=== PATIENT | female | born 1935 | race American Indian/Alaskan Native ===

== ENCOUNTER 2017-02-16 18:23 | Inpatient (IN) | payer MEDICARE, OTHER ==
[2017-02-16] MEDS ORDERED: Vancomycin 1gm in NS 250ml 1 GM/250 ML BAG IVPB STA (18:51)
[2017-02-16] MEDS ORDERED: Sodium Chloride 0.9% 1,000 ML IV STA ×2 (18:52→21:13)
--- NOTE | 2017-02-16 18:53 | ED PDOC ---
Arrival/HPI - General Chief Complaint: Altered Mental Status Time Seen by Provider: 02/16/17 18:29 Historian: Patient - History of Present Illness Narrative History of Present Illness (Text): 02/16/17 18:49 81 year old female whose past medical history includes dementia and diabetes presents to the emergency department after syncopal episode. Patient was slumped over in chair. Last seen normal last evening. As per EMS, patient has a history of dementia. Time/Duration: 24 hours Symptom Onset: Sudden Modifying Factors (Text): None Associated Symptoms (Text): None Past Medical History - Provider Review Nursing Documentation Reviewed: Yes - Infectious Disease Hx of Infectious Diseases: None - Tetanus Immunization Tetanus Immunization: Unknown - Reproductive Menopause: Yes - Cardiac Hx Cardiac Disorders: Yes Hx Hypertension: Yes - Pulmonary Hx Respiratory Disorders: Yes Hx Pneumonia: Yes - Neurological Hx Neurological Disorder: Yes Hx Alzheimer's Disease: Yes Hx Dementia: Yes - HEENT Hx HEENT Disorder: Yes - Renal Hx Renal Disorder: No - Endocrine/Metabolic Hx Endocrine Disorders: Yes Hx Diabetes Mellitus Type 2: Yes - Hematological/Oncological Hx Blood Disorders: Yes Hx Anemia: Yes - Integumentary Hx Dermatological Disorder: No - Musculoskeletal/Rheumatological Hx Musculoskeletal Disorders: Yes Hx Falls: Yes Hx Fractures: Yes Hx Osteomyelitis: Yes Hx Unsteady Gait: Yes - Gastrointestinal Hx Gastrointestinal Disorders: Yes HX Swallowing Problems: Yes - Genitourinary/Gynecological Hx Genitourinary Disorders: Yes Hx Incontinence: Yes Hx Urinary Tract Infection: Yes - Psychiatric Hx Psychophysiologic Disorder: Yes Hx Anxiety: Yes Hx Depression: Yes Hx Substance Use: No - Past Surgical History Past Surgical History: No Previous - Surgical History Hx Amputation: Yes Hx Cardiac Catheterization: Yes Hx Coronary Artery Bypass Graft: Yes Hx Coronary Stent: Yes Hx Musculoskeletal Surgery: Yes (L BKA) - Anesthesia Hx Anesthesia: Yes Hx Anesthesia Reactions: No Hx Malignant Hyperthermia: No - Suicidal Assessment Feels Threatened In Home Enviroment: No Family/Social History - Physician Review Nursing Documentation Reviewed: Yes Family/Social History: Unknown Family HX Smoking Status: Unknown If Ever Smoked Hx Alcohol Use: No Hx Substance Use: No Hx Substance Use Treatment: No Allergies/Home Meds Allergies/Adverse Reactions: Allergies No Known Allergies Allergy (Verified 02/16/17 19:00) Home Medications: Home Meds Medication Instructions Recorded Confirmed Famotidine [Pepcid] 20 mg PO BID 02/19/16 02/16/17 Losartan [Cozaar] 25 mg PO DAILY 02/19/16 02/16/17 Metoprolol Tartrate [Lopressor] 25 mg PO TID 02/19/16 02/16/17 Amiodarone [Cordarone] 200 mg PO DAILY 09/27/16 02/16/17 Atorvastatin [Lipitor] 10 mg PO DIN 09/27/16 02/16/17 Folic Acid 1 mg PO DAILY 09/27/16 02/16/17 MetFORMIN [glucoPHAGE] 1,000 mg PO BID 10/11/16 02/16/17 Review of Systems - Review of Systems Systems not reviewed;Unavailable: Dementia Physical Exam - Physical Exam Narrative Physical Exam (Text): - Physical exam Patient appears age appropriate - Systems Exam Head: Present: Atraumatic, Normocephalic Pupils: Present: PERRL Extraocular Muscles: Present: EOMI Conjunctiva: Present: Normal Mouth: Present: Dry Mucous Membranes Neck: Present: Normal Range of Motion. No: MIDLINE TENDERNESS, Paraspinal Tenderness Respiratory/Chest: Present: Protecting Airway, Clear to Auscultation, Good Air Exchange. No: Respiratory Distress, Accessory Muscle Use, Tachypneic Cardiovascular: Present: Regular Rate and Rhythm, Normal S1, S2, Peripheral Pulses Present. No: Murmurs Abdomen: Present: Normal Bowel Sounds, No: Tenderness, Peritoneal Signs, Rebound, Guarding, Distention Back: Present: Normal Inspection. No: Midline Tenderness, Paraspinal Tenderness Upper Extremity: Present: Normal Inspection. No: Cyanosis, Edema Lower Extremity: Present: Left BKA No: Edema Neurological: Present: No focal neurological deficits. Skin: Present: Stage III sacral decubitus foul smelling ulcer No: Rashes Lymphatic: Present: OX3, NI, NC Psychiatric: Responsive to verbal and tactile stimuli Vital Signs Reviewed: Yes Vital Signs Temp Pulse Resp BP Pulse Ox 02/17/17 01:38 80 126/88 99 02/17/17 00:59 71 24 109/69 99 02/17/17 00:45 81 20 95/57 L 99 02/17/17 00:30 91 H 20 94/61 L 99 02/17/17 00:16 77 93/55 L 99 02/17/17 00:05 74 22 103/79 99 02/16/17 23:35 80 24 108/76 99 02/16/17 23:32 74 20 96/64 L 99 02/16/17 23:29 68 20 95/57 L 99 02/16/17 23:15 65 22 85/36 L 99 02/16/17 23:11 75 82/36 L 99 02/16/17 19:36 74 16 127/87 100 02/16/17 18:39 99.8 F H 78 18 86/69 L 94 L Temperature: Afebrile Blood Pressure: Hypotensive Pulse: Regular Respiratory Rate: Normal Appearance: Positive for: Non-Toxic, Ill-Appearing Pain Distress: None Medical Decision Making ED Course and Treatment: Impression: 81 year old female whose past medical history includes dementia and diabetes presents to the emergency department after syncopal episode. On physical exam, patient has a stage III sacral decubitis foul smelling ulcer. Plan: -- EKG, Chest X-ray -- Vancomycin -- Labs -- Reassess and disposition Prior Visits: Notes and results from previous visits were reviewed. Patient last discharged on 10/18/16 after being treated for altered mental status. Progress Notes: 02/16/17 21:51 Case discussed in detail with Dr. Reyes. EKG sent. States no intervention from cardiology perspective in terms of elevated troponin at this time, except for a blood transfusion. 02/16/17 22:22 family informed of plan, states pt is a Jahova's witness and they will not allow her to be transfused. Aware of risks. Seen and examined by Dr. Palmer from MICU, states to admit pt to tele Dr. Frazier paged for admission CXR shows no infiltrates, no cardiomegaly, no effusions EKG shows sinus, 87bpm, anterior ischemic changes 02/16/17 22:[address] Frazier, accepted pt to tele pt hemodynamically stable in no distress, protecting her airway 02/16/17 23:47 pt's BP decreased again US guided 20g peripheral IV inserted IVFs running, pt fluid responsive seen again by Dr. Palmer, states to place on 100cc/hr NS and pt can still go to tele. Placed order for ABG. dw family about advanced directives, they state they have not spoken about it yet and have not come up with a decision at this time 02/16/17 23:58 BP dropped again >2L bolus at this time will start pressors Dr. Mckeon, asked to page cmo & president for TLC 02/17/17 00:[address] Kan - Lab Interpretations Lab Results: 02/16/17 19:58 02/16/17 19:58 Lab Results 02/16/17 22:20: Urine Color Yellow, Urine Appearance Sl cloudy, Urine pH 7.0, Ur Specific [place] 1.015, Urine Protein 30 H, Urine Glucose (UA) Negative, Urine Ketones 15 H, Urine Blood Trace-intact H, Urine Nitrate Negative, Urine Bilirubin Negative, Urine Urobilinogen 1.0 H, Ur Leukocyte Esterase Negative, Urine RBC 0 - 2, Urine WBC 2 - 5, Ur Epithelial Cells 4 - 5, Urine Bacteria Mod , Urine Other Uyeast 02/16/17 19:58: WBC 12.4 H D, RBC 2.85 L, Hgb 8.2 L, Hct 25.5 L, MCV 89.5, MCH 28.8, MCHC 32.2, RDW 16.8 H, Plt Count 357, MPV 8.9, Gran % 90.3 H, Lymph % ( Auto) 4.6 L, [place] % (Auto) 5.1, Eos % (Auto) 0.0 L, Baso % (Auto) 0.0, Gran # 11.23 H, Lymph # 0.6 L, [place] # 0.6, Eos # 0.0, Baso # 0.00 02/16/17 19:58: Sodium 137, Chloride 99, Potassium 2.2 L* D, Carbon Dioxide 26, Anion Gap 14, BUN 10, Creatinine 0.7, Est GFR ( Amer) > 60, Est GFR (Non- Af Amer) > 60, Random Glucose 175 H, Calcium 8.1 L, Total Bilirubin 0.8, AST 75 H, ALT 29, Alkaline Phosphatase 62, Lactate Dehydrogenase 912 H, Total Creatine Kinase 88, Troponin I 0.68 H* D, Total Protein 5.4 L, Albumin 2.3 L, Globulin 3.1, Albumin/Globulin Ratio 0.7 L 02/16/17 19:58: pO2 98 H, VBG pH 7.38, VBG pCO2 46.0, VBG HCO3 27.2, VBG Total CO2 28.6 H, VBG O2 Sat (Calc) 99.3 H, VBG Base Excess 1.8, VBG Potassium 2.2 L* , Sodium 140.0, Chloride 103.0, Glucose 188 H, Lactate 2.7 H, FiO2 21.0, Venous Blood Potassium 2.2 L* 02/16/17 18:30: POC Glucose (mg/dL) 136 H - RAD Interpretation Radiology Orders: 02/16/17 18:51 CHEST PORTABLE [RAD] Stat - Medication Orders Current Medication Orders: Acetaminophen (Tylenol 325mg Tab) 650 mg PO Q6H PRN PRN Reason: Fever >100.4 F Amiodarone HCl (Cordarone) 200 mg PO DAILY [facility] Last Admin: 02/17/17 11:53 Dose: 200 mg Aspirin (Aspirin Chewable) 81 mg PO DAILY [facility] Last Admin: 02/17/17 11:53 Dose: 81 mg Atorvastatin Calcium (Lipitor) 10 mg PO DIN [facility] Last Admin: 02/17/17 17:43 Dose: 10 mg Collagenase (Santyl) 0 gm TOP DAILY [facility] Last Admin: 02/17/17 10:14 Dose: 1 applic Enoxaparin Sodium (Lovenox) 50 mg SC Q12H [facility] PRN Reason: Protocol Last Admin: 02/17/17 21:16 Dose: 50 mg Folic Acid (Folic Acid) 1 mg PO DAILY [facility] Last Admin: 02/17/17 11:52 Dose: 1 mg Vancomycin HCl (Vancomycin 750 Mg In Ns) 750 mg in 250 mls @ 167 mls/hr IVPB Q12H [facility] PRN Reason: Protocol Last Admin: 02/17/17 23:43 Dose: 167 mls/hr Sodium Chloride (Sodium Chloride 0.9%) 1,000 mls @ 100 mls/hr IV .Q10H [facility] Last Admin: 02/18/17 04:13 Dose: 100 mls/hr NOREPINEPHRINE BIT/0.9 % NACL (Levophed 4 Mg/ 250 Ml Ns Premixed) 4 mg in 250 mls @ 15 mls/hr IV .[id number] PRN; Protocol; 4 MCG/MIN PRN Reason: TITRATE PER MD ORDER Last Titration: 02/18/17 06:38 Dose: 8 mcg/min, 30 mls/hr Meropenem 1g/NS 100mL IVPB (Meropenem 1g/Ns 100ml Ivpb) 1 gm in 100 mls @ 100 mls/hr IVPB Q8 [facility] PRN Reason: Protocol Stop: 02/24/17 06:16 Last Admin: 02/18/17 05:25 Dose: 100 mls/hr Sodium Chloride (Sodium Chloride 0.9%) 1,000 mls @ 999 mls/hr IV .Q1H1M STA Stop: 02/18/17 08:30 Insulin Human Lispro (Humalog Low) 0 units SC ACHS [facility] PRN Reason: Protocol Last Admin: 02/17/17 22:26 Dose: Not Given Non-Admin Reason: Blood Sugar Parameter Metoprolol Tartrate (Lopressor) 25 mg PO Q12 [facility] Last Admin: 02/17/17 21:28 Dose: Not Given Non-Admin Reason: BP Parameters Not Met Ondansetron HCl (Zofran Inj) 4 mg IVP Q6H PRN PRN Reason: Nausea/Vomiting Pantoprazole Sodium (Protonix Ec Tab) 40 mg PO 0630 [facility] Last Admin: 02/17/17 08:00 Dose: Not Given Non-Admin Reason: NPO Sertraline HCl (Zoloft) 50 mg PO DAILY [facility] Last Admin: 02/17/17 11:58 Dose: 50 mg Tramadol HCl (Ultram) 50 mg PO TID PRN PRN Reason: Pain, moderate (4-7) Last Admin: 02/17/17 21:06 Dose: 50 mg Discontinued Medications Aspirin (Aspirin Supp) 300 mg RC STAT STA Stop: 02/16/17 21:16 Last Admin: 02/16/17 22:31 Dose: 300 mg Enoxaparin Sodium (Lovenox) 50 mg SC Q12H [facility] PRN Reason: Protocol Last Admin: 02/17/17 14:39 Dose: Heparin Sodium (Porcine) (Heparin) 5,000 units SC Q12 [facility] PRN Reason: Protocol Last Admin: 02/17/17 10:09 Dose: 5,000 units Sodium Chloride (Sodium Chloride 0.9%) 1,000 mls @ 1,000 mls/hr IV .Q1H STA Stop: 02/16/17 19:51 Last Admin: 02/16/17 19:27 Dose: 1,000 mls/hr Vancomycin HCl (Vancomycin 1gm) 1 gm in 250 mls @ 133.333 mls/hr IVPB STAT [facility] PRN Reason: Protocol Stop: 02/16/17 20:43 Last Admin: 02/16/17 22:30 Dose: 133.333 mls/hr Magnesium Sulfate/Dextrose (Magnesium Sulfate 1 Gm/100 Ml D5w) 1 gm in 100 mls @ 100 mls/hr IVPB ONCE ONE Stop: 02/16/17 21:43 Potassium Chloride (Potassium Chloride 20 Meq/100 Ml) 20 meq in 100 mls @ 50 mls/hr IVPB Q2H [facility] Stop: 02/17/17 00:44 Last Admin: 02/17/17 04:00 Dose: 50 mls/hr Sodium Chloride (Sodium Chloride 0.9%) 1,000 mls @ 1,000 mls/hr IV .Q1H [facility] Stop: 02/16/17 22:12 Last Admin: 02/16/17 22:30 Dose: 1,000 mls/hr Piperacillin Sod/Tazobactam Sod (Zosyn 2.25 Gm In 0.9% 100 Ml) 2.25 gm in 100 mls @ 100 mls/hr IVPB Q6 [facility] PRN Reason: Protocol Stop: 02/17/17 06:59 Last Admin: 02/17/17 04:06 Dose: 100 mls/hr Iron Sucrose 100 mg/ Sodium (Chloride) 105 mls @ 210 mls/hr IVPB ONCE ONE Stop: 02/16/17 23:44 Last Admin: 02/17/17 04:00 Dose: 210 mls/hr Potassium Chloride (Potassium Chloride 20 Meq/100 Ml) 20 meq in 100 mls @ 50 mls/hr IVPB Q2H [facility] Stop: 02/17/17 10:44 Last Admin: 02/17/17 14:07 Dose: 50 mls/hr Magnesium Sulfate 2 gm/ Sodium (Chloride) 104 mls @ 102 mls/hr IVPB ONCE ONE Stop: 02/17/17 08:36 Last Admin: 02/17/17 08:25 Dose: 102 mls/hr Sodium Chloride (Sodium Chloride 0.9%) 1,000 mls @ 999 mls/hr IV .Q1H1M STA Stop: 02/17/17 15:19 Last Admin: 02/17/17 14:32 Dose: 999 mls/hr Sodium Chloride (Sodium Chloride 0.9%) 1,000 mls @ 999 mls/hr IV .Q1H1M STA Stop: 02/17/17 18:55 Last Admin: 02/17/17 18:13 Dose: 999 mls/hr Insulin Human Regular (Humulin R Med) 0 units SC ACHS [facility] PRN Reason: Protocol Last Admin: 02/17/17 08:11 Dose: 1 units Metoprolol Tartrate (Lopressor) 25 mg PO TID [facility] Potassium Chloride (K-Dur 20 Meq Er Tab) 40 meq PO STAT [facility] Stop: 02/16/17 20:45 Last Admin: 02/17/17 01:30 Dose: Potassium Chloride (Potassium Chloride Oral Soln) 40 meq PO Q3 [facility] Stop: 02/17/17 09:01 Last Admin: 02/17/17 12:09 Dose: 40 meq Disposition/Present on Arrival - Present on Arrival Any Indicators Present on Arrival: Yes History of DVT/PE: No History of Uncontrolled Diabetes: Yes Urinary Catheter: Yes History of Decub. Ulcer: Yes History Surgical Site Infection Following: Orthopedic Procedures - Disposition Have Diagnosis and Disposition been Completed?: Yes Diagnosis: Sepsis Disposition: HOSPITALIZED Disposition Time: 23:51 Patient Plan: Admission Condition: CRITICAL
[2017-02-16 20:12] LABS: ADD MANUAL DIFF? NO
[2017-02-16 20:17] LABS: VENOUS BLOOD GAS BASE EXCESS 1.8 mmol/L (0.0-2.0); VENOUS BLOOD PH 7.38 (7.32-7.43)
[2017-02-16 20:30] LABS: GRAN # 11.23 (1.4-6.5); GRAN % 90.3 % (50.0-68.0); HEMATOCRIT 25.5 % (36.0-48.0); LYMPH # 0.6 (1.2-3.4); LYMPH % 4.6 % (22.0-35.0); MEAN CELL VOLUME 89.5 fL (80.0-105.0); MEAN CORPUSCULAR HEMOGLOBIN 28.8 pg (25.0-35.0); MEAN CORPUSCULAR HGB CONC 32.2 g/dl (31.0-37.0); MEAN PLATELET VOLUME 8.9 fl (7.0-11.0); MONO # 0.6 (0.1-0.6); MONO % 5.1 % (1.0-6.0); PLATELET COUNT 357 10^3/uL (120.0-450.0); RED CELL DISTRIBUTION WIDTH 16.8 % (11.5-14.5); WHITE BLOOD COUNT 12.4 10^3/ul (4.5-11.0)
[2017-02-16 20:31] LABS: ALB/GLOB RATIO 0.7 (1.1-1.8); ALKALINE PHOSPHATASE 62 U/L (38-133); ALT/SGPT 29 U/L (7-56); AST/SGOT 75 U/L (15-39); BILIRUBIN,TOTAL 0.8 mg/dL (0.2-1.3); BLOOD UREA NITROGEN 10 mg/dL (7-21); CALCIUM 8.1 mg/dL (8.4-10.5); CARBON DIOXIDE 26 mmol/L (21-33); CHLORIDE 99 mmol/L (98-107); GFR AFRICAN-AMERICAN > 60; GLUCOSE,RANDOM 175 mg/dL (70-110); SODIUM 137 mmol/L (132-148); TOTAL PROTEIN 5.4 g/dL (5.8-8.3)
[2017-02-16 20:33] LABS: POTASSIUM 2.2 mmol/L (3.6-5.0)
[2017-02-16] MEDS ORDERED: Potassium Chloride 20 mEq ER Tab PO STA (20:44)
[2017-02-16] MEDS ORDERED: Magnesium Sulfate 1 gm in D5W 1 GM/100 ML BAG IVPB ONE (20:44)
[2017-02-16 21:05] LABS: TROPONIN I 0.68 ng/mL
--- NOTE | 2017-02-16 22:38 | CP.PCM.CON ---
History of Present Illness - History of Present Illness History of Present Illness: Reason for ICU Consult: multiple comorbidities + Sepsis HPI: 81 y/o female with a PMHx as listed below comes to the ED brought in by her daughters due to altered mental status. Patient's daughters reports that her mother was slumped over in a chair earlier today and she went to check on her and believed she was asleep so she did not attempt to arouse her or investigate any further. She returned about 3-4 hours later and saw her in the same position and attempted to arouse her and she was very lethargic and difficult to arouse. Patient's baseline is that she has dementia and is minimally communicative so this was a big change for her so she was brought to the ED. The patient is unable to participate in the history portion of the exam ; she is awake and alert but does not answer questions. The daughters do report the patient may have had some loose stools recently otherwise did not appear to be febrile, coughing or have any other conditions which were far from her baseline prior to today's events. Patient has been bedbound for at least the last 3-4 months as per the daughters present at bedside. PMHx: DM CAD s/p quadruple bypass 08/2016 Htn history of L BKA R toe osteomyelitis for which she has been receiving IV Abx stage 3 sacral decub history of fem-pop bypass on the left advanced dementia Allergies: NKDA Fam Hx: multiple family members with Htn and DM Soc Hx: no history of tobacco/etoh/illicit drug use; patient is a Jehova's Witness as does not want any blood products as per her daughter, but is ok with receiving IV albumin if needed Meds: Folic Acid pepcid Aricept Lipitor 10 hs Amio 200mg po daily Abilify 5hs Zoloft 50 daily Lopressor 25mg po tid Metformin 1000mg po bid Cozaar 25mg po daily Review of Systems - Review of Systems Systems not reviewed;Unavailable: Dementia, Altered Mental Status Past Patient History - Infectious Disease Hx of Infectious Diseases: None - Tetanus Immunizations Tetanus Immunization: Unknown - Past Social History Smoking Status: Never Smoked Drugs: Denies Home Situation {Lives}: With Family - CARDIAC Hx Cardiac Disorders: Yes Hx Hypertension: Yes - PULMONARY Hx Respiratory Disorders: Yes Hx Pneumonia: Yes - NEUROLOGICAL Hx Neurological Disorder: Yes Hx Alzheimer's Disease: Yes Hx Dementia: Yes - HEENT Hx HEENT Problems: Yes - RENAL Hx Chronic Kidney Disease: No - ENDOCRINE/METABOLIC Hx Endocrine Disorders: Yes Hx Diabetes Mellitus Type 2: Yes - HEMATOLOGICAL/ONCOLOGICAL Hx Blood Disorders: Yes Hx Anemia: Yes - INTEGUMENTARY Hx Dermatological Problems: No - MUSCULOSKELETAL/RHEUMATOLOGICAL Hx Musculoskeletal Disorders: Yes Hx Falls: Yes Hx Fractures: Yes Hx Osteomyelitis: Yes Hx Unsteady Gait: Yes - GASTROINTESTINAL Hx Gastrointestinal Disorders: Yes HX Swallowing Problems: Yes - GENITOURINARY/GYNECOLOGICAL Hx Genitourinary Disorders: Yes Hx Incontinence: Yes Hx Urinary Tract Infection: Yes - PSYCHIATRIC Hx Psychophysiologic Disorder: Yes Hx Anxiety: Yes Hx Depression: Yes Hx Substance Use: No - SURGICAL HISTORY Hx Amputation: Yes Hx Cardiac Catheterization: Yes Hx Coronary Artery Bypass Graft: Yes Hx Coronary Stent: Yes Hx Musculoskeletal Surgery: Yes (L BKA) - ANESTHESIA Hx Anesthesia: Yes Hx Anesthesia Reactions: No Hx Malignant Hyperthermia: No Meds Allergies/Adverse Reactions: Allergies Allergy/AdvReac Type Severity Reaction Status Date / Time No Known Allergies Allergy Verified 02/16/17 19:00 - Medications Medications: Current Medications Potassium Chloride (Potassium Chloride 20 Meq/100 Ml) 20 meq in 100 mls @ 50 mls/hr IVPB Q2H [facility] Stop: 02/17/17 00:44 Physical Exam - Constitutional Appears: Unkempt, Cachectic, Chronically Ill - Head Exam Head Exam: ATRAUMATIC, NORMOCEPHALIC - Eye Exam Eye Exam: EOMI - ENT Exam ENT Exam: Mucous Membranes Dry - Respiratory Exam Respiratory Exam: Clear to Auscultation Bilateral, NORMAL BREATHING PATTERN. absent: Rhonchi, Wheezes - Cardiovascular Exam Cardiovascular Exam: REGULAR RHYTHM, +S1, +S2 - GI/Abdominal Exam GI & Abdominal Exam: Soft. absent: Guarding, Rebound, Tenderness - Rectal Exam Rectal Exam: Deferred - Extremities Exam Additional comments: Left sided BKA; R toe and heel appearing gangrenous - Neurological Exam Neurological exam: Alert Additional comments: arousable, opens eyes and follows some simple commands; not oriented at all - Psychiatric Exam Psychiatric exam: Flat Affect - Skin Skin Exam: Dry, Warm Additional comments: Stg 3 sacral decubitus ulcer Results - Vital Signs Recent Vital Signs: Last Vital Signs Temp 99.8 F H 02/16/17 18:39 Pulse 74 02/16/17 19:36 Resp 16 02/16/17 19:36 BP 127/87 02/16/17 19:36 Pulse Ox 100 02/16/17 19:36 - Labs Result Diagrams: 02/16/17 19:58 02/16/17 19:58 Labs: Laboratory Results - last 24 hr 02/16/17 02/16/17 02/16/17 19:58 19:58 19:58 WBC 12.4 H D RBC 2.85 L Hgb 8.2 L Hct 25.5 L MCV 89.5 MCH 28.8 MCHC 32.2 RDW 16.8 H Plt Count 357 MPV 8.9 Gran % 90.3 H Lymph % (Auto) 4.6 L [place] % (Auto) 5.1 Eos % (Auto) 0.0 L Baso % (Auto) 0.0 Gran # 11.23 H Lymph # 0.6 L [place] # 0.6 Eos # 0.0 Baso # 0.00 pO2 98 H VBG pH 7.38 VBG pCO2 46.0 VBG HCO3 27.2 VBG Total CO2 28.6 H VBG O2 Sat (Calc) 99.3 H VBG Base Excess 1.8 VBG Potassium 2.2 L* Sodium 140.0 137 Chloride 103.0 99 Glucose 188 H Lactate 2.7 H FiO2 21.0 Potassium 2.2 L* D Carbon Dioxide 26 Anion Gap 14 BUN 10 Creatinine 0.7 Est GFR ( Amer) > 60 Est GFR (Non-Af Amer) > 60 Random Glucose 175 H Calcium 8.1 L Total Bilirubin 0.8 AST 75 H ALT 29 Alkaline Phosphatase 62 Lactate Dehydrogenase 912 H Total Creatine Kinase 88 Troponin I 0.68 H* D Total Protein 5.4 L Albumin 2.3 L Globulin 3.1 Albumin/Globulin Ratio 0.7 L Venous Blood Potassium 2.2 L* - EKG Data EKG Interpreted by: Myself EKG shows normal: Sinus rhythm - Imaging and Cardiology Chest x-ray Status: Image reviewed by me (no infiltrates or consolidates; no effusions) Assessment & Plan - Assessment and Plan (Free Text) Assessment: 81 y/o female with an extensive PMHx Htn, CAD s/p 4 vessel bypass 6 months ago, left BKA, right toe osteo/gangrene, stage 3 sacral decub, advanced dementia is brought to the ED by her daughters for altered mental status and is found to have sepsis. Patient's sepsis likely secondary to infected toe/heel/decub, however U/A not done yet so acute cystitis/urosepsis can't entirely be ruled out either. Patient also demonstrates a mild elevation in cardiac marker trop of 0.68; unlikely to determine whether this is a primary event vs type 2 demand ischemia. Patient is demonstrating good vital signs with no signs of hemodynamic collapse ,so she does not appear to require aggressive ICU level care at this time. Should her condition change or deteriorate, I will be available in-house until 7am to re-evaluate as needed. Rec: IV fluids IV Abx Aggressive Potassium supplementation further evaluation into potential source (toe/heel/sacral decub) of acute sepsis all labs available to me thus far have been reviewed personally case d/w Dr. Arnold in the ED Plan: Update (late entry) The patient had a few hypotensive blood pressure readings in the ED, so I was called again to evaluate the patient and the decision was made to keep her in the ICU at least overnight for severe sepsis. Her likely source is the right foot which has necrotic malodorous ulcers +/- her stage 3 sacral decubitus ulcer. Neuro: The patient's mentation has slightly improved since arriving to the ED as per her daughters. I am unfamiliar with her baseline, her PMD may be better able to assess her from that perspective, for now we will perform neurochecks as needed and monitor her closely Pulm: she was escalated to a 100% nonrebreather in ED; I repeated an ABG which showed adequate oxygenation without hypoxia, so she will be brought down to a venti-mask and titrated to keep her sa02 greater than 92; does not appear to have an infectious source in the lungs at this time CVS: recent CABG 6 months ago with a slight elevation in her troponin level on presentation; as per my discussion with the ED Physician who spoke with Dr. Byrne (Cardiology), the patient is not currently planned for any acute intervention at this time; in the even that her enzymes continue to rise, she will be started on therapeutic anticoagulation. ED Physician ordered levophed, however the patient has been sustaining a MAP >65 without the use of levophed, if she is able to sustain her blood pressure without pressor support and only IVF resuscitation we will continue that. In the event that her MAP drops below 65 and she is now volume resuscitated, I will start the NE drip. GI: Will need to assess her nutrition requirements; will place on protonix for GI ppx at this time; will check stool for C. diff as the daughters described her having loose stools recently. Renal: Potassium repleted in the ED, will repeat a BMP to assess whether she requires additional doses of potassium; she has good urine output after receiving about 3L of IVF in the ED, will monitor strict i's and o's along with daily labs. ID: infectious source at this time appears to be the right foot +/- sacral decub ; will continue her on IV Abx, IVF, follow up blood cultures and consults have been placed with Surgery and Podiatry for further management. Heme: hgb of 8.2 along with an elevated trop level concerning for NSTEMI should ideally be transfused to have her hgb closer to 10, however the daughter refused blood transfusion on the basis of her being jehova's witness. Will follow daily bmp's and also consider therapeutic anticoagulation if her troponin level rises. Psych: unable to assess Total time of care: 60 minutes
[2017-02-16 22:44] LABS: URINE BILIRUBIN NEGATIVE (NEGATIVE); URINE BLOOD TRACE-INTACT (NEGATIVE); URINE GLUCOSE (UA) NEGATIVE (NEGATIVE); URINE KETONE 15 mg/dL (NEGATIVE); URINE LEUKOCYTE ESTERASE NEGATIVE Leu/uL (NEGATIVE); URINE PROTEIN 30 mg/dL (<30 mg/dL)
[2017-02-16 22:53] LABS: URINE COLOR YELLOW (YELLOW)
[2017-02-16 22:55] LABS: URINE APPEARANCE SL CLOUDY (CLEAR); URINE RBC 0 - 2 /hpf (0-2)
[2017-02-16 22:56] LABS: URINE BACTERIA MOD (NEG)
[2017-02-16] MEDS ORDERED: Iron Sucrose 100 mg/5 ml Inj (RENAL) IVP ONE (22:58)
[2017-02-16 23:59] LABS: INR 1.31 (0.93-1.08); PARTIAL THROMBOPLASTIN TIME 27.1 Seconds (23.7-30.8)
[2017-02-16 23:59] LABS: ARTERIAL BLOOD GAS HCO3 21.8 mmol/L (21-28); ARTERIAL BLOOD GAS PH 7.47 (7.35-7.45)
[2017-02-17] MEDS ORDERED: Piperacillin/Tazobact 2.25gm 2.25 GM/100 ML BAG IVPB SCH
--- NOTE | 2017-02-17 00:02 | HP ---
HISTORY OF PRESENT ILLNESS: The patient is a 81-year-old known to me from multiple previous admissio ns, was brought to Emergency Room when daughter, Nunu, who usually is her sole chemical laboratory scientist found her slu mped over in the chair. She was found in this position a couple of hours prior to bringing her to [facility]. She thought she was sleeping so she did not disturb her. When she went to check on her again after 3 or 4 hours, she found her in the same position and when she started to arouse her, she was not very communicative, although as a baseline the patient does not talk much. She stares upon a sking any question. So because of her poor responsiveness, she called the ambulance and she was brou ght to Emergency Room. At baseline, the patient is minimally communicative. She recently has bilate ral BKAs and has been bed bound. According to daughter, she has not been eating that well. She has poor appetite and eats a few spoonfuls but there was no history of fever or chills, no nausea, vomiti ng, no diarrhea. She does have back ulcers that have been getting worse. PAST MEDICAL HISTORY: Significant for: 1. Dementia. 2. Fem-pop bypass. 3. Right toe osteomyelitis. 4. History of left below-knee amputation. 5. Hypertension. 6. Status post quadruple bypass. 7. Non-insulin dependent diabetes. ALLERGIES: She is not allergic to any medications. MEDICATIONS AT HOME: She is on folic acid 1 mg daily, Pepcid 20 mg twice a day, Aricept 5 mg daily, Lipitor 10 mg daily, amiodarone 200 daily, , 5 mg at bedtime, Zoloft 50 mg daily, metoprol ol 25 twice a day, metformin 1000 twice a day, losartan 25 daily. SOCIAL HISTORY: She is and lives with her and family who are very caring. The patie nt's overall condition has been declining since she had open heart surgery and BKA. PHYSICAL EXAMINATION: GENERAL: She is awake and alert, answers simple questions, not a good historian. VITAL SIGNS: She has temperature 99.8, pulse 78, respirations 18, blood pressure is 127/87. LUNGS: Bilateral fair airflow, no rhonchi or crackle. HEART: S1, S2 audible. ABDOMEN: Soft, nontender, no rebound, no guarding. NEUROLOGIC: She is awake and alert, answers simple questions. LABORATORY DATA: WBC is 12.4, hemoglobin 8.2, hematocrit 25.5, platelet of 357. Chemistry: Sodium 137, potassium 2.2, chloride 99, CO2 26, BUN 10, creatinine 0.7, blood sugar of 175. Calcium 8.1, T 75. LDH is 912. Troponin 0.68. Total protein 5.4.. X-ray chest is unremarkable. ASSESSMENT: 1. Near syncope, probably secondary to sepsis, source is sacral decubiti. 2. Hypokalemia. 3. Leukocytosis. 4. Stage II sacral decubiti. 5. Non-insulin dependent diabetes. 6. Coronary artery disease, status post angioplasty. 7. Non-ST elevation myocardial infarction with positive troponin. 8. She recently has quadruple bypass. PLAN: The patient will be admitted on telemetry. Blood culture, urine culture and wound cultures reid ve been requested. Empirically start her on antibiotics. Has been started on IV fluids. Potassium has been supplemented. She has been given 2 doses of 40 and 2 doses of IV 20 mEq. Will monitor bloo d sugar and Dr. Scott for consult. We will start the patient on Zosyn and vancomycin to cover f or pseudomonas type and staph. Follow up electrolytes in the a.m. Swathi Frazier MD cc: [phone] TT: 02/17/2017 00:01:56 an
[2017-02-17] MEDS: Sodium Chloride 0.9% 1,000 ML IV SCH ×2 (00:21→15:45)
[2017-02-17] MEDS: NOREPINEPHRINE BIT/0.9 % NACL 4 MG/250 ML BAG IV PRN ×2 (01:38→21:50)
[2017-02-17] MEDS: Vancomycin 750mg 750 MG/250 ML BAG IVPB SCH ×3 (01:39→23:43)
--- NOTE | 2017-02-17 02:04 | CP.PCM.CON ---
<LuciusAnyaAileenJessica - Last Filed: 02/17/17 02:13> History of Present Illness - History of Present Illness History of Present Illness: Surgery: Dr. Gonzalez Reason for consult: septic shock 2/2 multiple wounds and need for central line placement HPI: Patient is a 81 y/o female with sign. pmhx of CAD s/p CABG in Aug 2016 as well as PVD and chronic gangrenous right toe presents with increasing fatigue over the past 12 hours. Patient with dementia and minimal verbal communication so unable to answer questions. Patient daughter at bedside who appears to be primary caregiver gives patient's history. Daughter states she was at home slumped over in a chair and thought she was sleeping; however, a couple hours later patient remained in same position and was difficult to arouse. Daughter called EMS. Daughter states she has had multiple wounds however most appear to be healing well. Over the past couple of days she has noticed an increase in foul odor coming from gangrenous toe. Normally, patient sees internal medicine nurse practitioner for foot care and was recently diagnosed w/ osteomyelitis in which she was receiving antibiotics. PMH: DM, CAD s/p CABG, PVD s/p fem-pop bypass and subsequent left BKA, dementia w/ poor functional status, HTN, Taoist- does not accept blood transfusions, anemia PSH: CABG 2016, Fem-pop-> Left BKA Social: dementia, lives with family, primary child care team lead is daughter Review of Systems - Review of Systems Systems not reviewed;Unavailable: Dementia Past Patient History - Infectious Disease Hx of Infectious Diseases: None - Tetanus Immunizations Tetanus Immunization: Unknown - Past Social History Smoking Status: Unknown If Ever Smoked - CARDIAC Hx Cardiac Disorders: Yes Hx Hypertension: Yes - PULMONARY Hx Respiratory Disorders: Yes Hx Pneumonia: Yes - NEUROLOGICAL Hx Neurological Disorder: Yes Hx Alzheimer's Disease: Yes Hx Dementia: Yes - HEENT Hx HEENT Problems: Yes - RENAL Hx Chronic Kidney Disease: No - ENDOCRINE/METABOLIC Hx Endocrine Disorders: Yes Hx Diabetes Mellitus Type 2: Yes - HEMATOLOGICAL/ONCOLOGICAL Hx Blood Disorders: Yes Hx Anemia: Yes - INTEGUMENTARY Hx Dermatological Problems: No - MUSCULOSKELETAL/RHEUMATOLOGICAL Hx Musculoskeletal Disorders: Yes Hx Falls: Yes Hx Fractures: Yes Hx Osteomyelitis: Yes Hx Unsteady Gait: Yes - GASTROINTESTINAL Hx Gastrointestinal Disorders: Yes HX Swallowing Problems: Yes - GENITOURINARY/GYNECOLOGICAL Hx Genitourinary Disorders: Yes Hx Incontinence: Yes Hx Urinary Tract Infection: Yes - PSYCHIATRIC Hx Psychophysiologic Disorder: Yes Hx Anxiety: Yes Hx Depression: Yes Hx Substance Use: No - SURGICAL HISTORY Hx Amputation: Yes Hx Cardiac Catheterization: Yes Hx Coronary Artery Bypass Graft: Yes Hx Coronary Stent: Yes Hx Musculoskeletal Surgery: Yes (L BKA) - ANESTHESIA Hx Anesthesia: Yes Hx Anesthesia Reactions: No Hx Malignant Hyperthermia: No Meds Allergies/Adverse Reactions: Allergies Allergy/AdvReac Type Severity Reaction Status Date / Time No Known Allergies Allergy Verified 02/16/17 19:00 - Medications Medications: Current Medications Acetaminophen (Tylenol 325mg Tab) 650 mg PO Q6H PRN PRN Reason: Fever >100.4 F Amiodarone HCl (Cordarone) 200 mg PO DAILY ON LICENSE OF [facility] Atorvastatin Calcium (Lipitor) 10 mg PO DIN ON LICENSE OF [facility] Last Admin: 02/17/17 01:39 Dose: Not Given Folic Acid (Folic Acid) 1 mg PO DAILY ON LICENSE OF [facility] Vancomycin HCl (Vancomycin 750 Mg In Ns) 750 mg in 250 mls @ 167 mls/hr IVPB Q12H AMANUEL PRN Reason: Protocol Last Admin: 02/17/17 01:39 Dose: 167 mls/hr Piperacillin Sod/Tazobactam Sod (Zosyn 2.25 Gm In 0.9% 100 Ml) 2.25 gm in 100 mls @ 100 mls/hr IVPB Q6 AMANUEL PRN Reason: Protocol Stop: 02/17/17 06:59 Sodium Chloride (Sodium Chloride 0.9%) 1,000 mls @ 100 mls/hr IV .Q10H AMANUEL Last Admin: 02/17/17 00:21 Dose: 100 mls/hr NOREPINEPHRINE BIT/0.9 % NACL (Levophed 4 Mg/ 250 Ml Ns Premixed) 4 mg in 250 mls @ 15 mls/hr IV .[id number] PRN; Protocol; 4 MCG/MIN PRN Reason: TITRATE PER MD ORDER Last Admin: 02/17/17 01:38 Dose: 4 mcg/min, 15 mls/hr Insulin Human Regular (Humulin R Med) 0 units SC ACHS AMANUEL PRN Reason: Protocol Metoprolol Tartrate (Lopressor) 25 mg PO Q12 AMANUEL Ondansetron HCl (Zofran Inj) 4 mg IVP Q6H PRN PRN Reason: Nausea/Vomiting Pantoprazole Sodium (Protonix Ec Tab) 40 mg PO 0630 AMANUEL Sertraline HCl (Zoloft) 50 mg PO DAILY ON LICENSE OF [facility] Physical Exam - Constitutional Appears: Toxic, Chronically Ill - Head Exam Head Exam: ATRAUMATIC, NORMOCEPHALIC - ENT Exam ENT Exam: Mucous Membranes Dry - Respiratory Exam Respiratory Exam: NORMAL BREATHING PATTERN. absent: Respiratory Distress Additional comments: Chest wall, midline w/ small 1x2cm open wound, from prior CABG. no foul odor, drainage noted. Skin appears healthy. - Cardiovascular Exam Cardiovascular Exam: REGULAR RHYTHM. absent: Tachycardia - GI/Abdominal Exam GI & Abdominal Exam: Soft. absent: Distended, Tenderness - Rectal Exam Additional comments: normal external inspection of rectum w/ light liquid brown stool noted. - Extremities Exam Additional comments: Left BKA, right gangrenous great toe and pressure ulcer on heal - Skin Additional comments: stage3 sacral decub w/ surrounding excoriations encompassing approximately 8-10 cm circumfrentially from center of sacral wound. Left hip pressure wound w/ necrotic overlying tissue, unstagable. Results - Vital Signs Recent Vital Signs: Last Vital Signs Temp 99.8 F H 02/16/17 18:39 Pulse 71 02/17/17 00:59 Resp 24 02/17/17 00:59 BP 109/69 02/17/17 00:59 Pulse Ox 99 02/17/17 00:59 - Labs Result Diagrams: 02/16/17 19:58 02/16/17 19:58 Labs: Laboratory Results - last 24 hr 02/16/17 02/16/17 23:35 23:53 PT 14.1 H INR 1.31 H APTT 27.1 pCO2 30 L pO2 296.0 H HCO3 21.8 ABG pH 7.47 H ABG Total CO2 22.7 ABG O2 Saturation 100.3 H ABG Base Excess -1.6 ABG Potassium 2.0 L* Sodium 141.0 Chloride 112.0 H Glucose 178 H Lactate 1.8 FiO2 100.0 Arterial Blood Potassium 2.0 L* Assessment & Plan - Assessment and Plan (Free Text) Assessment: 81 y/o female w/ septic shock most likely 2/2 gangrenous right great toe, however multiple wounds could be source Plan: -IV abx -melo culture -ICU admission -Central line placed in ER via u/s guidance into right IJ vein -medical management per ICU team -recommend wound care eval -santyl to left hip -medihoney to sacrum w/ optifoam overlying dressing -recommend podiatry consult for great toe -IVF hydration -strict IsOs -d/w Dr. Gonzalez [facility] [place] PGY1 Central Line Placement - Central Line Placement Indication: Emergent IV Access (need for pressors, time out performed at bedside. Consent obtained from daughter for insertion.) Central Line Placement: Right: Supraclavicular, Internal Jugular The Area Was Thoroughly Prepared With: Chlorhexidine, Draped Using Sterile Technique Area Was Locally Anesthetized With: Lidocaine 1% Procedure: Triple Lumen, Placed Using Standard Seldinger Technique, Catheter Was Sewn Into Place, Sterile Dressing Placed Over Line, Procedure Tolerated Well , CXR Ordered To Confirm Placement <Edson Gonzalez - Last Filed: 02/20/17 10:06> Results - Vital Signs Recent Vital Signs: Last Vital Signs Temp 96.6 F L 02/19/17 08:00 Pulse 32 L 02/19/17 11:20 Resp 19 02/19/17 11:00 BP 83/61 L 02/19/17 06:56 Pulse Ox 85 L 02/19/17 11:00 - Labs Result Diagrams: 02/19/17 05:00 02/19/17 05:00 Assessment & Plan - Assessment and Plan (Free Text) Plan: This consultation done under my direct supervision Shreyas Gonzalez MD FACS
[2017-02-17 03:38] LABS: ADD MANUAL DIFF? NO
[2017-02-17 03:47] VITALS: BMI 24.0
[2017-02-17 03:49] LABS: GRAN # 7.78 (1.4-6.5); GRAN % 87.5 % (50.0-68.0); HEMATOCRIT 26.6 % (36.0-48.0); LYMPH # 0.7 (1.2-3.4); LYMPH % 7.6 % (22.0-35.0); MEAN CELL VOLUME 89.6 fL (80.0-105.0); MEAN CORPUSCULAR HEMOGLOBIN 29.3 pg (25.0-35.0); MEAN CORPUSCULAR HGB CONC 32.7 g/dl (31.0-37.0); MEAN PLATELET VOLUME 8.8 fl (7.0-11.0); MONO # 0.4 (0.1-0.6); MONO % 4.9 % (1.0-6.0); PLATELET COUNT 348 10^3/uL (120.0-450.0); RED CELL DISTRIBUTION WIDTH 16.9 % (11.5-14.5); WHITE BLOOD COUNT 8.9 10^3/ul (4.5-11.0)
[2017-02-17 03:53] LABS: BLOOD UREA NITROGEN 10 mg/dL (7-21); GFR AFRICAN-AMERICAN > 60; PHOSPHOROUS 3.3 mg/dL (2.5-4.5); SODIUM 140 mmol/L (132-148)
[2017-02-17 04:14] LABS: ALB/GLOB RATIO 0.8 (1.1-1.8); ALKALINE PHOSPHATASE 61 U/L (38-133); ALT/SGPT 29 U/L (7-56); AST/SGOT 94 U/L (15-39); BILIRUBIN,TOTAL 0.5 mg/dL (0.2-1.3); CALCIUM 7.7 mg/dL (8.4-10.5); CARBON DIOXIDE 20 mmol/L (21-33); CHLORIDE 106 mmol/L (98-107); GLUCOSE,RANDOM 189 mg/dL (70-110); MAGNESIUM 1.4 mg/dL (1.7-2.2); TOTAL PROTEIN 5.2 g/dL (5.8-8.3)
[2017-02-17 04:31] LABS: POTASSIUM 2.2 mmol/L (3.6-5.0)
[2017-02-17] MEDS: Meropenem 1g/NS 100mL IVPB 1 GM/100 ML PIGGYBACK IVPB SCH ×3 (06:47→21:19)
[2017-02-17] MEDS ORDERED: Insulin Reg-MEDIUM-Coverage SC SCH (07:30)
[2017-02-17] MEDS ORDERED: Magnesium Sulfate 2 GM in Sodium Chloride 0.9% 100 ML IVPB ONE (07:35)
[2017-02-17] MEDS: Pantoprazole 40 mg EC Tab PO SCH (08:00)
[2017-02-17] MEDS: Potassium Chloride 20 mEq/15 ml LIQ UD PO SCH ×2 (08:00→12:09)
[2017-02-17] MEDS ORDERED: Magnesium Sulfate 1 gm in D5W 1 GM/100 ML BAG IVPB ONE (08:45)
--- NOTE | 2017-02-17 08:54 | CP.CCUPN ---
<Pallavi Garcia - Last Filed: 02/17/17 15:16> CCU Subjective - Physician Review Subjective (Free Text): 02/17/17 14:36 off levophed. BP stable. Mentation not returned to baseline. trops elevated. CCU Objective - Vital Signs / Intake & Output Intake and Output (Last 8hrs): Intake & Output 02/16/17 02/17/17 02/17/17 22:59 06:59 14:59 Intake Total 70 Balance 70 Weight 131 lb 12.8 oz Intake: IV 70 Other: Voiding Method Indwelling Catheter - Physical Exam Physical Exam Limitations: Positive for: Altered Mental Status Head: Positive for: Atraumatic, Normocephalic Pupils: Positive for: PERRL Conjunctiva: Negative for: Injected, Icteric Mouth: Positive for: Dry Respiratory/Chest: Positive for: Clear to Auscultation. Negative for: Rales, Rhonchi Cardiovascular: Positive for: Regular Rate and Rhythm, Normal S1, S2. Negative for: Tachycardic Abdomen: Positive for: Normal Bowel Sounds. Negative for: Distention Upper Extremity: Positive for: Edema (L) Lower Extremity: Positive for: Other (L BKA. R toe gangrene, heel ulcer, scaral ulcer stage 4, unstagable hip) Skin: Positive for: Warm, Dry - Medications Active Medications: Active Medications Generic Name Dose Route Start Last Admin Trade Name Freq PRN Reason Stop Dose Admin Acetaminophen 650 mg 02/16/17 22:58 Tylenol 325mg Tab PO Q6H PRN Fever >100.4 F Amiodarone HCl 200 mg 02/17/17 10:00 Cordarone PO DAILY [facility] Aspirin 81 mg 02/17/17 10:00 Aspirin Chewable PO DAILY [facility] Atorvastatin Calcium 10 mg 02/16/17 23:00 02/17/17 01:39 Lipitor PO Not Given DIN [facility] Collagenase 0 gm 02/17/17 10:00 Santyl TOP DAILY [facility] Folic Acid 1 mg 02/17/17 10:00 Folic Acid PO DAILY [facility] Heparin Sodium (Porcine) 5,000 units 02/17/17 10:00 Heparin SC Q12 [facility] Protocol Vancomycin HCl 750 mg in 250 mls @ 167 mls/hr 02/16/17 23:00 02/17/17 01:39 Vancomycin 750 Mg In Ns IVPB 167 mls/hr Q12H [facility] Administration Protocol Sodium Chloride 1,000 mls @ 100 mls/hr 02/16/17 23:45 02/17/17 00:21 Sodium Chloride 0.9% IV 100 mls/hr .Q10H [facility] Administration NOREPINEPHRINE BIT/0.9 % NACL 4 mg in 250 mls @ 15 mls/hr 02/17/17 00:00 03:30 Levophed 4 Mg/ 250 Ml Ns Premixed IV 0 mcg/min .[id number] PRN 0 mls/hr TITRATE PER MD ORDER Titration Protocol 4 MCG/MIN Potassium Chloride 20 meq in 100 mls @ 50 mls/hr 02/17/17 04:45 02/17/17 06: 41 Potassium Chloride 20 Meq/100 Ml IVPB 02/17/17 10:44 50 mls/hr Q2H [facility] Administration Meropenem 1g/NS 100mL IVPB 1 gm in 100 mls @ 100 mls/hr 02/17/17 06:15 06:47 Meropenem 1g/Ns 100ml Ivpb IVPB 02/24/17 06:16 100 mls/hr Q8 [facility] Administration Protocol Magnesium Sulfate/Dextrose 1 gm in 100 mls @ 100 mls/hr 02/17/17 08:45 Magnesium Sulfate 1 Gm/100 Ml D5w IVPB 02/17/17 09:44 ONCE ONE Insulin Human Lispro 0 units 02/17/17 11:30 Humalog Low SC ACHS [facility] Protocol Metoprolol Tartrate 25 mg 02/17/17 10:00 Lopressor PO Q12 [facility] Ondansetron HCl 4 mg 02/16/17 22:58 Zofran Inj IVP Q6H PRN Nausea/Vomiting Pantoprazole Sodium 40 mg 02/17/17 06:30 Protonix [place] 0630 [facility] Potassium Chloride 40 meq 02/17/17 06:00 Potassium Chloride Oral Soln PO 02/17/17 09:01 Q3 [facility] Sertraline HCl 50 mg 02/17/17 10:00 Zoloft PO DAILY [facility] - Patient Studies Lab Studies: Lab Studies 02/17/17 02/17/17 02/16/17 Range/Units 03:00 03:00 23:53 WBC 8.9 D (4.5-11.0) 10^3/ul RBC 2.97 L (3.5-6.1) 10^6/uL Hgb 8.7 L (12.0-16.0) gm/dL Hct 26.6 L (36.0-48.0) % MCV 89.6 (80.0-105.0) fL MCH 29.3 (25.0-35.0) pg MCHC 32.7 (31.0-37.0) g/dl RDW 16.9 H (11.5-14.5) % Plt Count 348 (120.0-450.0) 10^3/uL MPV 8.8 (7.0-11.0) fl Gran % 87.5 H (50.0-68.0) % Lymph % (Auto) 7.6 L (22.0-35.0) % [place] % (Auto) 4.9 (1.0-6.0) % Eos % (Auto) 0.0 L (1.5-5.0) % Baso % (Auto) 0.0 (0.0-3.0) % Gran # 7.78 H (1.4-6.5) Lymph # 0.7 L (1.2-3.4) [place] # 0.4 (0.1-0.6) Eos # 0.0 (0.0-0.7) Baso # 0.00 (0.0-2.0) K/mm3 PT (9.9-11.8) Seconds INR (0.93-1.08) APTT (23.7-30.8) Seconds pCO2 30 L (35-45) mm/Hg pO2 296.0 H (80-100) mm/Hg HCO3 21.8 (21-28) mmol/L ABG pH 7.47 H (7.35-7.45) ABG Total CO2 22.7 (22-28) mmol.L ABG O2 Saturation 100.3 H (95-98) % ABG Base Excess -1.6 (-2.0-3.0) mmol/L ABG Potassium 2.0 L* (3.6-5.2) mmol/L Sodium 140 141.0 (132-148) mmol/L Chloride 106 112.0 H (98-107) mmol/L Glucose 178 H (65-105) mg/dl Lactate 1.8 (0.7-2.1) mmol/L FiO2 100.0 % Potassium 2.2 L* (3.6-5.0) mmol/L Carbon Dioxide 20 L (21-33) mmol/L Anion Gap 16 (10-20) BUN 10 (7-21) mg/dL Creatinine 0.7 (0.5-1.4) mg/dL Est GFR ( Amer) > 60 Est GFR (Non-Af Amer) > 60 Random Glucose 189 H (70-110) mg/dL Calcium 7.7 L (8.4-10.5) mg/dL Phosphorus 3.3 (2.5-4.5) mg/dL Magnesium 1.4 L (1.7-2.2) mg/dL Total Bilirubin 0.5 (0.2-1.3) mg/dL AST 94 H (15-39) U/L ALT 29 (7-56) U/L Alkaline Phosphatase 61 (38-133) U/L Total Protein 5.2 L (5.8-8.3) g/dL Albumin 2.3 L (3.0-4.8) g/dL Globulin 2.9 gm/dL Albumin/Globulin Ratio 0.8 L (1.1-1.8) Arterial Blood Potassium 2.0 L* (3.6-5.2) mmol/L 02/16/17 Range/Units 23:35 WBC (4.5-11.0) 10^3/ul RBC (3.5-6.1) 10^6/uL Hgb (12.0-16.0) gm/dL Hct (36.0-48.0) % MCV (80.0-105.0) fL MCH (25.0-35.0) pg MCHC (31.0-37.0) g/dl RDW (11.5-14.5) % Plt Count (120.0-450.0) 10^3/uL MPV (7.0-11.0) fl Gran % (50.0-68.0) % Lymph % (Auto) (22.0-35.0) % [place] % (Auto) (1.0-6.0) % Eos % (Auto) (1.5-5.0) % Baso % (Auto) (0.0-3.0) % Gran # (1.4-6.5) Lymph # (1.2-3.4) [place] # (0.1-0.6) Eos # (0.0-0.7) Baso # (0.0-2.0) K/mm3 PT 14.1 H (9.9-11.8) Seconds INR 1.31 H (0.93-1.08) APTT 27.1 (23.7-30.8) Seconds pCO2 (35-45) mm/Hg pO2 (80-100) mm/Hg HCO3 (21-28) mmol/L ABG pH (7.35-7.45) ABG Total CO2 (22-28) mmol.L ABG O2 Saturation (95-98) % ABG Base Excess (-2.0-3.0) mmol/L ABG Potassium (3.6-5.2) mmol/L Sodium (132-148) mmol/L Chloride (98-107) mmol/L Glucose (65-105) mg/dl Lactate (0.7-2.1) mmol/L FiO2 % Potassium (3.6-5.0) mmol/L Carbon Dioxide (21-33) mmol/L Anion Gap (10-20) BUN (7-21) mg/dL Creatinine (0.5-1.4) mg/dL Est GFR ( Amer) Est GFR (Non-Af Amer) Random Glucose (70-110) mg/dL Calcium (8.4-10.5) mg/dL Phosphorus (2.5-4.5) mg/dL Magnesium (1.7-2.2) mg/dL Total Bilirubin (0.2-1.3) mg/dL AST (15-39) U/L ALT (7-56) U/L Alkaline Phosphatase (38-133) U/L Total Protein (5.8-8.3) g/dL Albumin (3.0-4.8) g/dL Globulin gm/dL Albumin/Globulin Ratio (1.1-1.8) Arterial Blood Potassium (3.6-5.2) mmol/L Laboratory Results - last 24 hr 02/16/17 02/16/17 02/17/17 23:35 23:53 03:00 WBC 8.9 D RBC 2.97 L Hgb 8.7 L Hct 26.6 L MCV 89.6 MCH 29.3 MCHC 32.7 RDW 16.9 H Plt Count 348 MPV 8.8 Gran % 87.5 H Lymph % (Auto) 7.6 L [place] % (Auto) 4.9 Eos % (Auto) 0.0 L Baso % (Auto) 0.0 Gran # 7.78 H Lymph # 0.7 L [place] # 0.4 Eos # 0.0 Baso # 0.00 PT 14.1 H INR 1.31 H APTT 27.1 pCO2 30 L pO2 296.0 H HCO3 21.8 ABG pH 7.47 H ABG Total CO2 22.7 ABG O2 Saturation 100.3 H ABG Base Excess -1.6 ABG Potassium 2.0 L* Sodium 141.0 Chloride 112.0 H Glucose 178 H Lactate 1.8 FiO2 100.0 Potassium Carbon Dioxide Anion Gap BUN Creatinine Est GFR ( Amer) Est GFR (Non-Af Amer) Random Glucose Calcium Phosphorus Magnesium Total Bilirubin AST ALT Alkaline Phosphatase Total Protein Albumin Globulin Albumin/Globulin Ratio Arterial Blood Potassium 2.0 L* 02/17/17 03:00 WBC RBC Hgb Hct MCV MCH MCHC RDW Plt Count MPV Gran % Lymph % (Auto) [place] % (Auto) Eos % (Auto) Baso % (Auto) Gran # Lymph # [place] # Eos # Baso # PT INR APTT pCO2 pO2 HCO3 ABG pH ABG Total CO2 ABG O2 Saturation ABG Base Excess ABG Potassium Sodium 140 Chloride 106 Glucose Lactate FiO2 Potassium 2.2 L* Carbon Dioxide 20 L Anion Gap 16 BUN 10 Creatinine 0.7 Est GFR ( Amer) > 60 Est GFR (Non-Af Amer) > 60 Random Glucose 189 H Calcium 7.7 L Phosphorus 3.3 Magnesium 1.4 L Total Bilirubin 0.5 AST 94 H ALT 29 Alkaline Phosphatase 61 Total Protein 5.2 L Albumin 2.3 L Globulin 2.9 Albumin/Globulin Ratio 0.8 L Arterial Blood Potassium Fingerstick Blood Sugar Results: 196 Critical Care Progress Note - Nutrition Nutrition: Nutrition Category Date Time Status Heart Healthy Diet [DIET] Diets 02/16/17 Breakfast Ordered Assessment/Plan - Assessment and Plan (Free Text) Plan: 81 F, Jahova's witness refused blood transfusion, with Hx dementia/poor historian, CAD s/p quadruple bypass, NIDDM, L BKA, fem-pop bypass, was in ICU for severe sepsis. Pt was found by daughter slumped over in chair for 4 hours, unarousable. At baseline, pt is minimally communicative. At ED arrival, T 99.8, HR 78, 86/69, 94% NRB. Pt has a stage III sacral decubitis foul smelling ulcer. WBC on admission 12.4, lactate 2.7. Hb 8.2 (baseline 9-10), INR 1.31. U/A WBC 2- 5, negative nitrate/Leuk Est. BP decreases in ED, fluid resuccitabled with >2L NS, started levo at 3, now not on any pressor. Received Vanco. 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 Unlikely PNA/UTI Trops increase to 5.2. EKG shows sinus, 87bpm, QTc 524.PAC with junctional escape. Q waves in anterior leads. No significant changes in EKG. Neuro Lethargic CT head - no bleed Card On amiodarone PO Lopressor 25 bid Elevated trops, therapeutic lovenox Pulm Maintain SaO2 > 92 GI Swallow eval - failed NGT with tubefeed GFR > 60 Leyva Endo ISSS Heme Jahova's witness refused blood transfusion chronic anemia ID Stage 3 sacral ulcer Unstabable hip ulcer On vanco Poss debridement Disposition DNR May need master sonar technician PMD: Dr. Frzaier Tomato Pulper Operator: Nunu, daughter Cardiology: Dr. Reyes - Date & Time Date: 02/17/17 Time: 14:39 <Flex EVANS,Ana H - Last Filed: 02/17/17 16:46> CCU Objective - Vital Signs / Intake & Output Vital Signs (Last 4 hours): Vital Signs Pulse 02/17/17 15:07 72 Intake and Output (Last 8hrs): Intake & Output 02/17/17 02/17/17 02/17/17 06:59 14:59 22:59 Intake Total 70 Balance 70 Weight 131 lb 12.8 oz 131 lb 12.8 oz Intake: IV 70 Other: Voiding Method Indwelling Catheter - Medications Active Medications: Active Medications Generic Name Dose Route Start Last Admin Trade Name Freq PRN Reason Stop Dose Admin Acetaminophen 650 mg 02/16/17 22:58 Tylenol 325mg Tab PO Q6H PRN Fever >100.4 F Amiodarone HCl 200 mg 02/17/17 10:00 02/17/17 11:53 Cordarone PO 200 mg DAILY [facility] Administration Aspirin 81 mg 02/17/17 10:00 02/17/17 11:53 Aspirin Chewable PO 81 mg DAILY [facility] Administration Atorvastatin Calcium 10 mg 02/16/17 23:00 02/17/17 01:39 Lipitor PO Not Given DIN [facility]ANUEL Collagenase 0 gm 02/17/17 10:00 02/17/17 10:14 Santyl TOP 1 applic DAILY [facility] Administration Enoxaparin Sodium 50 mg 02/17/17 22:00 Lovenox SC Q12H [facility] Protocol Folic Acid 1 mg 02/17/17 10:00 02/17/17 11:52 Folic Acid PO 1 mg DAILY [facility] Administration Vancomycin HCl 750 mg in 250 mls @ 167 mls/hr 02/16/17 23:00 02/17/17 11:59 Vancomycin 750 Mg In Ns IVPB 167 mls/hr Q12H [facility] Administration Protocol Sodium Chloride 1,000 mls @ 100 mls/hr 02/16/17 23:45 02/17/17 15:45 Sodium Chloride 0.9% IV 100 mls/hr .Q10H [facility]UEL Administration NOREPINEPHRINE BIT/0.9 % NACL 4 mg in 250 mls @ 15 mls/hr 02/17/17 00:00 03:30 Levophed 4 Mg/ 250 Ml Ns Premixed IV 0 mcg/min .[id number] PRN 0 mls/hr TITRATE PER MD ORDER Titration Protocol 4 MCG/MIN Meropenem 1g/NS 100mL IVPB 1 gm in 100 mls @ 100 mls/hr 02/17/17 06:15 14:07 Meropenem 1g/Ns 100ml Ivpb IVPB 02/24/17 06:16 100 mls/hr Q8 [facility] Administration Protocol Insulin Human Lispro 0 units 02/17/17 11:30 02/17/17 11:53 Humalog Low SC Not Given ACHS [facility] Protocol Metoprolol Tartrate 25 mg 02/17/17 10:00 02/17/17 11:54 Lopressor PO 25 mg Q12 [facility] Administration Ondansetron HCl 4 mg 02/16/17 22:58 Zofran Inj IVP Q6H PRN Nausea/Vomiting Pantoprazole Sodium 40 mg 02/17/17 06:30 02/17/17 08:00 Protonix Ec Tab PO Not Given 0630 [facility] Sertraline HCl 50 mg 02/17/17 10:00 02/17/17 11:58 Zoloft PO 50 mg DAILY [facility] Administration Tramadol HCl 50 mg 02/17/17 13:52 Ultram PO TID PRN Pain, moderate (4-7) - Patient Studies Lab Studies: Lab Studies 02/17/17 02/17/17 02/17/17 Range/Units 10:55 10:55 10:55 WBC 10.3 (4.5-11.0) 10^3/ul RBC 3.16 L (3.5-6.1) 10^6/uL Hgb 8.9 L (12.0-16.0) gm/dL Hct 27.9 L (36.0-48.0) % MCV 88.3 (80.0-105.0) fL MCH 28.2 (25.0-35.0) pg MCHC 31.9 (31.0-37.0) g/dl RDW 16.7 H (11.5-14.5) % Plt Count 393 (120.0-450.0) 10^3/uL MPV 8.8 (7.0-11.0) fl Gran % 85.4 H (50.0-68.0) % Lymph % (Auto) 10.0 L (22.0-35.0) % [place] % (Auto) 4.6 (1.0-6.0) % Eos % (Auto) 0.0 L (1.5-5.0) % Baso % (Auto) 0.0 (0.0-3.0) % Gran # 8.79 H (1.4-6.5) Lymph # 1.0 L (1.2-3.4) [place] # 0.5 (0.1-0.6) Eos # 0.0 (0.0-0.7) Baso # 0.00 (0.0-2.0) K/mm3 PT (9.9-11.8) Seconds INR (0.93-1.08) APTT (23.7-30.8) Seconds pCO2 (35-45) mm/Hg pO2 (80-100) mm/Hg HCO3 (21-28) mmol/L ABG pH (7.35-7.45) ABG Total CO2 (22-28) mmol.L ABG O2 Saturation (95-98) % ABG Base Excess (-2.0-3.0) mmol/L ABG Potassium (3.6-5.2) mmol/L VBG pH (7.32-7.43) VBG pCO2 (40-60) VBG HCO3 (21-28) mmol/l VBG Total CO2 (22-28) mmol.L VBG O2 Sat (Calc) (40-65) % VBG Base Excess (0.0-2.0) mmol/L VBG Potassium (3.6-5.2) mmol/L Sodium 141 (132-148) mmol/L Chloride 107 (98-107) mmol/L Glucose (65-105) mg/dl Lactate (0.7-2.1) mmol/L FiO2 % Potassium 2.6 L* (3.6-5.0) mmol/L Carbon Dioxide 23 (21-33) mmol/L Anion Gap 14 (10-20) BUN 10 (7-21) mg/dL Creatinine 0.7 (0.5-1.4) mg/dL Est GFR ( Amer) > 60 Est GFR (Non-Af Amer) > 60 Random Glucose 172 H (70-110) mg/dL Serum Osmolality 299 H (271-296) mosm/kg Calcium 8.1 L (8.4-10.5) mg/dL Phosphorus (2.5-4.5) mg/dL Magnesium 2.0 (1.7-2.2) mg/dL Total Bilirubin 0.6 (0.2-1.3) mg/dL AST 88 H (15-39) U/L ALT 30 (7-56) U/L Alkaline Phosphatase 68 (38-133) U/L Troponin I 5.21 H* D ng/mL NT-Pro-B Natriuret Pep 5610 H (0-450) pg/mL Total Protein 5.7 L (5.8-8.3) g/dL Albumin 2.5 L (3.0-4.8) g/dL Globulin 3.2 gm/dL Albumin/Globulin Ratio 0.8 L (1.1-1.8) Free T4 (0.78-2.19) ng/dL TSH 3rd Generation (0.46-4.68) mIU/mL Arterial Blood Potassium (3.6-5.2) mmol/L Venous Blood Potassium (3.6-5.2) mmol/L Urine Osmolality (50-645) mosm/kg Ur Random Potassium meq/L 02/17/17 02/17/17 02/17/17 Range/Units 10:55 10:55 08:40 WBC (4.5-11.0) 10^3/ul RBC (3.5-6.1) 10^6/uL Hgb (12.0-16.0) gm/dL Hct (36.0-48.0) % MCV (80.0-105.0) fL MCH (25.0-35.0) pg MCHC (31.0-37.0) g/dl RDW (11.5-14.5) % Plt Count (120.0-450.0) 10^3/uL MPV (7.0-11.0) fl Gran % (50.0-68.0) % Lymph % (Auto) (22.0-35.0) % [place] % (Auto) (1.0-6.0) % Eos % (Auto) (1.5-5.0) % Baso % (Auto) (0.0-3.0) % Gran # (1.4-6.5) Lymph # (1.2-3.4) [place] # (0.1-0.6) Eos # (0.0-0.7) Baso # (0.0-2.0) K/mm3 PT (9.9-11.8) Seconds INR (0.93-1.08) APTT (23.7-30.8) Seconds pCO2 (35-45) mm/Hg pO2 41 (80-100) mm/Hg HCO3 (21-28) mmol/L ABG pH (7.35-7.45) ABG Total CO2 (22-28) mmol.L ABG O2 Saturation (95-98) % ABG Base Excess (-2.0-3.0) mmol/L ABG Potassium (3.6-5.2) mmol/L VBG pH 7.36 (7.32-7.43) VBG pCO2 40.0 (40-60) VBG HCO3 22.6 (21-28) mmol/l VBG Total CO2 23.8 (22-28) mmol.L VBG O2 Sat (Calc) 75.7 H (40-65) % VBG Base Excess -2.7 L (0.0-2.0) mmol/L VBG Potassium 2.6 L (3.6-5.2) mmol/L Sodium 143.0 (132-148) mmol/L Chloride 109.0 H (98-107) mmol/L Glucose 186 H (65-105) mg/dl Lactate 2.5 H (0.7-2.1) mmol/L FiO2 21.0 % Potassium (3.6-5.0) mmol/L Carbon Dioxide (21-33) mmol/L Anion Gap (10-20) BUN (7-21) mg/dL Creatinine (0.5-1.4) mg/dL Est GFR ( Amer) Est GFR (Non-Af Amer) Random Glucose (70-110) mg/dL Serum Osmolality (271-296) mosm/kg Calcium (8.4-10.5) mg/dL Phosphorus (2.5-4.5) mg/dL Magnesium (1.7-2.2) mg/dL Total Bilirubin (0.2-1.3) mg/dL AST (15-39) U/L ALT (7-56) U/L Alkaline Phosphatase (38-133) U/L Troponin I ng/mL NT-Pro-B Natriuret Pep (0-450) pg/mL Total Protein (5.8-8.3) g/dL Albumin (3.0-4.8) g/dL Globulin gm/dL Albumin/Globulin Ratio (1.1-1.8) Free T4 2.68 H (0.78-2.19) ng/dL TSH 3rd Generation 0.98 (0.46-4.68) mIU/mL Arterial Blood Potassium (3.6-5.2) mmol/L Venous Blood Potassium 2.6 L (3.6-5.2) mmol/L Urine Osmolality 356 (50-645) mosm/kg Ur Random Potassium 34.2 meq/L 02/17/17 02/17/17 02/16/17 Range/Units 03:00 03:00 23:53 WBC 8.9 D (4.5-11.0) 10^3/ul RBC 2.97 L (3.5-6.1) 10^6/uL Hgb 8.7 L (12.0-16.0) gm/dL Hct 26.6 L (36.0-48.0) % MCV 89.6 (80.0-105.0) fL MCH 29.3 (25.0-35.0) pg MCHC 32.7 (31.0-37.0) g/dl RDW 16.9 H (11.5-14.5) % Plt Count 348 (120.0-450.0) 10^3/uL MPV 8.8 (7.0-11.0) fl Gran % 87.5 H (50.0-68.0) % Lymph % (Auto) 7.6 L (22.0-35.0) % [place] % (Auto) 4.9 (1.0-6.0) % Eos % (Auto) 0.0 L (1.5-5.0) % Baso % (Auto) 0.0 (0.0-3.0) % Gran # 7.78 H (1.4-6.5) Lymph # 0.7 L (1.2-3.4) [place] # 0.4 (0.1-0.6) Eos # 0.0 (0.0-0.7) Baso # 0.00 (0.0-2.0) K/mm3 PT (9.9-11.8) Seconds INR (0.93-1.08) APTT (23.7-30.8) Seconds pCO2 30 L (35-45) mm/Hg pO2 296.0 H (80-100) mm/Hg HCO3 21.8 (21-28) mmol/L ABG pH 7.47 H (7.35-7.45) ABG Total CO2 22.7 (22-28) mmol.L ABG O2 Saturation 100.3 H (95-98) % ABG Base Excess -1.6 (-2.0-3.0) mmol/L ABG Potassium 2.0 L* (3.6-5.2) mmol/L VBG pH (7.32-7.43) VBG pCO2 (40-60) VBG HCO3 (21-28) mmol/l VBG Total CO2 (22-28) mmol.L VBG O2 Sat (Calc) (40-65) % VBG Base Excess (0.0-2.0) mmol/L VBG Potassium (3.6-5.2) mmol/L Sodium 140 141.0 (132-148) mmol/L Chloride 106 112.0 H (98-107) mmol/L Glucose 178 H (65-105) mg/dl Lactate 1.8 (0.7-2.1) mmol/L FiO2 100.0 % Potassium 2.2 L* (3.6-5.0) mmol/L Carbon Dioxide 20 L (21-33) mmol/L Anion Gap 16 (10-20) BUN 10 (7-21) mg/dL Creatinine 0.7 (0.5-1.4) mg/dL Est GFR ( Amer) > 60 Est GFR (Non-Af Amer) > 60 Random Glucose 189 H (70-110) mg/dL Serum Osmolality (271-296) mosm/kg Calcium 7.7 L (8.4-10.5) mg/dL Phosphorus 3.3 (2.5-4.5) mg/dL Magnesium 1.4 L (1.7-2.2) mg/dL Total Bilirubin 0.5 (0.2-1.3) mg/dL AST 94 H (15-39) U/L ALT 29 (7-56) U/L Alkaline Phosphatase 61 (38-133) U/L Troponin I ng/mL NT-Pro-B Natriuret Pep (0-450) pg/mL Total Protein 5.2 L (5.8-8.3) g/dL Albumin 2.3 L (3.0-4.8) g/dL Globulin 2.9 gm/dL Albumin/Globulin Ratio 0.8 L (1.1-1.8) Free T4 (0.78-2.19) ng/dL TSH 3rd Generation (0.46-4.68) mIU/mL Arterial Blood Potassium 2.0 L* (3.6-5.2) mmol/L Venous Blood Potassium (3.6-5.2) mmol/L Urine Osmolality (50-645) mosm/kg Ur Random Potassium meq/L 02/16/17 Range/Units 23:35 WBC (4.5-11.0) 10^3/ul RBC (3.5-6.1) 10^6/uL Hgb (12.0-16.0) gm/dL Hct (36.0-48.0) % MCV (80.0-105.0) fL MCH (25.0-35.0) pg MCHC (31.0-37.0) g/dl RDW (11.5-14.5) % Plt Count (120.0-450.0) 10^3/uL MPV (7.0-11.0) fl Gran % (50.0-68.0) % Lymph % (Auto) (22.0-35.0) % [place] % (Auto) (1.0-6.0) % Eos % (Auto) (1.5-5.0) % Baso % (Auto) (0.0-3.0) % Gran # (1.4-6.5) Lymph # (1.2-3.4) [place] # (0.1-0.6) Eos # (0.0-0.7) Baso # (0.0-2.0) K/mm3 PT 14.1 H (9.9-11.8) Seconds INR 1.31 H (0.93-1.08) APTT 27.1 (23.7-30.8) Seconds pCO2 (35-45) mm/Hg pO2 (80-100) mm/Hg HCO3 (21-28) mmol/L ABG pH (7.35-7.45) ABG Total CO2 (22-28) mmol.L ABG O2 Saturation (95-98) % ABG Base Excess (-2.0-3.0) mmol/L ABG Potassium (3.6-5.2) mmol/L VBG pH (7.32-7.43) VBG pCO2 (40-60) VBG HCO3 (21-28) mmol/l VBG Total CO2 (22-28) mmol.L VBG O2 Sat (Calc) (40-65) % VBG Base Excess (0.0-2.0) mmol/L VBG Potassium (3.6-5.2) mmol/L Sodium (132-148) mmol/L Chloride (98-107) mmol/L Glucose (65-105) mg/dl Lactate (0.7-2.1) mmol/L FiO2 % Potassium (3.6-5.0) mmol/L Carbon Dioxide (21-33) mmol/L Anion Gap (10-20) BUN (7-21) mg/dL Creatinine (0.5-1.4) mg/dL Est GFR ( Amer) Est GFR (Non-Af Amer) Random Glucose (70-110) mg/dL Serum Osmolality (271-296) mosm/kg Calcium (8.4-10.5) mg/dL Phosphorus (2.5-4.5) mg/dL Magnesium (1.7-2.2) mg/dL Total Bilirubin (0.2-1.3) mg/dL AST (15-39) U/L ALT (7-56) U/L Alkaline Phosphatase (38-133) U/L Troponin I ng/mL NT-Pro-B Natriuret Pep (0-450) pg/mL Total Protein (5.8-8.3) g/dL Albumin (3.0-4.8) g/dL Globulin gm/dL Albumin/Globulin Ratio (1.1-1.8) Free T4 (0.78-2.19) ng/dL TSH 3rd Generation (0.46-4.68) mIU/mL Arterial Blood Potassium (3.6-5.2) mmol/L Venous Blood Potassium (3.6-5.2) mmol/L Urine Osmolality (50-645) mosm/kg Ur Random Potassium meq/L Laboratory Results - last 24 hr 02/16/17 02/16/17 02/17/17 23:35 23:53 03:00 WBC 8.9 D RBC 2.97 L Hgb 8.7 L Hct 26.6 L MCV 89.6 MCH 29.3 MCHC 32.7 RDW 16.9 H Plt Count 348 MPV 8.8 Gran % 87.5 H Lymph % (Auto) 7.6 L [place] % (Auto) 4.9 Eos % (Auto) 0.0 L Baso % (Auto) 0.0 Gran # 7.78 H Lymph # 0.7 L [place] # 0.4 Eos # 0.0 Baso # 0.00 PT 14.1 H INR 1.31 H APTT 27.1 pCO2 30 L pO2 296.0 H HCO3 21.8 ABG pH 7.47 H ABG Total CO2 22.7 ABG O2 Saturation 100.3 H ABG Base Excess -1.6 ABG Potassium 2.0 L* VBG pH VBG pCO2 VBG HCO3 VBG Total CO2 VBG O2 Sat (Calc) VBG Base Excess VBG Potassium Sodium 141.0 Chloride 112.0 H Glucose 178 H Lactate 1.8 FiO2 100.0 Potassium Carbon Dioxide Anion Gap BUN Creatinine Est GFR ( Amer) Est GFR (Non-Af Amer) Random Glucose Serum Osmolality Calcium Phosphorus Magnesium Total Bilirubin AST ALT Alkaline Phosphatase Troponin I NT-Pro-B Natriuret Pep Total Protein Albumin Globulin Albumin/Globulin Ratio Free T4 TSH 3rd Generation Arterial Blood Potassium 2.0 L* Venous Blood Potassium Urine Osmolality Ur Random Potassium 02/17/17 02/17/17 02/17/17 03:00 08:40 10:55 WBC RBC Hgb Hct MCV MCH MCHC RDW Plt Count MPV Gran % Lymph % (Auto) [place] % (Auto) Eos % (Auto) Baso % (Auto) Gran # Lymph # [place] # Eos # Baso # PT INR APTT pCO2 pO2 41 HCO3 ABG pH ABG Total CO2 ABG O2 Saturation ABG Base Excess ABG Potassium VBG pH 7.36 VBG pCO2 40.0 VBG HCO3 22.6 VBG Total CO2 23.8 VBG O2 Sat (Calc) 75.7 H VBG Base Excess -2.7 L VBG Potassium 2.6 L Sodium 140 143.0 Chloride 106 109.0 H Glucose 186 H Lactate 2.5 H FiO2 21.0 Potassium 2.2 L* Carbon Dioxide 20 L Anion Gap 16 BUN 10 Creatinine 0.7 Est GFR ( Amer) > 60 Est GFR (Non-Af Amer) > 60 Random Glucose 189 H Serum Osmolality Calcium 7.7 L Phosphorus 3.3 Magnesium 1.4 L Total Bilirubin 0.5 AST 94 H ALT 29 Alkaline Phosphatase 61 Troponin I NT-Pro-B Natriuret Pep Total Protein 5.2 L Albumin 2.3 L Globulin 2.9 Albumin/Globulin Ratio 0.8 L Free T4 TSH 3rd Generation Arterial Blood Potassium Venous Blood Potassium 2.6 L Urine Osmolality 356 Ur Random Potassium 34.2 02/17/17 02/17/17 02/17/17 10:55 10:55 10:55 WBC 10.3 RBC 3.16 L Hgb 8.9 L Hct 27.9 L MCV 88.3 MCH 28.2 MCHC 31.9 RDW 16.7 H Plt Count 393 MPV 8.8 Gran % 85.4 H Lymph % (Auto) 10.0 L [place] % (Auto) 4.6 Eos % (Auto) 0.0 L Baso % (Auto) 0.0 Gran # 8.79 H Lymph # 1.0 L [place] # 0.5 Eos # 0.0 Baso # 0.00 PT INR APTT pCO2 pO2 HCO3 ABG pH ABG Total CO2 ABG O2 Saturation ABG Base Excess ABG Potassium VBG pH VBG pCO2 VBG HCO3 VBG Total CO2 VBG O2 Sat (Calc) VBG Base Excess VBG Potassium Sodium Chloride Glucose Lactate FiO2 Potassium Carbon Dioxide Anion Gap BUN Creatinine Est GFR ( Amer) Est GFR (Non-Af Amer) Random Glucose Serum Osmolality 299 H Calcium Phosphorus Magnesium Total Bilirubin AST ALT Alkaline Phosphatase Troponin I NT-Pro-B Natriuret Pep Total Protein Albumin Globulin Albumin/Globulin Ratio Free T4 2.68 H TSH 3rd Generation 0.98 Arterial Blood Potassium Venous Blood Potassium Urine Osmolality Ur Random Potassium 02/17/17 10:55 WBC RBC Hgb Hct MCV MCH MCHC RDW Plt Count MPV Gran % Lymph % (Auto) [place] % (Auto) Eos % (Auto) Baso % (Auto) Gran # Lymph # [place] # Eos # Baso # PT INR APTT pCO2 pO2 HCO3 ABG pH ABG Total CO2 ABG O2 Saturation ABG Base Excess ABG Potassium VBG pH VBG pCO2 VBG HCO3 VBG Total CO2 VBG O2 Sat (Calc) VBG Base Excess VBG Potassium Sodium 141 Chloride 107 Glucose Lactate FiO2 Potassium 2.6 L* Carbon Dioxide 23 Anion Gap 14 BUN 10 Creatinine 0.7 Est GFR ( Amer) > 60 Est GFR (Non-Af Amer) > 60 Random Glucose 172 H Serum Osmolality Calcium 8.1 L Phosphorus Magnesium 2.0 Total Bilirubin 0.6 AST 88 H ALT 30 Alkaline Phosphatase 68 Troponin I 5.21 H* D NT-Pro-B Natriuret Pep 5610 H Total Protein 5.7 L Albumin 2.5 L Globulin 3.2 Albumin/Globulin Ratio 0.8 L Free T4 TSH 3rd Generation Arterial Blood Potassium Venous Blood Potassium Urine Osmolality Ur Random Potassium EKG/Cardiology Studies: Cardiology / EKG Studies 02/17/17 09:35 EKG [ELECTROCARDIOGRAM] Stat Comment: Reason For Exam: elevated trop 02/17/17 11:56 ELECTROCARDIOGRAM Stat Comment: Reason For Exam: troponin increasing Critical Care Progress Note - Nutrition Nutrition: Nutrition Category Date Time Status NPO Diet [DIET] Diets 02/17/17 Lunch Ordered Attending/Attestation - Attestation I have personally seen and examined this patient.: Yes I have fully participated in the care of the patient.: Yes I have reviewed all pertinent clinical information: Yes Notes (Text): 02/17/17 16:44 81 y/o F w/ Sepsis from multiple sources . END stage Dementia w/ decubitus ulcers and foot ulcerations/ gangrene . Hypotention resolved w. IV fluids and ABX. NON verbal but protects airway. DNR Surgical teams/ podiatry consulted for possible need for debridgement and or amputation . Possible need for paliative surgery and or/ imaging + JOSE. DVT P and NSTEMI placed on Lovenox treatment dose per Cardiology . No plans for Cardiac cath. cc time 55 min
--- NOTE | 2017-02-17 09:17 | RAD ---
HISTORY: PORTABLE COMPARISON: 02/16/2017 FINDINGS: LUNGS: No active pulmonary disease. PLEURA: There is a small right effusion. CARDIOVASCULAR: Normal. OSSEOUS STRUCTURES: No significant abnormalities. VISUALIZED UPPER ABDOMEN: Normal. OTHER FINDINGS: Right internal jugular line in the right atrium. No pneumothorax IMPRESSION: New small right effusion. Right IJ line in satisfactory position
--- NOTE | 2017-02-17 09:51 | RAD ---
HISTORY: cough COMPARISON: No prior. FINDINGS: LUNGS: No active pulmonary disease. PLEURA: No significant pleural effusion identified, no pneumothorax apparent. CARDIOVASCULAR: Normal. OSSEOUS STRUCTURES: Sternal wires VISUALIZED UPPER ABDOMEN: Normal. OTHER FINDINGS: None. IMPRESSION: No active disease.
[2017-02-17] MEDS: Collagenase 250 Units/gm Ointment(30 gm) TOP SCH (10:14)
[2017-02-17 10:56] LABS: ADD MANUAL DIFF? NO
[2017-02-17 11:01] LABS: VENOUS BLOOD GAS BASE EXCESS -2.7 mmol/L (0.0-2.0); VENOUS BLOOD PH 7.36 (7.32-7.43)
[2017-02-17 11:03] LABS: GRAN # 8.79 (1.4-6.5); GRAN % 85.4 % (50.0-68.0); HEMATOCRIT 27.9 % (36.0-48.0); MEAN CELL VOLUME 88.3 fL (80.0-105.0); MEAN CORPUSCULAR HEMOGLOBIN 28.2 pg (25.0-35.0); MEAN CORPUSCULAR HGB CONC 31.9 g/dl (31.0-37.0); MEAN PLATELET VOLUME 8.8 fl (7.0-11.0); MONO # 0.5 (0.1-0.6); MONO % 4.6 % (1.0-6.0); PLATELET COUNT 393 10^3/uL (120.0-450.0); RED CELL DISTRIBUTION WIDTH 16.7 % (11.5-14.5); WHITE BLOOD COUNT 10.3 10^3/ul (4.5-11.0)
--- NOTE | 2017-02-17 11:06 | CON ---
DATE: 02/17/2017 REASON FOR CONSULTATION: Abnormal EKG and elevated troponin. HISTORY OF PRESENT ILLNESS: The patient is a 81-year-old female who has a history of dementia, diabetes mellitus, coronary artery disease status post coronary artery bypass surgery. The patient from the review of the old chart underwent cardiac catheterization in 08/12/2016, which revealed critical stenosis of the left main vessel with an ostial left anterior descending stenosis and multiple critical lesions in the right coronary artery with patent stents in the LAD, circumflex and right coronary artery. The patient subsequently underwent coronary artery bypass surgery. The patient was brought in by the family because of what was described as a syncopal episode as the patient slumped over in her chair. However, as per Dr. Arnold_ in the Emergency Room stated that the patient appeared neglected_ and she had stage 3 sacral decubitus with foul smelling discharge. Troponin was borderline elevated in the Emergency Room and the case was discussed with me and I recommended attending to the most serious problem which is the sepsis. The patient was hypotensive and was started on Levophed infusion, was admitted to ICU. Levophed infusion was discontinued later on. There is no reported ventricular arrhythmia so far. The patient had very poor communication with me and no valuable information could be obtained from the patient. MEDICATIONS: Amiodarone 200 mg orally daily, folic acid 1 mg daily, Lipitor 10 mg once a day, Lopressor 25 mg twice a day, IV meropenem at 1 gram q. 8 hours, potassium chloride intravenous infusion as well as oral solution, Protonix 40 mg p.o. once a day, vancomycin 750 mg intravenously q. 12 hours, Zofran 4 mg intravenous q. 6 hours p.r.n., Zoloft 50 mg p.o. daily. REVIEW OF SYSTEMS: No fever or chills. No hematuria. No reported seizures. PAST MEDICAL HISTORY: Left below-knee amputation, coronary artery bypass surgery, hypertension and diabetes mellitus. PHYSICAL EXAMINATION: GENERAL: The patient is an elderly female who is lethargic and does not appear to be in respiratory distress. VITAL SIGNS: Blood pressure 95/57, heart rate 81, respirations 20, temperature 99.8. HEENT: Pale conjunctivae. CHEST: Diminished air entry bilaterally. HEART: S1, S2 regular. ABDOMEN: Soft. EXTREMITIES: Left below knee amputation and necrotic right big toe with right heel pressure sore. LABORATORY DATA: Hemoglobin and hematocrit 8.7 and 26.6, white count and platelet count are 8.9 and 348,000. INR is 1.31. PTT 27.1. SMA-7 today: Sodium 140, potassium , chloride 106, CO2 of 20, glucose 189, BUN 10, creatinine 0.7. Troponin 0.68, magnesium is below normal at 1.4. I was informed by the Emergency Room team that lactic acid was elevated; however, it cannot be located on the [facility] chemistry results. EKG revealed sinus rhythm with APCs, consider anterior ischemic ST segment changes. Chest x-ray revealed normal cardiac silhouette, no definite infiltrate. ASSESSMENT: 1. Sepsis. The primary source could be urinary tract infection and/or infected sacral decubitus. 2. Coronary artery disease status post coronary artery bypass surgery. 3. Peripheral vascular disease, status post left below-knee amputation, as well as necrotic right big toe with right heel ulcer. 4. Anemia. 5. Hypokalemia and hypomagnesemia. 6. Borderline troponin elevation. Consider non-ST elevation myocardial infarction. 7. R/O CVA RECOMMENDATIONS: Continue amiodarone 200 mg once a day, Lipitor 10 mg once a day, Lopressor 25 mg twice a day. Continue IV potassium chloride replacement and I will start magnesium sulfate intravenous replacement. Continue IV vancomycin, IV meropenem. Obtain a bedside echocardiogram. Septic workup was discussed with the medical team yesterday. Start subcutaneous heparin at 5000 units twice a day and aspirin at 81 mg daily if head CT scan is negative for a bleed Jad Carrillo MD cc: [id number] TT: 02/17/2017 11:06:40 Confirmation # [id number] Dictation # [id number] leopoldo SULLIVAN
[2017-02-17 11:12] LABS: ALB/GLOB RATIO 0.8 (1.1-1.8); ALKALINE PHOSPHATASE 68 U/L (38-133); ALT/SGPT 30 U/L (7-56); AST/SGOT 88 U/L (15-39); BILIRUBIN,TOTAL 0.6 mg/dL (0.2-1.3); BLOOD UREA NITROGEN 10 mg/dL (7-21); CALCIUM 8.1 mg/dL (8.4-10.5); CARBON DIOXIDE 23 mmol/L (21-33); CHLORIDE 107 mmol/L (98-107); GFR AFRICAN-AMERICAN > 60; GLUCOSE,RANDOM 172 mg/dL (70-110); SODIUM 141 mmol/L (132-148); TOTAL PROTEIN 5.7 g/dL (5.8-8.3)
[2017-02-17 11:17] LABS: POTASSIUM 2.6 mmol/L (3.6-5.0)
[2017-02-17 11:28] LABS: TROPONIN I 5.21 ng/mL
[2017-02-17 11:29] LABS: FREE T4 2.68 ng/dL (0.78-2.19)
--- NOTE | 2017-02-17 11:40 | CP.PCM.CON ---
History of Present Illness - History of Present Illness History of Present Illness: 81 year old female with PMH of CAD S/P CABG, history of left hallux osteomyelitis S/P left BKA , Insulin-Dependent Diabetes Mellitus, HTN, degenerative disc disease, chronic Atrial fibrillation, severe Peripheral Vascular Disease (PVD), dementia was brought in to [facility] because of worsening fatigue for the past day or so. She was recently here and was being treated for osteomyelitis of her right hallux and is currently on Cefepime for this. There is note of foul martina coming from the right hallux. There is no note of fever, no convulsions, no loss of consciousness, no diarrhea. Full review of systems is unobtainable because of the patient's dementia. Infectious Diseases consult is requested to further evaluate and manage. Review of Systems - Review of Systems Systems not reviewed;Unavailable: Dementia Past Patient History - Infectious Disease Hx of Infectious Diseases: None - Tetanus Immunizations Tetanus Immunization: Unknown - Past Social History Smoking Status: Former Smoker - CARDIAC Hx Cardiac Disorders: Yes Hx Hypertension: Yes - PULMONARY Hx Respiratory Disorders: Yes Hx Pneumonia: Yes - NEUROLOGICAL Hx Neurological Disorder: Yes Hx Alzheimer's Disease: Yes Hx Dementia: Yes - HEENT Hx HEENT Problems: Yes - RENAL Hx Chronic Kidney Disease: No - ENDOCRINE/METABOLIC Hx Endocrine Disorders: Yes Hx Diabetes Mellitus Type 2: Yes - HEMATOLOGICAL/ONCOLOGICAL Hx Blood Disorders: Yes Hx Anemia: Yes - INTEGUMENTARY Hx Dermatological Problems: No - MUSCULOSKELETAL/RHEUMATOLOGICAL Hx Musculoskeletal Disorders: Yes Hx Falls: Yes Hx Fractures: Yes Hx Osteomyelitis: Yes Hx Unsteady Gait: Yes - GASTROINTESTINAL Hx Gastrointestinal Disorders: Yes HX Swallowing Problems: Yes - GENITOURINARY/GYNECOLOGICAL Hx Genitourinary Disorders: Yes Hx Incontinence: Yes Hx Urinary Tract Infection: Yes - PSYCHIATRIC Hx Psychophysiologic Disorder: Yes Hx Anxiety: Yes Hx Depression: Yes - SURGICAL HISTORY Hx Amputation: Yes Hx Cardiac Catheterization: Yes Hx Coronary Stent: Yes Hx Musculoskeletal Surgery: Yes (L BKA) - ANESTHESIA Hx Anesthesia: Yes Hx Anesthesia Reactions: No Hx Malignant Hyperthermia: No Meds Allergies/Adverse Reactions: Allergies Allergy/AdvReac Type Severity Reaction Status Date / Time No Known Allergies Allergy Verified 02/16/17 19:00 - Medications Medications: Current Medications Acetaminophen (Tylenol 325mg Tab) 650 mg PO Q6H PRN PRN Reason: Fever >100.4 F Amiodarone HCl (Cordarone) 200 mg PO DAILY [facility] Atorvastatin Calcium (Lipitor) 10 mg PO DIN [facility] Last Admin: 02/17/17 01:39 Dose: Not Given Collagenase (Santyl) 0 gm TOP DAILY [facility] Folic Acid (Folic Acid) 1 mg PO DAILY [facility] Vancomycin HCl (Vancomycin 750 Mg In Ns) 750 mg in 250 mls @ 167 mls/hr IVPB Q12H [facility] PRN Reason: Protocol Last Admin: 02/17/17 01:39 Dose: 167 mls/hr Piperacillin Sod/Tazobactam Sod (Zosyn 2.25 Gm In 0.9% 100 Ml) 2.25 gm in 100 mls @ 100 mls/hr IVPB Q6 [facility] PRN Reason: Protocol Stop: 02/17/17 06:59 Last Admin: 02/17/17 04:06 Dose: 100 mls/hr Sodium Chloride (Sodium Chloride 0.9%) 1,000 mls @ 100 mls/hr IV .Q10H [facility] Last Admin: 02/17/17 00:21 Dose: 100 mls/hr NOREPINEPHRINE BIT/0.9 % NACL (Levophed 4 Mg/ 250 Ml Ns Premixed) 4 mg in 250 mls @ 15 mls/hr IV .[id number] PRN; Protocol; 4 MCG/MIN PRN Reason: TITRATE PER MD ORDER Last Admin: 02/17/17 01:38 Dose: 4 mcg/min, 15 mls/hr Potassium Chloride (Potassium Chloride 20 Meq/100 Ml) 20 meq in 100 mls @ 50 mls/hr IVPB Q2H [facility] Stop: 02/17/17 10:44 Insulin Human Regular (Humulin R Med) 0 units SC ACHS [facility] PRN Reason: Protocol Metoprolol Tartrate (Lopressor) 25 mg PO Q12 [facility] Ondansetron HCl (Zofran Inj) 4 mg IVP Q6H PRN PRN Reason: Nausea/Vomiting Pantoprazole Sodium (Protonix Ec Tab) 40 mg PO 0630 [facility] Potassium Chloride (Potassium Chloride Oral Soln) 40 meq PO Q3 [facility] Stop: 02/17/17 09:01 Sertraline HCl (Zoloft) 50 mg PO DAILY [facility] Physical Exam - Constitutional Appears: Non-toxic, No Acute Distress - Head Exam Head Exam: NORMAL INSPECTION - Neck Exam Neck exam: Negative for: Meningismus - Respiratory Exam Respiratory Exam: Decreased Breath Sounds - Cardiovascular Exam Cardiovascular Exam: +S1, +S2 - GI/Abdominal Exam GI & Abdominal Exam: Soft. absent: Tenderness - Extremities Exam Additional comments: right foot with dressings in place Results - Vital Signs Recent Vital Signs: Last Vital Signs Temp 98.3 F 02/17/17 03:14 Pulse 80 02/17/17 03:14 Resp 18 02/17/17 03:14 BP 112/62 02/17/17 03:14 Pulse Ox 99 02/17/17 01:38 - Labs Result Diagrams: 02/17/17 10:55 02/17/17 10:55 Labs: Laboratory Results - last 24 hr 02/16/17 02/16/17 02/17/17 23:35 23:53 03:00 WBC 8.9 D RBC 2.97 L Hgb 8.7 L Hct 26.6 L MCV 89.6 MCH 29.3 MCHC 32.7 RDW 16.9 H Plt Count 348 MPV 8.8 Gran % 87.5 H Lymph % (Auto) 7.6 L Alpine % (Auto) 4.9 Eos % (Auto) 0.0 L Baso % (Auto) 0.0 Gran # 7.78 H Lymph # 0.7 L Alpine # 0.4 Eos # 0.0 Baso # 0.00 PT 14.1 H INR 1.31 H APTT 27.1 pCO2 30 L pO2 296.0 H HCO3 21.8 ABG pH 7.47 H ABG Total CO2 22.7 ABG O2 Saturation 100.3 H ABG Base Excess -1.6 ABG Potassium 2.0 L* Sodium 141.0 Chloride 112.0 H Glucose 178 H Lactate 1.8 FiO2 100.0 Potassium Carbon Dioxide Anion Gap BUN Creatinine Est GFR ( Amer) Est GFR (Non-Af Amer) Random Glucose Calcium Phosphorus Magnesium Total Bilirubin AST ALT Alkaline Phosphatase Total Protein Albumin Globulin Albumin/Globulin Ratio Arterial Blood Potassium 2.0 L* 02/17/17 03:00 WBC RBC Hgb Hct MCV MCH MCHC RDW Plt Count MPV Gran % Lymph % (Auto) Alpine % (Auto) Eos % (Auto) Baso % (Auto) Gran # Lymph # Alpine # Eos # Baso # PT INR APTT pCO2 pO2 HCO3 ABG pH ABG Total CO2 ABG O2 Saturation ABG Base Excess ABG Potassium Sodium 140 Chloride 106 Glucose Lactate FiO2 Potassium 2.2 L* Carbon Dioxide 20 L Anion Gap 16 BUN 10 Creatinine 0.7 Est GFR ( Amer) > 60 Est GFR (Non-Af Amer) > 60 Random Glucose 189 H Calcium 7.7 L Phosphorus 3.3 Magnesium 1.4 L Total Bilirubin 0.5 AST 94 H ALT 29 Alkaline Phosphatase 61 Total Protein 5.2 L Albumin 2.3 L Globulin 2.9 Albumin/Globulin Ratio 0.8 L Arterial Blood Potassium Assessment & Plan - Assessment and Plan (Free Text) Plan: Assessment Consider right foot / hallux gangrene with probable osteomyelitis with leg ischemia history of bilateral HCAP right foot skin and skin structure infection, clinically improved - possible osteomyelitis of the right hallux on MRI CAD S/P CABG 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
[2017-02-17 11:43] LABS: THYROID STIMULATING HORMONE 0.98 mIU/mL (0.46-4.68)
[2017-02-17] MEDS: Insulin Lispro (humaLOG) LOW Coverage SC SCH ×3 (11:53→22:26)
--- NOTE | 2017-02-17 13:07 | RAD ---
HISTORY: s/p ngt placement COMPARISON: No prior. FINDINGS: LUNGS: Patchy infiltrate right lower lobe PLEURA: No significant pleural effusion identified, no pneumothorax apparent. CARDIOVASCULAR: Normal. OSSEOUS STRUCTURES: No significant abnormalities. VISUALIZED UPPER ABDOMEN: Normal. OTHER FINDINGS: None. IMPRESSION: Nasogastric tube is in the gastric fundus in satisfactory position
--- NOTE | 2017-02-17 13:51 | CT ---
PROCEDURE: CT HEAD WITHOUT CONTRAST. HISTORY: r/o bleed COMPARISON: 10/11/2016 TECHNIQUE: Axial computed tomography images were obtained through the head/brain without intravenous contrast. Radiation dose: Total exam DLP = 745 mGy-cm. This CT exam was performed using one or more of the following dose reduction techniques: Automated exposure control, adjustment of the mA and/or kV according to patient size, and/or use of iterative reconstruction technique. FINDINGS: HEMORRHAGE: No intracranial hemorrhage. BRAIN: No mass effect or edema. Evidence of atrophy and mild chronic microvascular ischemic disease. VENTRICLES: Unremarkable. No hydrocephalus. CALVARIUM: Unremarkable. PARANASAL SINUSES: Unremarkable as visualized. No significant inflammatory changes. MASTOID AIR CELLS: Unremarkable as visualized. No inflammatory changes. OTHER FINDINGS: None. IMPRESSION: No acute hemorrhage. No significant interval change.
[2017-02-17] MEDS ORDERED: Sodium Chloride 0.9% 1,000 ML IV STA ×2 (14:19→17:55)
[2017-02-17] MEDS: Enoxaparin 60 mg Syringe SC SCH ×3 (14:33→21:16)
--- NOTE | 2017-02-17 16:39 | CP.PCM.CON ---
<Rasta Beckman - Last Filed: 02/17/17 16:54> History of Present Illness - History of Present Illness History of Present Illness: 81 y/o female patient with PMHx of dementia seen and evaluated at bedside, consulted for evaluation of pedal wounds as potential source for sepsis. Patient was unable to participate in interview due to her dementia but was awake , alert, and cooperative. Nursing staff reports no N/V/F/D/C/SOB/CP or acute overnight events as well. Nursing staff reports improvement in mental status and decreased lethargy. Review of Systems - Review of Systems Systems not reviewed;Unavailable: Dementia, Altered Mental Status Past Patient History - Infectious Disease Hx of Infectious Diseases: None - Tetanus Immunizations Tetanus Immunization: Unknown - Past Social History Smoking Status: Former Smoker - CARDIAC Hx Cardiac Disorders: Yes Hx Hypertension: Yes - PULMONARY Hx Respiratory Disorders: Yes Hx Pneumonia: Yes - NEUROLOGICAL Hx Neurological Disorder: Yes Hx Alzheimer's Disease: Yes Hx Dementia: Yes - HEENT Hx HEENT Problems: Yes - RENAL Hx Chronic Kidney Disease: No - ENDOCRINE/METABOLIC Hx Diabetes Mellitus Type 2: Yes - HEMATOLOGICAL/ONCOLOGICAL Hx Blood Disorders: Yes Hx Anemia: Yes - INTEGUMENTARY Hx Dermatological Problems: No - MUSCULOSKELETAL/RHEUMATOLOGICAL Hx Musculoskeletal Disorders: Yes Hx Falls: Yes Hx Fractures: Yes Hx Osteomyelitis: Yes Hx Unsteady Gait: Yes - GASTROINTESTINAL Hx Gastrointestinal Disorders: Yes HX Swallowing Problems: Yes - GENITOURINARY/GYNECOLOGICAL Hx Genitourinary Disorders: Yes Hx Incontinence: Yes Hx Urinary Tract Infection: Yes - PSYCHIATRIC Hx Psychophysiologic Disorder: Yes Hx Anxiety: Yes Hx Depression: Yes - SURGICAL HISTORY Hx Amputation: Yes Hx Cardiac Catheterization: Yes Hx Coronary Stent: Yes Hx Musculoskeletal Surgery: Yes (L BKA) - ANESTHESIA Hx Anesthesia: Yes Hx Anesthesia Reactions: No Hx Malignant Hyperthermia: No Meds Allergies/Adverse Reactions: Allergies Allergy/AdvReac Type Severity Reaction Status Date / Time No Known Allergies Allergy Verified 02/16/17 19:00 - Medications Medications: Current Medications Acetaminophen (Tylenol 325mg Tab) 650 mg PO Q6H PRN PRN Reason: Fever >100.4 F Amiodarone HCl (Cordarone) 200 mg PO DAILY [facility] Last Admin: 02/17/17 11:53 Dose: 200 mg Aspirin (Aspirin Chewable) 81 mg PO DAILY [facility] Last Admin: 02/17/17 11:53 Dose: 81 mg Atorvastatin Calcium (Lipitor) 10 mg PO DIN [facility] Last Admin: 02/17/17 01:39 Dose: Not Given Collagenase (Santyl) 0 gm TOP DAILY [facility] Last Admin: 02/17/17 10:14 Dose: 1 applic Enoxaparin Sodium (Lovenox) 50 mg SC Q12H [facility] PRN Reason: Protocol Folic Acid (Folic Acid) 1 mg PO DAILY [facility] Last Admin: 02/17/17 11:52 Dose: 1 mg Vancomycin HCl (Vancomycin 750 Mg In Ns) 750 mg in 250 mls @ 167 mls/hr IVPB Q12H [facility] PRN Reason: Protocol Last Admin: 02/17/17 11:59 Dose: 167 mls/hr Sodium Chloride (Sodium Chloride 0.9%) 1,000 mls @ 100 mls/hr IV .Q10H [facility] Last Admin: 02/17/17 15:45 Dose: 100 mls/hr NOREPINEPHRINE BIT/0.9 % NACL (Levophed 4 Mg/ 250 Ml Ns Premixed) 4 mg in 250 mls @ 15 mls/hr IV .[id number] PRN; Protocol; 4 MCG/MIN PRN Reason: TITRATE PER MD ORDER Last Titration: 02/17/17 03:30 Dose: 0 mcg/min, 0 mls/hr Meropenem 1g/NS 100mL IVPB (Meropenem 1g/Ns 100ml Ivpb) 1 gm in 100 mls @ 100 mls/hr IVPB Q8 [facility] PRN Reason: Protocol Stop: 02/24/17 06:16 Last Admin: 02/17/17 14:07 Dose: 100 mls/hr Insulin Human Lispro (Humalog Low) 0 units SC ACHS [facility] PRN Reason: Protocol Last Admin: 02/17/17 11:53 Dose: Not Given Metoprolol Tartrate (Lopressor) 25 mg PO Q12 [facility] Last Admin: 02/17/17 11:54 Dose: 25 mg Ondansetron HCl (Zofran Inj) 4 mg IVP Q6H PRN PRN Reason: Nausea/Vomiting Pantoprazole Sodium (Protonix Ec Tab) 40 mg PO 0630 [facility] Last Admin: 02/17/17 08:00 Dose: Not Given Sertraline HCl (Zoloft) 50 mg PO DAILY [facility] Last Admin: 02/17/17 11:58 Dose: 50 mg Tramadol HCl (Ultram) 50 mg PO TID PRN PRN Reason: Pain, moderate (4-7) Physical Exam - Constitutional Appears: Toxic, No Acute Distress - Extremities Exam Additional comments: 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 PT pulse absent. Skin temperature runs warm to cold from proximal to distal outside of normal limits. No calf tenderness noted. No pedal edema noted. No erythema noted. Neuro: Due to patient's altered mental status and dementia, unable to fully assess neurological status. Protective reflexes remain intact. Derm: Necrotic eschar measuring 2.5 cm x 5 cm noted to posterior heel, with periwound ischemic changes noted. Absent erythema, purulent discharge, and other acute signs of infection noted. Eschar is stable along margins. Dry ischemic necrosis of distal hallux extending proximally to the interphalangeal joint. Absent erythema, purulent drainage, or other acute signs of infection noted. Ortho: Right 2nd and 4th digit amputations noted. Pedal muscle strength graded at least 3/5. Decreased muscle tone and density in all four pedal muscle groups. No gross subluxations noted. - Neurological Exam Neurological exam: Alert, Altered Results - Vital Signs Recent Vital Signs: Last Vital Signs Temp 98.3 F 02/17/17 03:14 Pulse 72 02/17/17 15:07 Resp 18 02/17/17 03:14 BP 114/82 02/17/17 11:54 Pulse Ox 99 02/17/17 01:38 - Labs Result Diagrams: 02/17/17 10:55 02/17/17 10:55 Labs: Laboratory Results - last 24 hr 02/16/17 02/16/17 02/17/17 23:35 23:53 03:00 WBC 8.9 D RBC 2.97 L Hgb 8.7 L Hct 26.6 L MCV 89.6 MCH 29.3 MCHC 32.7 RDW 16.9 H Plt Count 348 MPV 8.8 Gran % 87.5 H Lymph % (Auto) 7.6 L [place] % (Auto) 4.9 Eos % (Auto) 0.0 L Baso % (Auto) 0.0 Gran # 7.78 H Lymph # 0.7 L [place] # 0.4 Eos # 0.0 Baso # 0.00 PT 14.1 H INR 1.31 H APTT 27.1 pCO2 30 L pO2 296.0 H HCO3 21.8 ABG pH 7.47 H ABG Total CO2 22.7 ABG O2 Saturation 100.3 H ABG Base Excess -1.6 ABG Potassium 2.0 L* VBG pH VBG pCO2 VBG HCO3 VBG Total CO2 VBG O2 Sat (Calc) VBG Base Excess VBG Potassium Sodium 141.0 Chloride 112.0 H Glucose 178 H Lactate 1.8 FiO2 100.0 Potassium Carbon Dioxide Anion Gap BUN Creatinine Est GFR ( Amer) Est GFR (Non-Af Amer) Random Glucose Serum Osmolality Calcium Phosphorus Magnesium Total Bilirubin AST ALT Alkaline Phosphatase Troponin I NT-Pro-B Natriuret Pep Total Protein Albumin Globulin Albumin/Globulin Ratio Free T4 TSH 3rd Generation Arterial Blood Potassium 2.0 L* Venous Blood Potassium Urine Osmolality Ur Random Potassium 02/17/17 02/17/17 02/17/17 03:00 08:40 10:55 WBC RBC Hgb Hct MCV MCH MCHC RDW Plt Count MPV Gran % Lymph % (Auto) [place] % (Auto) Eos % (Auto) Baso % (Auto) Gran # Lymph # [place] # Eos # Baso # PT INR APTT pCO2 pO2 41 HCO3 ABG pH ABG Total CO2 ABG O2 Saturation ABG Base Excess ABG Potassium VBG pH 7.36 VBG pCO2 40.0 VBG HCO3 22.6 VBG Total CO2 23.8 VBG O2 Sat (Calc) 75.7 H VBG Base Excess -2.7 L VBG Potassium 2.6 L Sodium 140 143.0 Chloride 106 109.0 H Glucose 186 H Lactate 2.5 H FiO2 21.0 Potassium 2.2 L* Carbon Dioxide 20 L Anion Gap 16 BUN 10 Creatinine 0.7 Est GFR ( Amer) > 60 Est GFR (Non-Af Amer) > 60 Random Glucose 189 H Serum Osmolality Calcium 7.7 L Phosphorus 3.3 Magnesium 1.4 L Total Bilirubin 0.5 AST 94 H ALT 29 Alkaline Phosphatase 61 Troponin I NT-Pro-B Natriuret Pep Total Protein 5.2 L Albumin 2.3 L Globulin 2.9 Albumin/Globulin Ratio 0.8 L Free T4 TSH 3rd Generation Arterial Blood Potassium Venous Blood Potassium 2.6 L Urine Osmolality 356 Ur Random Potassium 34.2 02/17/17 02/17/17 02/17/17 10:55 10:55 10:55 WBC 10.3 RBC 3.16 L Hgb 8.9 L Hct 27.9 L MCV 88.3 MCH 28.2 MCHC 31.9 RDW 16.7 H Plt Count 393 MPV 8.8 Gran % 85.4 H Lymph % (Auto) 10.0 L [place] % (Auto) 4.6 Eos % (Auto) 0.0 L Baso % (Auto) 0.0 Gran # 8.79 H Lymph # 1.0 L [place] # 0.5 Eos # 0.0 Baso # 0.00 PT INR APTT pCO2 pO2 HCO3 ABG pH ABG Total CO2 ABG O2 Saturation ABG Base Excess ABG Potassium VBG pH VBG pCO2 VBG HCO3 VBG Total CO2 VBG O2 Sat (Calc) VBG Base Excess VBG Potassium Sodium Chloride Glucose Lactate FiO2 Potassium Carbon Dioxide Anion Gap BUN Creatinine Est GFR ( Amer) Est GFR (Non-Af Amer) Random Glucose Serum Osmolality 299 H Calcium Phosphorus Magnesium Total Bilirubin AST ALT Alkaline Phosphatase Troponin I NT-Pro-B Natriuret Pep Total Protein Albumin Globulin Albumin/Globulin Ratio Free T4 2.68 H TSH 3rd Generation 0.98 Arterial Blood Potassium Venous Blood Potassium Urine Osmolality Ur Random Potassium 02/17/17 10:55 WBC RBC Hgb Hct MCV MCH MCHC RDW Plt Count MPV Gran % Lymph % (Auto) [place] % (Auto) Eos % (Auto) Baso % (Auto) Gran # Lymph # [place] # Eos # Baso # PT INR APTT pCO2 pO2 HCO3 ABG pH ABG Total CO2 ABG O2 Saturation ABG Base Excess ABG Potassium VBG pH VBG pCO2 VBG HCO3 VBG Total CO2 VBG O2 Sat (Calc) VBG Base Excess VBG Potassium Sodium 141 Chloride 107 Glucose Lactate FiO2 Potassium 2.6 L* Carbon Dioxide 23 Anion Gap 14 BUN 10 Creatinine 0.7 Est GFR ( Amer) > 60 Est GFR (Non-Af Amer) > 60 Random Glucose 172 H Serum Osmolality Calcium 8.1 L Phosphorus Magnesium 2.0 Total Bilirubin 0.6 AST 88 H ALT 30 Alkaline Phosphatase 68 Troponin I 5.21 H* D NT-Pro-B Natriuret Pep 5610 H Total Protein 5.7 L Albumin 2.5 L Globulin 3.2 Albumin/Globulin Ratio 0.8 L Free T4 TSH 3rd Generation Arterial Blood Potassium Venous Blood Potassium Urine Osmolality Ur Random Potassium Assessment & Plan - Assessment and Plan (Free Text) Assessment: 81 year old female with right hallux dry gangrene and right heel necrotic eschar , secondary to PVD. Plan: Patient seen and evaluated. Discussed with the attending Dr. Baldwin, who agrees with and endorses this plan: Charts, labs, and vitals reviewed. Leukocytosis, afebrile, and hypokalemia noted. General surgery note reviewed. Continue antibiotics per ID. - Right foot X-rays ordered - Right lower extremity arterial duplex ordered - Multipodus boot ordered for left foot to offload heel - Wound cultures from: 1) right heel, 2) sacrum, 3) left hip, 4) sternum pending. At this time on evaluation, clinical assessment does not show sepsis source as foot to no presentation of acute signs of infection in foot from either hallux or heel ulcerations. Podiatry will continue to follow this patient while in house. Thank you for allowing podiatry to partake in care of this patient. - Date & Time Date: 02/17/17 Time: 15:00 <Kiko Baldwin - Last Filed: 02/17/17 18:24> Meds - Medications Medications: Current Medications Acetaminophen (Tylenol 325mg Tab) 650 mg PO Q6H PRN PRN Reason: Fever >100.4 F Amiodarone HCl (Cordarone) 200 mg PO DAILY [facility] Last Admin: 02/17/17 11:53 Dose: 200 mg Aspirin (Aspirin Chewable) 81 mg PO DAILY [facility] Last Admin: 02/17/17 11:53 Dose: 81 mg Atorvastatin Calcium (Lipitor) 10 mg PO DIN [facility] Last Admin: 02/17/17 17:43 Dose: 10 mg Collagenase (Santyl) 0 gm TOP DAILY [facility] Last Admin: 02/17/17 10:14 Dose: 1 applic Enoxaparin Sodium (Lovenox) 50 mg SC Q12H [facility] PRN Reason: Protocol Folic Acid (Folic Acid) 1 mg PO DAILY [facility] Last Admin: 02/17/17 11:52 Dose: 1 mg Vancomycin HCl (Vancomycin 750 Mg In Ns) 750 mg in 250 mls @ 167 mls/hr IVPB Q12H [facility] PRN Reason: Protocol Last Admin: 02/17/17 11:59 Dose: 167 mls/hr Sodium Chloride (Sodium Chloride 0.9%) 1,000 mls @ 100 mls/hr IV .Q10H [facility] Last Admin: 02/17/17 15:45 Dose: 100 mls/hr NOREPINEPHRINE BIT/0.9 % NACL (Levophed 4 Mg/ 250 Ml Ns Premixed) 4 mg in 250 mls @ 15 mls/hr IV .[id number] PRN; Protocol; 4 MCG/MIN PRN Reason: TITRATE PER MD ORDER Last Titration: 02/17/17 03:30 Dose: 0 mcg/min, 0 mls/hr Meropenem 1g/NS 100mL IVPB (Meropenem 1g/Ns 100ml Ivpb) 1 gm in 100 mls @ 100 mls/hr IVPB Q8 [facility] PRN Reason: Protocol Stop: 02/24/17 06:16 Last Admin: 02/17/17 14:07 Dose: 100 mls/hr Sodium Chloride (Sodium Chloride 0.9%) 1,000 mls @ 999 mls/hr IV .Q1H1M [facility] Stop: 02/17/17 18:55 Last Admin: 02/17/17 18:13 Dose: 999 mls/hr Insulin Human Lispro (Humalog Low) 0 units SC ACHS [facility] PRN Reason: Protocol Last Admin: 02/17/17 17:00 Dose: Not Given Metoprolol Tartrate (Lopressor) 25 mg PO Q12 [facility] Last Admin: 02/17/17 11:54 Dose: 25 mg Ondansetron HCl (Zofran Inj) 4 mg IVP Q6H PRN PRN Reason: Nausea/Vomiting Pantoprazole Sodium (Protonix Ec Tab) 40 mg PO 0630 [facility] Last Admin: 02/17/17 08:00 Dose: Not Given Sertraline HCl (Zoloft) 50 mg PO DAILY [facility] Last Admin: 02/17/17 11:58 Dose: 50 mg Tramadol HCl (Ultram) 50 mg PO TID PRN PRN Reason: Pain, moderate (4-7) Results - Vital Signs Recent Vital Signs: Last Vital Signs Temp 98.3 F 02/17/17 03:14 Pulse 72 02/17/17 15:07 Resp 18 02/17/17 03:14 BP 114/82 02/17/17 11:54 Pulse Ox 99 02/17/17 01:38 - Labs Result Diagrams: 02/17/17 10:55 02/17/17 17:20 Labs: Laboratory Results - last 24 hr 02/16/17 02/16/17 02/17/17 23:35 23:53 03:00 WBC 8.9 D RBC 2.97 L Hgb 8.7 L Hct 26.6 L MCV 89.6 MCH 29.3 MCHC 32.7 RDW 16.9 H Plt Count 348 MPV 8.8 Gran % 87.5 H Lymph % (Auto) 7.6 L [place] % (Auto) 4.9 Eos % (Auto) 0.0 L Baso % (Auto) 0.0 Gran # 7.78 H Lymph # 0.7 L [place] # 0.4 Eos # 0.0 Baso # 0.00 PT 14.1 H INR 1.31 H APTT 27.1 pCO2 30 L pO2 296.0 H HCO3 21.8 ABG pH 7.47 H ABG Total CO2 22.7 ABG O2 Saturation 100.3 H ABG Base Excess -1.6 ABG Potassium 2.0 L* VBG pH VBG pCO2 VBG HCO3 VBG Total CO2 VBG O2 Sat (Calc) VBG Base Excess VBG Potassium Sodium 141.0 Chloride 112.0 H Glucose 178 H Lactate 1.8 FiO2 100.0 Potassium Carbon Dioxide Anion Gap BUN Creatinine Est GFR ( Amer) Est GFR (Non-Af Amer) POC Glucose (mg/dL) Random Glucose Serum Osmolality Calcium Phosphorus Magnesium Total Bilirubin AST ALT Alkaline Phosphatase Lactate Dehydrogenase Total Creatine Kinase Troponin I NT-Pro-B Natriuret Pep Total Protein Albumin Globulin Albumin/Globulin Ratio Free T4 TSH 3rd Generation Arterial Blood Potassium 2.0 L* Venous Blood Potassium Urine Osmolality Ur Random Potassium 02/17/17 02/17/17 02/17/17 03:00 07:57 08:40 WBC RBC Hgb Hct MCV MCH MCHC RDW Plt Count MPV Gran % Lymph % (Auto) [place] % (Auto) Eos % (Auto) Baso % (Auto) Gran # Lymph # [place] # Eos # Baso # PT INR APTT pCO2 pO2 HCO3 ABG pH ABG Total CO2 ABG O2 Saturation ABG Base Excess ABG Potassium VBG pH VBG pCO2 VBG HCO3 VBG Total CO2 VBG O2 Sat (Calc) VBG Base Excess VBG Potassium Sodium 140 Chloride 106 Glucose Lactate FiO2 Potassium 2.2 L* Carbon Dioxide 20 L Anion Gap 16 BUN 10 Creatinine 0.7 Est GFR ( Amer) > 60 Est GFR (Non-Af Amer) > 60 POC Glucose (mg/dL) 196 H Random Glucose 189 H Serum Osmolality Calcium 7.7 L Phosphorus 3.3 Magnesium 1.4 L Total Bilirubin 0.5 AST 94 H ALT 29 Alkaline Phosphatase 61 Lactate Dehydrogenase Total Creatine Kinase Troponin I NT-Pro-B Natriuret Pep Total Protein 5.2 L Albumin 2.3 L Globulin 2.9 Albumin/Globulin Ratio 0.8 L Free T4 TSH 3rd Generation Arterial Blood Potassium Venous Blood Potassium Urine Osmolality 356 Ur Random Potassium 34.2 02/17/17 02/17/17 02/17/17 10:55 10:55 10:55 WBC RBC Hgb Hct MCV MCH MCHC RDW Plt Count MPV Gran % Lymph % (Auto) [place] % (Auto) Eos % (Auto) Baso % (Auto) Gran # Lymph # [place] # Eos # Baso # PT INR APTT pCO2 pO2 41 HCO3 ABG pH ABG Total CO2 ABG O2 Saturation ABG Base Excess ABG Potassium VBG pH 7.36 VBG pCO2 40.0 VBG HCO3 22.6 VBG Total CO2 23.8 VBG O2 Sat (Calc) 75.7 H VBG Base Excess -2.7 L VBG Potassium 2.6 L Sodium 143.0 Chloride 109.0 H Glucose 186 H Lactate 2.5 H FiO2 21.0 Potassium Carbon Dioxide Anion Gap BUN Creatinine Est GFR ( Amer) Est GFR (Non-Af Amer) POC Glucose (mg/dL) Random Glucose Serum Osmolality 299 H Calcium Phosphorus Magnesium Total Bilirubin AST ALT Alkaline Phosphatase Lactate Dehydrogenase Total Creatine Kinase Troponin I NT-Pro-B Natriuret Pep Total Protein Albumin Globulin Albumin/Globulin Ratio Free T4 2.68 H TSH 3rd Generation 0.98 Arterial Blood Potassium Venous Blood Potassium 2.6 L Urine Osmolality Ur Random Potassium 02/17/17 02/17/17 02/17/17 10:55 10:55 11:36 WBC 10.3 RBC 3.16 L Hgb 8.9 L Hct 27.9 L MCV 88.3 MCH 28.2 MCHC 31.9 RDW 16.7 H Plt Count 393 MPV 8.8 Gran % 85.4 H Lymph % (Auto) 10.0 L [place] % (Auto) 4.6 Eos % (Auto) 0.0 L Baso % (Auto) 0.0 Gran # 8.79 H Lymph # 1.0 L [place] # 0.5 Eos # 0.0 Baso # 0.00 PT INR APTT pCO2 pO2 HCO3 ABG pH ABG Total CO2 ABG O2 Saturation ABG Base Excess ABG Potassium VBG pH VBG pCO2 VBG HCO3 VBG Total CO2 VBG O2 Sat (Calc) VBG Base Excess VBG Potassium Sodium 141 Chloride 107 Glucose Lactate FiO2 Potassium 2.6 L* Carbon Dioxide 23 Anion Gap 14 BUN 10 Creatinine 0.7 Est GFR ( Amer) > 60 Est GFR (Non-Af Amer) > 60 POC Glucose (mg/dL) 143 H Random Glucose 172 H Serum Osmolality Calcium 8.1 L Phosphorus Magnesium 2.0 Total Bilirubin 0.6 AST 88 H ALT 30 Alkaline Phosphatase 68 Lactate Dehydrogenase Total Creatine Kinase Troponin I 5.21 H* D NT-Pro-B Natriuret Pep 5610 H Total Protein 5.7 L Albumin 2.5 L Globulin 3.2 Albumin/Globulin Ratio 0.8 L Free T4 TSH 3rd Generation Arterial Blood Potassium Venous Blood Potassium Urine Osmolality Ur Random Potassium 02/17/17 02/17/17 02/17/17 16:03 17:20 17:20 WBC RBC Hgb Hct MCV MCH MCHC RDW Plt Count MPV Gran % Lymph % (Auto) [place] % (Auto) Eos % (Auto) Baso % (Auto) Gran # Lymph # [place] # Eos # Baso # PT INR APTT pCO2 pO2 58 H HCO3 ABG pH ABG Total CO2 ABG O2 Saturation ABG Base Excess ABG Potassium VBG pH 7.32 VBG pCO2 41.0 VBG HCO3 21.1 VBG Total CO2 22.4 VBG O2 Sat (Calc) 91.1 H VBG Base Excess -4.8 L VBG Potassium 3.6 Sodium 141 144.0 Chloride 112 H 115.0 H Glucose 172 H Lactate 2.4 H FiO2 21.0 Potassium 3.7 Carbon Dioxide 21 Anion Gap 12 BUN 11 Creatinine 0.6 Est GFR ( Amer) > 60 Est GFR (Non-Af Amer) > 60 POC Glucose (mg/dL) 145 H Random Glucose 159 H Serum Osmolality Calcium 7.7 L Phosphorus Magnesium Total Bilirubin AST ALT Alkaline Phosphatase Lactate Dehydrogenase 1009 H Total Creatine Kinase 358 H Troponin I NT-Pro-B Natriuret Pep Total Protein Albumin Globulin Albumin/Globulin Ratio Free T4 TSH 3rd Generation Arterial Blood Potassium Venous Blood Potassium 3.6 Urine Osmolality Ur Random Potassium Attending/Attestation - Attestation I have personally seen and examined this patient.: Yes I have fully participated in the care of the patient.: Yes I have reviewed all pertinent clinical information: Yes
--- NOTE | 2017-02-17 17:10 | PN ---
DATE: 02/17/2017 SUBJECTIVE: The patient is a 81-year-old known to me from previous. She has lost significant weight according to family, not eating and drinking. PHYSICAL EXAMINATION: GENERAL: She is lethargic. VITAL SIGNS: She is afebrile. Pulse 88, respirations 18, blood pressure /82. LUNGS: Bilateral fair airflow, no rhonchi or crackle. HEART: S1, S2 audible. ABDOMEN: Soft. NEUROLOGIC: She is lethargic. She is status post left BKA, right big toe has gangrenous changes. EXTREMITIES: Has right heel ulcer and stage III decubitus ulcer. LABORATORY: WBC 10.3, hemoglobin 8.9, hematocrit 27.9, platelet of 393. Chemistry: Sodium 141, pot assium 2.6, chloride 107, CO2 23, BUN 10, creatinine 0.7, blood sugar of 171. Troponin is 5.21, calc ium 8.1. Random blood sugar is 172. Blood culture and urine cultures are pending. CT scan of the h ead is unremarkable. ASSESSMENT: 1. Sepsis, source is probably multiple decubitus ulcers. 2. Hypokalemia. 3. Right big toe gangrene. 4. Coronary artery disease, status post open heart surgery a couple of months ago. 5. Chronic atrial fibrillation. PLAN: We will continue patient on aspirin 81 daily. She is on amiodarone. She is on folic acid. C ontinue statin. She is on meropenem and vancomycin. Follow up CBC and CMP in a.m. Swathi Frazier MD cc: [phone] TT: 02/17/2017 17:09:07 Confirmation # [id number] Dictation # [id number] leanne
[2017-02-17 17:47] LABS: VENOUS BLOOD GAS BASE EXCESS -4.8 mmol/L (0.0-2.0); VENOUS BLOOD PH 7.32 (7.32-7.43)
[2017-02-17 18:11] LABS: BLOOD UREA NITROGEN 11 mg/dL (7-21); CALCIUM 7.7 mg/dL (8.4-10.5); CARBON DIOXIDE 21 mmol/L (21-33); CHLORIDE 112 mmol/L (98-107); GFR AFRICAN-AMERICAN > 60; GLUCOSE,RANDOM 159 mg/dL (70-110); POTASSIUM 3.7 mmol/L (3.6-5.0); SODIUM 141 mmol/L (132-148)
--- NOTE | 2017-02-17 18:37 | CARD ---
APPROVED REPORT EXAM: Two-dimensional and M-mode echocardiogram with Doppler and color Doppler. INDICATION CAD/SEPSIS 2D DIMENSIONS Left Atrium (2D)4.3 (1.6-4.0cm)IVSd1.0 (0.7-1.1cm) LVDd3.5 (3.9-5.9cm)PWd1.0 (0.7-1.1cm) LVDs3.1 (2.5-4.0cm)FS (%) 13.6 % LVEF (%)29.8 (>50%) M-Mode DIMENSIONS Aortic Root3.00 (2.2-3.7cm)Aortic Cusp Exc.0.40 (1.5-2.0cm) Aortic Valve AoV Peak Ldkeklnf407.0cm/sAoV VTI35.0cmAO Peak GR.12mmHg LVOT Peak Dlvnemyt26.9cm/sLVOT VTI11.60cmAO Mean GR.5mmHg Mitral Valve MV E Rowekgmd61.8cm/sMV A Bzulnhgd75.3cm/sMV YZN46he E/A ratio1.7MVA (PHT)3.33cm2 TDI Lateral E' Peak V9.55cm/sMedial E' Peak V5.36cm/sE/Lateral E'9.8 E/Medial E'17.5 Pulmonary Valve PV Peak Jmmwnajh24.4cm/sPV Peak Grad.1mmHg Tricuspid Valve TR Peak Dzrehzmt063ey/sRAP [id number] Peak Gr.55mmHg [id number] LEFT VENTRICLE The left ventricle is normal size. There is borderline concentric left ventricular hypertrophy. The systolic function is severely impaired. Sever Septal hypokinesis Transmitral Doppler flow pattern is Grade II-pseudonormal filling dynamics. RIGHT VENTRICLE The right ventricle is normal size. There is normal right ventricular wall thickness. The right ventricular systolic function is normal. ATRIA The left atrium is mildly dilated. The right atrium is mildly dilated. AORTIC VALVE The aortic valve is moderately calcified. Hemodynamically significant valvular aortic stenosis cannot be excluded. MITRAL VALVE Mitral annular calcification is moderate to severe. Mitral regurgitation is moderate to severe. TRICUSPID VALVE There is moderate to severe tricuspid regurgitation. There is moderate to severe pulmonary hypertension. GREAT VESSELS The aortic root is normal in size. <Conclusion> The left ventricle is normal size. There is borderline concentric left ventricular hypertrophy. The systolic function is severely impaired. Sever Septal hypokinesis The aortic valve is moderately calcified. Hemodynamically significant valvular aortic stenosis cannot be excluded. Mitral regurgitation is moderate to severe. There is moderate to severe tricuspid regurgitation. There is moderate to severe pulmonary hypertension.
[2017-02-17 22:19] LABS: VENOUS BLOOD GAS BASE EXCESS -7.4 mmol/L (0.0-2.0); VENOUS BLOOD PH 7.31 (7.32-7.43)
[2017-02-18 01:27] LABS: BLOOD UREA NITROGEN 12 mg/dL (7-21); CALCIUM 7.6 mg/dL (8.4-10.5); CARBON DIOXIDE 17 mmol/L (21-33); CHLORIDE 114 mmol/L (98-107); GFR AFRICAN-AMERICAN > 60; GLUCOSE,RANDOM 195 mg/dL (70-110); POTASSIUM 3.7 mmol/L (3.6-5.0); SODIUM 142 mmol/L (132-148)
[2017-02-18 01:59] LABS: VENOUS BLOOD GAS BASE EXCESS -9.2 mmol/L (0.0-2.0)
[2017-02-18 02:04] LABS: TROPONIN I 4.35 ng/mL
[2017-02-18] MEDS: Sodium Chloride 0.9% 1,000 ML IV SCH ×2 (04:13→09:47)
[2017-02-18] MEDS: Meropenem 1g/NS 100mL IVPB 1 GM/100 ML PIGGYBACK IVPB SCH ×3 (05:25→21:16)
[2017-02-18 06:18] LABS: ALB/GLOB RATIO 0.7 (1.1-1.8); ALKALINE PHOSPHATASE 178 U/L (38-133); ALT/SGPT 106 U/L (7-56); AST/SGOT 345 U/L (15-39); BILIRUBIN,TOTAL 0.8 mg/dL (0.2-1.3); BLOOD UREA NITROGEN 13 mg/dL (7-21); CALCIUM 7.5 mg/dL (8.4-10.5); CARBON DIOXIDE 16 mmol/L (21-33); CHLORIDE 116 mmol/L (98-107); GFR AFRICAN-AMERICAN > 60; GLUCOSE,RANDOM 214 mg/dL (70-110); MAGNESIUM 1.7 mg/dL (1.7-2.2); PHOSPHOROUS 2.8 mg/dL (2.5-4.5); POTASSIUM 3.7 mmol/L (3.6-5.0); SODIUM 143 mmol/L (132-148)
[2017-02-18 06:20] LABS: MEAN CELL VOLUME 89.4 fL (80.0-105.0); MEAN CORPUSCULAR HEMOGLOBIN 28.7 pg (25.0-35.0); MEAN CORPUSCULAR HGB CONC 32.1 g/dl (31.0-37.0); MEAN PLATELET VOLUME 8.6 fl (7.0-11.0); PLATELET COUNT 346 10^3/uL (120.0-450.0); RED CELL DISTRIBUTION WIDTH 17.8 % (11.5-14.5); WHITE BLOOD COUNT 10.9 10^3/ul (4.5-11.0)
[2017-02-18 06:22] LABS: ADD MANUAL DIFF? YES; HEMATOCRIT 23.7 % (36.0-48.0)
[2017-02-18] MEDS ORDERED: Sodium Chloride 0.9% 1,000 ML IV STA ×2 (07:30→12:48)
[2017-02-18 07:48] LABS: TROPONIN I 3.76 ng/mL
[2017-02-18] MEDS ORDERED: Magnesium Sulfate 2 GM in Sodium Chloride 0.9% 100 ML IVPB ONE (07:52)
[2017-02-18] MEDS: Pantoprazole 40 mg EC Tab PO SCH (08:18)
[2017-02-18] MEDS: Insulin Lispro (humaLOG) LOW Coverage SC SCH ×4 (08:18→21:57)
[2017-02-18 08:35] LABS: ANISOCYTOSIS 2+; BAND 1 % (0-2); HYPOCHROMIA 2+; NEUTROPHIL 90 % (50.0-70.0); PLATELET ESTIMATE NORMAL (NORMAL); POIKILOCYTOSIS SLIGHT; POLYCHROMASIA SLIGHT
[2017-02-18 08:36] LABS: BURR CELLS SLIGHT; OVALOCYTES SLIGHT
[2017-02-18] MEDS ORDERED: Darbepoetin Alfa 100 mcg/ml Inj SC ONE (09:21)
[2017-02-18] MEDS: Collagenase 250 Units/gm Ointment(30 gm) TOP SCH (09:46)
[2017-02-18] MEDS: Enoxaparin 60 mg Syringe SC SCH ×2 (09:47→22:08)
[2017-02-18] MEDS: NOREPINEPHRINE BIT/0.9 % NACL 4 MG/250 ML BAG IV PRN ×4 (10:00→21:55)
--- NOTE | 2017-02-18 10:08 | CP.PCM.PN ---
<Allyson Lau - Last Filed: 02/18/17 10:04> Subjective - Date & Time of Evaluation Date of Evaluation: 02/18/17 Time of Evaluation: 10:04 - Subjective Subjective: 81 year old female patient was seen and evaluated at bedside [facility] attending, Dr. Baldwin, consulted for evaluation of pedal wounds. Patient was unable to participate in interview due to her dementia but was awake, alert, and cooperative. Nursing staff reports no N/V/F/D/C/SOB/CP or acute overnight events as well. Objective - Vital Signs/Intake and Output Vital Signs (last 24 hours): Temp Pulse Resp BP Pulse Ox 98.6 F 80 17 116/60 94 L 02/17/17 20:00 02/18/17 09:45 02/18/17 05:00 02/18/17 09:45 02/18/17 05:00 Intake and Output: 02/18/17 02/18/17 06:59 18:59 Intake Total 3101.5 108.5 Output Total 200 Balance 2901.5 108.5 - Medications Medications: Current Medications Acetaminophen (Tylenol 325mg Tab) 650 mg PO Q6H PRN PRN Reason: Fever >100.4 F Amiodarone HCl (Cordarone) 200 mg PO DAILY [facility] Last Admin: 02/18/17 09:44 Dose: 200 mg Aspirin (Aspirin Chewable) 81 mg PO DAILY [facility] Last Admin: 02/18/17 09:44 Dose: 81 mg Atorvastatin Calcium (Lipitor) 10 mg PO DIN [facility] Last Admin: 02/17/17 17:43 Dose: 10 mg Collagenase (Santyl) 0 gm TOP DAILY [facility] Last Admin: 02/18/17 09:46 Dose: 1 applic Enoxaparin Sodium (Lovenox) 50 mg SC Q12H [facility] PRN Reason: Protocol Last Admin: 02/18/17 09:47 Dose: 50 mg Folic Acid (Folic Acid) 1 mg PO DAILY [facility] Last Admin: 02/18/17 09:44 Dose: 1 mg Vancomycin HCl (Vancomycin 750 Mg In Ns) 750 mg in 250 mls @ 167 mls/hr IVPB Q12H [facility] PRN Reason: Protocol Last Admin: 02/17/17 23:43 Dose: 167 mls/hr Sodium Chloride (Sodium Chloride 0.9%) 1,000 mls @ 100 mls/hr IV .Q10H [facility] Last Admin: 02/18/17 09:47 Dose: 100 mls/hr NOREPINEPHRINE BIT/0.9 % NACL (Levophed 4 Mg/ 250 Ml Ns Premixed) 4 mg in 250 mls @ 15 mls/hr IV .[id number] PRN; Protocol; 4 MCG/MIN PRN Reason: TITRATE PER MD ORDER Last Admin: 02/18/17 10:00 Dose: 6 mcg/min, 22.5 mls/hr Meropenem 1g/NS 100mL IVPB (Meropenem 1g/Ns 100ml Ivpb) 1 gm in 100 mls @ 100 mls/hr IVPB Q8 [facility] PRN Reason: Protocol Stop: 02/24/17 06:16 Last Admin: 02/18/17 05:25 Dose: 100 mls/hr Iron Sucrose 200 mg/ Sodium (Chloride) 110 mls @ 110 mls/hr IVPB ONCE ONE Stop: 02/18/17 10:20 Insulin Human Lispro (Humalog Low) 0 units SC ACHS [facility] PRN Reason: Protocol Last Admin: 02/18/17 08:18 Dose: 3 units Metoprolol Tartrate (Lopressor) 25 mg PO Q12 [facility] Last Admin: 02/18/17 09:45 Dose: 25 mg Ondansetron HCl (Zofran Inj) 4 mg IVP Q6H PRN PRN Reason: Nausea/Vomiting Pantoprazole Sodium (Protonix Ec Tab) 40 mg PO 0630 [facility] Last Admin: 02/18/17 08:18 Dose: 40 mg Sertraline HCl (Zoloft) 50 mg PO DAILY [facility] Last Admin: 02/18/17 09:44 Dose: 50 mg Tramadol HCl (Ultram) 50 mg PO TID PRN PRN Reason: Pain, moderate (4-7) Last Admin: 02/17/17 21:06 Dose: 50 mg - Labs Labs: 02/18/17 06:00 02/18/17 06:00 PT 14.1 Seconds (9.9-11.8) H 02/16/17 23:35 INR 1.31 (0.93-1.08) H 02/16/17 23:35 APTT 27.1 Seconds (23.7-30.8) 02/16/17 23:35 - Constitutional Appears: No Acute Distress, Chronically Ill - Extremities Exam Additional comments: 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 PT pulse absent. Skin temperature runs warm to cold from proximal to distal outside of normal limits. No calf tenderness noted. No pedal edema noted. No erythema noted. Neuro: Due to patient's altered mental status and dementia, unable to fully assess neurological status. Protective reflexes remain intact. Derm: Necrotic eschar measuring approximately 2.5 cm x 5 cm noted to posterior heel, with periwound ischemic changes noted. Absent erythema, purulent discharge , and other acute signs of infection noted. Eschar is stable along margins. Dry ischemic necrosis of distal hallux extending proximally to the interphalangeal joint. Absent erythema, purulent drainage, or other acute signs of infection noted. 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 Plan: Patient seen and evaluated with attending, Dr. Baldwin Charts, labs, and vitals reviewed. Continue antibiotics per ID. Right foot X-rays pending Right lower extremity arterial duplex pending wound culture pending right hallux and heel ulcer dressed with betadine, DSD. Multipodus boot to be applied to right foot while patient in bed Podiatry will continue to follow this patient while in house. <Kiko Baldwin - Last Filed: 02/19/17 21:10> Objective - Vital Signs/Intake and Output Vital Signs (last 24 hours): Temp Pulse Resp BP Pulse Ox 96.6 F L 32 L 19 83/61 L 85 L 02/19/17 08:00 02/19/17 11:20 02/19/17 11:00 02/19/17 06:56 02/19/17 11:00 Intake and Output: 02/19/17 02/20/17 18:59 06:59 Intake Total 0 Balance 0 - Labs Labs: 02/19/17 05:00 02/19/17 05:00 PT 29.1 Seconds (9.9-11.8) H 02/19/17 05:00 INR 2.69 (0.93-1.08) H 02/19/17 05:00 APTT 51.9 Seconds (23.7-30.8) H 02/19/17 05:00 Attending/Attestation - Attestation I have personally seen and examined this patient.: Yes I have fully participated in the care of the patient.: Yes I have reviewed all pertinent clinical information, including history, physical exam and plan: Yes
[2017-02-18] MEDS ORDERED: Sodium Bicarbonate (8.4%) 50 Meq Syringe IVP ONE (10:12)
--- NOTE | 2017-02-18 10:17 | CP.CCUPN ---
CCU Subjective - Physician Review Events Since Last Encounter (Free Text): 02/18/17 10:13 Overnight the patient became more hypotensive and IVC was checked which showed > 30% change. 3 L of NS was given and Levophed was started. This a.m seen to be comfortable and trackin gin the room. CCU Objective - Vital Signs / Intake & Output Vital Signs (Last 4 hours): Vital Signs Pulse BP 02/18/17 09:45 80 116/60 02/18/17 09:44 84 116/60 Intake and Output (Last 8hrs): Intake & Output 02/17/17 02/18/17 02/18/17 22:59 06:59 14:59 Intake Total 4080 2921.5 108.5 Output Total 130 200 Balance 3950 2721.5 108.5 Intake: IV 3930 2741.5 108.5 Right Internal Jugular 3750 2600 Tube Feeding 60 180 Other 90 Output: Urine 130 200 Urethral (Leyva) 130 200 Other: # Bowel Movements 4 1 - Physical Exam Head: Positive for: Atraumatic, Normocephalic Pupils: Positive for: PERRL Extroacular Muscles: Positive for: EOMI Conjunctiva: Positive for: Normal. Negative for: Injected, Icteric Mouth: Positive for: Moist Mucous Membranes, Dry Nose (Internal): Positive for: Normal Inspection Respiratory/Chest: Positive for: Clear to Auscultation, Good Air Exchange. Negative for: Rales, Rhonchi Cardiovascular: Positive for: Regular Rate and Rhythm, Normal S1, S2. Negative for: Tachycardic Abdomen: Positive for: Normal Bowel Sounds. Negative for: Distention Upper Extremity: Positive for: Normal Inspection, Edema (L) Lower Extremity: Positive for: Normal Inspection, Other (L BKA. R toe gangrene, heel ulcer, scaral ulcer stage 4, unstagable hip) Skin: Positive for: Warm, Dry Psychiatric: Positive for: Alert - Medications Active Medications: Active Medications Generic Name Dose Route Start Last Admin Trade Name Freq PRN Reason Stop Dose Admin Acetaminophen 650 mg 02/16/17 22:58 Tylenol 325mg Tab PO Q6H PRN Fever >100.4 F Amiodarone HCl 200 mg 02/17/17 10:00 02/18/17 09:44 Cordarone PO 200 mg DAILY AMANUEL Administration Aspirin 81 mg 02/17/17 10:00 02/18/17 09:44 Aspirin Chewable PO 81 mg DAILY AMANUEL Administration Atorvastatin Calcium 10 mg 02/16/17 23:00 02/17/17 17:43 Lipitor PO 10 mg DIN AMANUEL Administration Collagenase 0 gm 02/17/17 10:00 02/18/17 09:46 Santyl TOP 1 applic DAILY AMANUEL Administration Enoxaparin Sodium 50 mg 02/17/17 22:00 02/18/17 09:47 Lovenox SC 50 mg Q12H AMANUEL Administration Protocol Folic Acid 1 mg 02/17/17 10:00 02/18/17 09:44 Folic Acid PO 1 mg DAILY AMANUEL Administration Vancomycin HCl 750 mg in 250 mls @ 167 mls/hr 02/16/17 23:00 02/17/17 23:43 Vancomycin 750 Mg In Ns IVPB 167 mls/hr Q12H AMANUEL Administration Protocol Sodium Chloride 1,000 mls @ 100 mls/hr 02/16/17 23:45 02/18/17 09:47 Sodium Chloride 0.9% IV 100 mls/hr .Q10H AMANUEL Administration NOREPINEPHRINE BIT/0.9 % NACL 4 mg in 250 mls @ 15 mls/hr 02/17/17 00:00 10:00 Levophed 4 Mg/ 250 Ml Ns Premixed IV 6 mcg/min .[id number] PRN 22.5 mls/hr TITRATE PER MD ORDER Administration Protocol 4 MCG/MIN Meropenem 1g/NS 100mL IVPB 1 gm in 100 mls @ 100 mls/hr 02/17/17 06:15 05:25 Meropenem 1g/Ns 100ml Ivpb IVPB 02/24/17 06:16 100 mls/hr Q8 AMANUEL Administration Protocol Iron Sucrose 200 mg/ Sodium 110 mls @ 110 mls/hr 02/18/17 09:21 Chloride IVPB 02/18/17 10:20 ONCE ONE Insulin Human Lispro 0 units 02/17/17 11:30 02/18/17 08:18 Humalog Low SC 3 units ACHS AMANUEL Administration Protocol Metoprolol Tartrate 25 mg 02/17/17 10:00 02/18/17 09:45 Lopressor PO 25 mg Q12 AMANUEL Administration Ondansetron HCl 4 mg 02/16/17 22:58 Zofran Inj IVP Q6H PRN Nausea/Vomiting Pantoprazole Sodium 40 mg 02/17/17 06:30 02/18/17 08:18 Protonix Ec Tab PO 40 mg 0630 AMANUEL Administration Sertraline HCl 50 mg 02/17/17 10:00 02/18/17 09:44 Zoloft PO 50 mg DAILY AMANUEL Administration Tramadol HCl 50 mg 02/17/17 13:52 02/17/17 21:06 Ultram PO 50 mg TID PRN Administration Pain, moderate (4-7) - Patient Studies Lab Studies: Microbiology Studies 02/17/17 00:15 Blood Culture - Preliminary Blood-Venous NO GROWTH AFTER 24 HOURS 02/16/17 23:39 Blood Culture - Preliminary Blood-Venous NO GROWTH AFTER 24 HOURS 02/17/17 11:40 Gram Stain - Final Other: Please Indicate 02/17/17 11:40 Gram Stain - Final Other: Please Indicate 02/17/17 11:40 Gram Stain - Final Other: Please Indicate 02/17/17 11:40 Gram Stain - Final Other: Please Indicate Lab Studies 02/18/17 02/18/17 02/18/17 Range/Units 07:39 06:00 06:00 WBC 10.9 (4.5-11.0) 10^3/ul RBC 2.65 L (3.5-6.1) 10^6/uL Hgb 7.6 L (12.0-16.0) gm/dL Hct 23.7 L (36.0-48.0) % MCV 89.4 (80.0-105.0) fL MCH 28.7 (25.0-35.0) pg MCHC 32.1 (31.0-37.0) g/dl RDW 17.8 H (11.5-14.5) % Plt Count 346 (120.0-450.0) 10^3/uL MPV 8.6 (7.0-11.0) fl Gran % (50.0-68.0) % Lymph % (Auto) (22.0-35.0) % [place] % (Auto) (1.0-6.0) % Eos % (Auto) (1.5-5.0) % Baso % (Auto) (0.0-3.0) % Gran # (1.4-6.5) Lymph # (1.2-3.4) [place] # (0.1-0.6) Eos # (0.0-0.7) Baso # (0.0-2.0) K/mm3 Neutrophils % (Manual) 90 H (50.0-70.0) % Band Neutrophils % 1 (0-2) % Lymphocytes % (Manual) 5 L (22.0-35.0) % Monocytes % (Manual) 4 (1.0-6.0) % Platelet Evaluation Normal (NORMAL) Polychromasia Slight Hypochromasia 2+ Poikilocytosis (manual Slight Anisocytosis (manual) 2+ Ovalocytes Slight [place] Cells Slight pO2 (30-55) mm/Hg VBG pH (7.32-7.43) VBG pCO2 (40-60) VBG HCO3 (21-28) mmol/l VBG Total CO2 (22-28) mmol.L VBG O2 Sat (Calc) (40-65) % VBG Base Excess (0.0-2.0) mmol/L VBG Potassium (3.6-5.2) mmol/L Sodium 143 (132-148) mmol/L Chloride 116 H (98-107) mmol/L Glucose (65-105) mg/dl Lactate (0.7-2.1) mmol/L FiO2 % Potassium 3.7 (3.6-5.0) mmol/L Carbon Dioxide 16 L (21-33) mmol/L Anion Gap 15 (10-20) BUN 13 (7-21) mg/dL Creatinine 0.6 (0.5-1.4) mg/dL Est GFR ( Amer) > 60 Est GFR (Non-Af Amer) > 60 POC Glucose (mg/dL) 254 H (65-110) mg/dL Random Glucose 214 H (70-110) mg/dL Serum Osmolality (271-296) mosm/kg Calcium 7.5 L (8.4-10.5) mg/dL Phosphorus 2.8 (2.5-4.5) mg/dL Magnesium 1.7 (1.7-2.2) mg/dL Total Bilirubin 0.8 (0.2-1.3) mg/dL AST 345 H (15-39) U/L ALT 106 H (7-56) U/L Alkaline Phosphatase 178 H (38-133) U/L Lactate Dehydrogenase 2753 H (333-699) U/L Total Creatine Kinase 322 H (35-230) U/L CK-MB (CK-2) 28.7 H (0.0-3.6) ng/mL CK-MB (CK-2) % 8.9 H (2.5-3.0) % Troponin I 3.76 H* ng/mL NT-Pro-B Natriuret Pep (0-450) pg/mL Total Protein 5.0 L (5.8-8.3) g/dL Albumin 2.1 L (3.0-4.8) g/dL Globulin 2.9 gm/dL Albumin/Globulin Ratio 0.7 L (1.1-1.8) Free T4 (0.78-2.19) ng/dL TSH 3rd Generation (0.46-4.68) mIU/mL Venous Blood Potassium (3.6-5.2) mmol/L Urine Osmolality (50-645) mosm/kg Stool Occult Blood (NEGATIVE) 02/18/17 02/18/17 02/18/17 Range/Units 01:50 01:10 00:47 WBC (4.5-11.0) 10^3/ul RBC (3.5-6.1) 10^6/uL Hgb (12.0-16.0) gm/dL Hct (36.0-48.0) % MCV (80.0-105.0) fL MCH (25.0-35.0) pg MCHC (31.0-37.0) g/dl RDW (11.5-14.5) % Plt Count (120.0-450.0) 10^3/uL MPV (7.0-11.0) fl Gran % (50.0-68.0) % Lymph % (Auto) (22.0-35.0) % [place] % (Auto) (1.0-6.0) % Eos % (Auto) (1.5-5.0) % Baso % (Auto) (0.0-3.0) % Gran # (1.4-6.5) Lymph # (1.2-3.4) [place] # (0.1-0.6) Eos # (0.0-0.7) Baso # (0.0-2.0) K/mm3 Neutrophils % (Manual) (50.0-70.0) % Band Neutrophils % (0-2) % Lymphocytes % (Manual) (22.0-35.0) % Monocytes % (Manual) (1.0-6.0) % Platelet Evaluation (NORMAL) Polychromasia Hypochromasia Poikilocytosis (manual Anisocytosis (manual) Ovalocytes [place] Cells pO2 52 (30-55) mm/Hg VBG pH 7.30 L (7.32-7.43) VBG pCO2 33.0 L (40-60) VBG HCO3 16.2 L (21-28) mmol/l VBG Total CO2 17.2 L (22-28) mmol.L VBG O2 Sat (Calc) 84.9 H (40-65) % VBG Base Excess -9.2 L (0.0-2.0) mmol/L VBG Potassium 3.9 (3.6-5.2) mmol/L Sodium 144.0 142 (132-148) mmol/L Chloride 117.0 H 114 H (98-107) mmol/L Glucose 223 H (65-105) mg/dl Lactate 3.2 H (0.7-2.1) mmol/L FiO2 21.0 % Potassium 3.7 (3.6-5.0) mmol/L Carbon Dioxide 17 L (21-33) mmol/L Anion Gap 15 (10-20) BUN 12 (7-21) mg/dL Creatinine 0.6 (0.5-1.4) mg/dL Est GFR ( Amer) > 60 Est GFR (Non-Af Amer) > 60 POC Glucose (mg/dL) 184 H (65-110) mg/dL Random Glucose 195 H (70-110) mg/dL Serum Osmolality (271-296) mosm/kg Calcium 7.6 L (8.4-10.5) mg/dL Phosphorus (2.5-4.5) mg/dL Magnesium (1.7-2.2) mg/dL Total Bilirubin (0.2-1.3) mg/dL AST (15-39) U/L ALT (7-56) U/L Alkaline Phosphatase (38-133) U/L Lactate Dehydrogenase 1425 H (333-699) U/L Total Creatine Kinase 350 H (35-230) U/L CK-MB (CK-2) 29.5 H (0.0-3.6) ng/mL CK-MB (CK-2) % 8.4 H (2.5-3.0) % Troponin I 4.35 H* ng/mL NT-Pro-B Natriuret Pep (0-450) pg/mL Total Protein (5.8-8.3) g/dL Albumin (3.0-4.8) g/dL Globulin gm/dL Albumin/Globulin Ratio (1.1-1.8) Free T4 (0.78-2.19) ng/dL TSH 3rd Generation (0.46-4.68) mIU/mL Venous Blood Potassium 3.9 (3.6-5.2) mmol/L Urine Osmolality (50-645) mosm/kg Stool Occult Blood (NEGATIVE) 02/18/17 02/17/17 02/17/17 Range/Units 00:30 22:00 21:36 WBC (4.5-11.0) 10^3/ul RBC (3.5-6.1) 10^6/uL Hgb (12.0-16.0) gm/dL Hct (36.0-48.0) % MCV (80.0-105.0) fL MCH (25.0-35.0) pg MCHC (31.0-37.0) g/dl RDW (11.5-14.5) % Plt Count (120.0-450.0) 10^3/uL MPV (7.0-11.0) fl Gran % (50.0-68.0) % Lymph % (Auto) (22.0-35.0) % [place] % (Auto) (1.0-6.0) % Eos % (Auto) (1.5-5.0) % Baso % (Auto) (0.0-3.0) % Gran # (1.4-6.5) Lymph # (1.2-3.4) [place] # (0.1-0.6) Eos # (0.0-0.7) Baso # (0.0-2.0) K/mm3 Neutrophils % (Manual) (50.0-70.0) % Band Neutrophils % (0-2) % Lymphocytes % (Manual) (22.0-35.0) % Monocytes % (Manual) (1.0-6.0) % Platelet Evaluation (NORMAL) Polychromasia Hypochromasia Poikilocytosis (manual Anisocytosis (manual) Ovalocytes [place] Cells pO2 70 H (30-55) mm/Hg VBG pH 7.31 L (7.32-7.43) VBG pCO2 36.0 L (40-60) VBG HCO3 18.1 L (21-28) mmol/l VBG Total CO2 19.2 L (22-28) mmol.L VBG O2 Sat (Calc) 95.8 H (40-65) % VBG Base Excess -7.4 L (0.0-2.0) mmol/L VBG Potassium 3.6 (3.6-5.2) mmol/L Sodium 144.0 (132-148) mmol/L Chloride 117.0 H (98-107) mmol/L Glucose 180 H (65-105) mg/dl Lactate 2.3 H (0.7-2.1) mmol/L FiO2 21.0 % Potassium (3.6-5.0) mmol/L Carbon Dioxide (21-33) mmol/L Anion Gap (10-20) BUN (7-21) mg/dL Creatinine (0.5-1.4) mg/dL Est GFR ( Amer) Est GFR (Non-Af Amer) POC Glucose (mg/dL) 194 H (65-110) mg/dL Random Glucose (70-110) mg/dL Serum Osmolality (271-296) mosm/kg Calcium (8.4-10.5) mg/dL Phosphorus (2.5-4.5) mg/dL Magnesium (1.7-2.2) mg/dL Total Bilirubin (0.2-1.3) mg/dL AST (15-39) U/L ALT (7-56) U/L Alkaline Phosphatase (38-133) U/L Lactate Dehydrogenase (333-699) U/L Total Creatine Kinase (35-230) U/L CK-MB (CK-2) (0.0-3.6) ng/mL CK-MB (CK-2) % (2.5-3.0) % Troponin I ng/mL NT-Pro-B Natriuret Pep (0-450) pg/mL Total Protein (5.8-8.3) g/dL Albumin (3.0-4.8) g/dL Globulin gm/dL Albumin/Globulin Ratio (1.1-1.8) Free T4 (0.78-2.19) ng/dL TSH 3rd Generation (0.46-4.68) mIU/mL Venous Blood Potassium 3.6 (3.6-5.2) mmol/L Urine Osmolality (50-645) mosm/kg Stool Occult Blood Negative (NEGATIVE) 02/17/17 02/17/17 02/17/17 Range/Units 17:20 17:20 16:03 WBC (4.5-11.0) 10^3/ul RBC (3.5-6.1) 10^6/uL Hgb (12.0-16.0) gm/dL Hct (36.0-48.0) % MCV (80.0-105.0) fL MCH (25.0-35.0) pg MCHC (31.0-37.0) g/dl RDW (11.5-14.5) % Plt Count (120.0-450.0) 10^3/uL MPV (7.0-11.0) fl Gran % (50.0-68.0) % Lymph % (Auto) (22.0-35.0) % [place] % (Auto) (1.0-6.0) % Eos % (Auto) (1.5-5.0) % Baso % (Auto) (0.0-3.0) % Gran # (1.4-6.5) Lymph # (1.2-3.4) [place] # (0.1-0.6) Eos # (0.0-0.7) Baso # (0.0-2.0) K/mm3 Neutrophils % (Manual) (50.0-70.0) % Band Neutrophils % (0-2) % Lymphocytes % (Manual) (22.0-35.0) % Monocytes % (Manual) (1.0-6.0) % Platelet Evaluation (NORMAL) Polychromasia Hypochromasia Poikilocytosis (manual Anisocytosis (manual) Ovalocytes [place] Cells pO2 58 H (30-55) mm/Hg VBG pH 7.32 (7.32-7.43) VBG pCO2 41.0 (40-60) VBG HCO3 21.1 (21-28) mmol/l VBG Total CO2 22.4 (22-28) mmol.L VBG O2 Sat (Calc) 91.1 H (40-65) % VBG Base Excess -4.8 L (0.0-2.0) mmol/L VBG Potassium 3.6 (3.6-5.2) mmol/L Sodium 144.0 141 (132-148) mmol/L Chloride 115.0 H 112 H (98-107) mmol/L Glucose 172 H (65-105) mg/dl Lactate 2.4 H (0.7-2.1) mmol/L FiO2 21.0 % Potassium 3.7 (3.6-5.0) mmol/L Carbon Dioxide 21 (21-33) mmol/L Anion Gap 12 (10-20) BUN 11 (7-21) mg/dL Creatinine 0.6 (0.5-1.4) mg/dL Est GFR ( Amer) > 60 Est GFR (Non-Af Amer) > 60 POC Glucose (mg/dL) 145 H (65-110) mg/dL Random Glucose 159 H (70-110) mg/dL Serum Osmolality (271-296) mosm/kg Calcium 7.7 L (8.4-10.5) mg/dL Phosphorus (2.5-4.5) mg/dL Magnesium (1.7-2.2) mg/dL Total Bilirubin (0.2-1.3) mg/dL AST (15-39) U/L ALT (7-56) U/L Alkaline Phosphatase (38-133) U/L Lactate Dehydrogenase 1009 H (333-699) U/L Total Creatine Kinase 358 H (35-230) U/L CK-MB (CK-2) 28.0 H (0.0-3.6) ng/mL CK-MB (CK-2) % 7.8 H (2.5-3.0) % Troponin I 4.50 H* ng/mL NT-Pro-B Natriuret Pep (0-450) pg/mL Total Protein (5.8-8.3) g/dL Albumin (3.0-4.8) g/dL Globulin gm/dL Albumin/Globulin Ratio (1.1-1.8) Free T4 (0.78-2.19) ng/dL TSH 3rd Generation (0.46-4.68) mIU/mL Venous Blood Potassium 3.6 (3.6-5.2) mmol/L Urine Osmolality (50-645) mosm/kg Stool Occult Blood (NEGATIVE) 02/17/17 02/17/17 02/17/17 Range/Units 11:36 10:55 10:55 WBC 10.3 (4.5-11.0) 10^3/ul RBC 3.16 L (3.5-6.1) 10^6/uL Hgb 8.9 L (12.0-16.0) gm/dL Hct 27.9 L (36.0-48.0) % MCV 88.3 (80.0-105.0) fL MCH 28.2 (25.0-35.0) pg MCHC 31.9 (31.0-37.0) g/dl RDW 16.7 H (11.5-14.5) % Plt Count 393 (120.0-450.0) 10^3/uL MPV 8.8 (7.0-11.0) fl Gran % 85.4 H (50.0-68.0) % Lymph % (Auto) 10.0 L (22.0-35.0) % [place] % (Auto) 4.6 (1.0-6.0) % Eos % (Auto) 0.0 L (1.5-5.0) % Baso % (Auto) 0.0 (0.0-3.0) % Gran # 8.79 H (1.4-6.5) Lymph # 1.0 L (1.2-3.4) [place] # 0.5 (0.1-0.6) Eos # 0.0 (0.0-0.7) Baso # 0.00 (0.0-2.0) K/mm3 Neutrophils % (Manual) (50.0-70.0) % Band Neutrophils % (0-2) % Lymphocytes % (Manual) (22.0-35.0) % Monocytes % (Manual) (1.0-6.0) % Platelet Evaluation (NORMAL) Polychromasia Hypochromasia Poikilocytosis (manual Anisocytosis (manual) Ovalocytes [place] Cells pO2 (30-55) mm/Hg VBG pH (7.32-7.43) VBG pCO2 (40-60) VBG HCO3 (21-28) mmol/l VBG Total CO2 (22-28) mmol.L VBG O2 Sat (Calc) (40-65) % VBG Base Excess (0.0-2.0) mmol/L VBG Potassium (3.6-5.2) mmol/L Sodium 141 (132-148) mmol/L Chloride 107 (98-107) mmol/L Glucose (65-105) mg/dl Lactate (0.7-2.1) mmol/L FiO2 % Potassium 2.6 L* (3.6-5.0) mmol/L Carbon Dioxide 23 (21-33) mmol/L Anion Gap 14 (10-20) BUN 10 (7-21) mg/dL Creatinine 0.7 (0.5-1.4) mg/dL Est GFR ( Amer) > 60 Est GFR (Non-Af Amer) > 60 POC Glucose (mg/dL) 143 H (65-110) mg/dL Random Glucose 172 H (70-110) mg/dL Serum Osmolality (271-296) mosm/kg Calcium 8.1 L (8.4-10.5) mg/dL Phosphorus (2.5-4.5) mg/dL Magnesium 2.0 (1.7-2.2) mg/dL Total Bilirubin 0.6 (0.2-1.3) mg/dL AST 88 H (15-39) U/L ALT 30 (7-56) U/L Alkaline Phosphatase 68 (38-133) U/L Lactate Dehydrogenase (333-699) U/L Total Creatine Kinase (35-230) U/L CK-MB (CK-2) (0.0-3.6) ng/mL CK-MB (CK-2) % (2.5-3.0) % Troponin I 5.21 H* D ng/mL NT-Pro-B Natriuret Pep 5610 H (0-450) pg/mL Total Protein 5.7 L (5.8-8.3) g/dL Albumin 2.5 L (3.0-4.8) g/dL Globulin 3.2 gm/dL Albumin/Globulin Ratio 0.8 L (1.1-1.8) Free T4 (0.78-2.19) ng/dL TSH 3rd Generation (0.46-4.68) mIU/mL Venous Blood Potassium (3.6-5.2) mmol/L Urine Osmolality (50-645) mosm/kg Stool Occult Blood (NEGATIVE) 02/17/17 02/17/17 02/17/17 Range/Units 10:55 10:55 10:55 WBC (4.5-11.0) 10^3/ul RBC (3.5-6.1) 10^6/uL Hgb (12.0-16.0) gm/dL Hct (36.0-48.0) % MCV (80.0-105.0) fL MCH (25.0-35.0) pg MCHC (31.0-37.0) g/dl RDW (11.5-14.5) % Plt Count (120.0-450.0) 10^3/uL MPV (7.0-11.0) fl Gran % (50.0-68.0) % Lymph % (Auto) (22.0-35.0) % [place] % (Auto) (1.0-6.0) % Eos % (Auto) (1.5-5.0) % Baso % (Auto) (0.0-3.0) % Gran # (1.4-6.5) Lymph # (1.2-3.4) [place] # (0.1-0.6) Eos # (0.0-0.7) Baso # (0.0-2.0) K/mm3 Neutrophils % (Manual) (50.0-70.0) % Band Neutrophils % (0-2) % Lymphocytes % (Manual) (22.0-35.0) % Monocytes % (Manual) (1.0-6.0) % Platelet Evaluation (NORMAL) Polychromasia Hypochromasia Poikilocytosis (manual Anisocytosis (manual) Ovalocytes [place] Cells pO2 41 (30-55) mm/Hg VBG pH 7.36 (7.32-7.43) VBG pCO2 40.0 (40-60) VBG HCO3 22.6 (21-28) mmol/l VBG Total CO2 23.8 (22-28) mmol.L VBG O2 Sat (Calc) 75.7 H (40-65) % VBG Base Excess -2.7 L (0.0-2.0) mmol/L VBG Potassium 2.6 L (3.6-5.2) mmol/L Sodium 143.0 (132-148) mmol/L Chloride 109.0 H (98-107) mmol/L Glucose 186 H (65-105) mg/dl Lactate 2.5 H (0.7-2.1) mmol/L FiO2 21.0 % Potassium (3.6-5.0) mmol/L Carbon Dioxide (21-33) mmol/L Anion Gap (10-20) BUN (7-21) mg/dL Creatinine (0.5-1.4) mg/dL Est GFR ( Amer) Est GFR (Non-Af Amer) POC Glucose (mg/dL) (65-110) mg/dL Random Glucose (70-110) mg/dL Serum Osmolality 299 H (271-296) mosm/kg Calcium (8.4-10.5) mg/dL Phosphorus (2.5-4.5) mg/dL Magnesium (1.7-2.2) mg/dL Total Bilirubin (0.2-1.3) mg/dL AST (15-39) U/L ALT (7-56) U/L Alkaline Phosphatase (38-133) U/L Lactate Dehydrogenase (333-699) U/L Total Creatine Kinase (35-230) U/L CK-MB (CK-2) (0.0-3.6) ng/mL CK-MB (CK-2) % (2.5-3.0) % Troponin I ng/mL NT-Pro-B Natriuret Pep (0-450) pg/mL Total Protein (5.8-8.3) g/dL Albumin (3.0-4.8) g/dL Globulin gm/dL Albumin/Globulin Ratio (1.1-1.8) Free T4 2.68 H (0.78-2.19) ng/dL TSH 3rd Generation 0.98 (0.46-4.68) mIU/mL Venous Blood Potassium 2.6 L (3.6-5.2) mmol/L Urine Osmolality (50-645) mosm/kg Stool Occult Blood (NEGATIVE) 02/17/17 02/17/17 Range/Units 08:40 07:57 WBC (4.5-11.0) 10^3/ul RBC (3.5-6.1) 10^6/uL Hgb (12.0-16.0) gm/dL Hct (36.0-48.0) % MCV (80.0-105.0) fL MCH (25.0-35.0) pg MCHC (31.0-37.0) g/dl RDW (11.5-14.5) % Plt Count (120.0-450.0) 10^3/uL MPV (7.0-11.0) fl Gran % (50.0-68.0) % Lymph % (Auto) (22.0-35.0) % [place] % (Auto) (1.0-6.0) % Eos % (Auto) (1.5-5.0) % Baso % (Auto) (0.0-3.0) % Gran # (1.4-6.5) Lymph # (1.2-3.4) [place] # (0.1-0.6) Eos # (0.0-0.7) Baso # (0.0-2.0) K/mm3 Neutrophils % (Manual) (50.0-70.0) % Band Neutrophils % (0-2) % Lymphocytes % (Manual) (22.0-35.0) % Monocytes % (Manual) (1.0-6.0) % Platelet Evaluation (NORMAL) Polychromasia Hypochromasia Poikilocytosis (manual Anisocytosis (manual) Ovalocytes [place] Cells pO2 (30-55) mm/Hg VBG pH (7.32-7.43) VBG pCO2 (40-60) VBG HCO3 (21-28) mmol/l VBG Total CO2 (22-28) mmol.L VBG O2 Sat (Calc) (40-65) % VBG Base Excess (0.0-2.0) mmol/L VBG Potassium (3.6-5.2) mmol/L Sodium (132-148) mmol/L Chloride (98-107) mmol/L Glucose (65-105) mg/dl Lactate (0.7-2.1) mmol/L FiO2 % Potassium (3.6-5.0) mmol/L Carbon Dioxide (21-33) mmol/L Anion Gap (10-20) BUN (7-21) mg/dL Creatinine (0.5-1.4) mg/dL Est GFR ( Amer) Est GFR (Non-Af Amer) POC Glucose (mg/dL) 196 H (65-110) mg/dL Random Glucose (70-110) mg/dL Serum Osmolality (271-296) mosm/kg Calcium (8.4-10.5) mg/dL Phosphorus (2.5-4.5) mg/dL Magnesium (1.7-2.2) mg/dL Total Bilirubin (0.2-1.3) mg/dL AST (15-39) U/L ALT (7-56) U/L Alkaline Phosphatase (38-133) U/L Lactate Dehydrogenase (333-699) U/L Total Creatine Kinase (35-230) U/L CK-MB (CK-2) (0.0-3.6) ng/mL CK-MB (CK-2) % (2.5-3.0) % Troponin I ng/mL NT-Pro-B Natriuret Pep (0-450) pg/mL Total Protein (5.8-8.3) g/dL Albumin (3.0-4.8) g/dL Globulin gm/dL Albumin/Globulin Ratio (1.1-1.8) Free T4 (0.78-2.19) ng/dL TSH 3rd Generation (0.46-4.68) mIU/mL Venous Blood Potassium (3.6-5.2) mmol/L Urine Osmolality 356 (50-645) mosm/kg Stool Occult Blood (NEGATIVE) Laboratory Results - last 24 hr 02/17/17 02/17/17 02/17/17 07:57 08:40 10:55 WBC RBC Hgb Hct MCV MCH MCHC RDW Plt Count MPV Gran % Lymph % (Auto) [place] % (Auto) Eos % (Auto) Baso % (Auto) Gran # Lymph # [place] # Eos # Baso # Neutrophils % (Manual) Band Neutrophils % Lymphocytes % (Manual) Monocytes % (Manual) Platelet Evaluation Polychromasia Hypochromasia Poikilocytosis (manual Anisocytosis (manual) Ovalocytes [place] Cells pO2 41 VBG pH 7.36 VBG pCO2 40.0 VBG HCO3 22.6 VBG Total CO2 23.8 VBG O2 Sat (Calc) 75.7 H VBG Base Excess -2.7 L VBG Potassium 2.6 L Sodium 143.0 Chloride 109.0 H Glucose 186 H Lactate 2.5 H FiO2 21.0 Potassium Carbon Dioxide Anion Gap BUN Creatinine Est GFR ( Amer) Est GFR (Non-Af Amer) POC Glucose (mg/dL) 196 H Random Glucose Serum Osmolality Calcium Phosphorus Magnesium Total Bilirubin AST ALT Alkaline Phosphatase Lactate Dehydrogenase Total Creatine Kinase CK-MB (CK-2) CK-MB (CK-2) % Troponin I NT-Pro-B Natriuret Pep Total Protein Albumin Globulin Albumin/Globulin Ratio Free T4 TSH 3rd Generation Venous Blood Potassium 2.6 L Urine Osmolality 356 Stool Occult Blood 02/17/17 02/17/17 02/17/17 10:55 10:55 10:55 WBC 10.3 RBC 3.16 L Hgb 8.9 L Hct 27.9 L MCV 88.3 MCH 28.2 MCHC 31.9 RDW 16.7 H Plt Count 393 MPV 8.8 Gran % 85.4 H Lymph % (Auto) 10.0 L [place] % (Auto) 4.6 Eos % (Auto) 0.0 L Baso % (Auto) 0.0 Gran # 8.79 H Lymph # 1.0 L [place] # 0.5 Eos # 0.0 Baso # 0.00 Neutrophils % (Manual) Band Neutrophils % Lymphocytes % (Manual) Monocytes % (Manual) Platelet Evaluation Polychromasia Hypochromasia Poikilocytosis (manual Anisocytosis (manual) Ovalocytes [place] Cells pO2 VBG pH VBG pCO2 VBG HCO3 VBG Total CO2 VBG O2 Sat (Calc) VBG Base Excess VBG Potassium Sodium Chloride Glucose Lactate FiO2 Potassium Carbon Dioxide Anion Gap BUN Creatinine Est GFR ( Amer) Est GFR (Non-Af Amer) POC Glucose (mg/dL) Random Glucose Serum Osmolality 299 H Calcium Phosphorus Magnesium Total Bilirubin AST ALT Alkaline Phosphatase Lactate Dehydrogenase Total Creatine Kinase CK-MB (CK-2) CK-MB (CK-2) % Troponin I NT-Pro-B Natriuret Pep Total Protein Albumin Globulin Albumin/Globulin Ratio Free T4 2.68 H TSH 3rd Generation 0.98 Venous Blood Potassium Urine Osmolality Stool Occult Blood 02/17/17 02/17/17 02/17/17 10:55 11:36 16:03 WBC RBC Hgb Hct MCV MCH MCHC RDW Plt Count MPV Gran % Lymph % (Auto) [place] % (Auto) Eos % (Auto) Baso % (Auto) Gran # Lymph # [place] # Eos # Baso # Neutrophils % (Manual) Band Neutrophils % Lymphocytes % (Manual) Monocytes % (Manual) Platelet Evaluation Polychromasia Hypochromasia Poikilocytosis (manual Anisocytosis (manual) Ovalocytes [place] Cells pO2 VBG pH VBG pCO2 VBG HCO3 VBG Total CO2 VBG O2 Sat (Calc) VBG Base Excess VBG Potassium Sodium 141 Chloride 107 Glucose Lactate FiO2 Potassium 2.6 L* Carbon Dioxide 23 Anion Gap 14 BUN 10 Creatinine 0.7 Est GFR ( Amer) > 60 Est GFR (Non-Af Amer) > 60 POC Glucose (mg/dL) 143 H 145 H Random Glucose 172 H Serum Osmolality Calcium 8.1 L Phosphorus Magnesium 2.0 Total Bilirubin 0.6 AST 88 H ALT 30 Alkaline Phosphatase 68 Lactate Dehydrogenase Total Creatine Kinase CK-MB (CK-2) CK-MB (CK-2) % Troponin I 5.21 H* D NT-Pro-B Natriuret Pep 5610 H Total Protein 5.7 L Albumin 2.5 L Globulin 3.2 Albumin/Globulin Ratio 0.8 L Free T4 TSH 3rd Generation Venous Blood Potassium Urine Osmolality Stool Occult Blood 02/17/17 02/17/17 02/17/17 17:20 17:20 21:36 WBC RBC Hgb Hct MCV MCH MCHC RDW Plt Count MPV Gran % Lymph % (Auto) [place] % (Auto) Eos % (Auto) Baso % (Auto) Gran # Lymph # [place] # Eos # Baso # Neutrophils % (Manual) Band Neutrophils % Lymphocytes % (Manual) Monocytes % (Manual) Platelet Evaluation Polychromasia Hypochromasia Poikilocytosis (manual Anisocytosis (manual) Ovalocytes [place] Cells pO2 58 H VBG pH 7.32 VBG pCO2 41.0 VBG HCO3 21.1 VBG Total CO2 22.4 VBG O2 Sat (Calc) 91.1 H VBG Base Excess -4.8 L VBG Potassium 3.6 Sodium 141 144.0 Chloride 112 H 115.0 H Glucose 172 H Lactate 2.4 H FiO2 21.0 Potassium 3.7 Carbon Dioxide 21 Anion Gap 12 BUN 11 Creatinine 0.6 Est GFR ( Amer) > 60 Est GFR (Non-Af Amer) > 60 POC Glucose (mg/dL) 194 H Random Glucose 159 H Serum Osmolality Calcium 7.7 L Phosphorus Magnesium Total Bilirubin AST ALT Alkaline Phosphatase Lactate Dehydrogenase 1009 H Total Creatine Kinase 358 H CK-MB (CK-2) 28.0 H CK-MB (CK-2) % 7.8 H Troponin I 4.50 H* NT-Pro-B Natriuret Pep Total Protein Albumin Globulin Albumin/Globulin Ratio Free T4 TSH 3rd Generation Venous Blood Potassium 3.6 Urine Osmolality Stool Occult Blood 02/17/17 02/18/17 02/18/17 22:00 00:30 00:47 WBC RBC Hgb Hct MCV MCH MCHC RDW Plt Count MPV Gran % Lymph % (Auto) [place] % (Auto) Eos % (Auto) Baso % (Auto) Gran # Lymph # [place] # Eos # Baso # Neutrophils % (Manual) Band Neutrophils % Lymphocytes % (Manual) Monocytes % (Manual) Platelet Evaluation Polychromasia Hypochromasia Poikilocytosis (manual Anisocytosis (manual) Ovalocytes [place] Cells pO2 70 H VBG pH 7.31 L VBG pCO2 36.0 L VBG HCO3 18.1 L VBG Total CO2 19.2 L VBG O2 Sat (Calc) 95.8 H VBG Base Excess -7.4 L VBG Potassium 3.6 Sodium 144.0 Chloride 117.0 H Glucose 180 H Lactate 2.3 H FiO2 21.0 Potassium Carbon Dioxide Anion Gap BUN Creatinine Est GFR ( Amer) Est GFR (Non-Af Amer) POC Glucose (mg/dL) 184 H Random Glucose Serum Osmolality Calcium Phosphorus Magnesium Total Bilirubin AST ALT Alkaline Phosphatase Lactate Dehydrogenase Total Creatine Kinase CK-MB (CK-2) CK-MB (CK-2) % Troponin I NT-Pro-B Natriuret Pep Total Protein Albumin Globulin Albumin/Globulin Ratio Free T4 TSH 3rd Generation Venous Blood Potassium 3.6 Urine Osmolality Stool Occult Blood Negative 02/18/17 02/18/17 02/18/17 01:10 01:50 06:00 WBC RBC Hgb Hct MCV MCH MCHC RDW Plt Count MPV Gran % Lymph % (Auto) [place] % (Auto) Eos % (Auto) Baso % (Auto) Gran # Lymph # [place] # Eos # Baso # Neutrophils % (Manual) Band Neutrophils % Lymphocytes % (Manual) Monocytes % (Manual) Platelet Evaluation Polychromasia Hypochromasia Poikilocytosis (manual Anisocytosis (manual) Ovalocytes Jonathan Cells pO2 52 VBG pH 7.30 L VBG pCO2 33.0 L VBG HCO3 16.2 L VBG Total CO2 17.2 L VBG O2 Sat (Calc) 84.9 H VBG Base Excess -9.2 L VBG Potassium 3.9 Sodium 142 144.0 143 Chloride 114 H 117.0 H 116 H Glucose 223 H Lactate 3.2 H FiO2 21.0 Potassium 3.7 3.7 Carbon Dioxide 17 L 16 L Anion Gap 15 15 BUN 12 13 Creatinine 0.6 0.6 Est GFR ( Amer) > 60 > 60 Est GFR (Non-Af Amer) > 60 > 60 POC Glucose (mg/dL) Random Glucose 195 H 214 H Serum Osmolality Calcium 7.6 L 7.5 L Phosphorus 2.8 Magnesium 1.7 Total Bilirubin 0.8 AST 345 H ALT 106 H Alkaline Phosphatase 178 H Lactate Dehydrogenase 1425 H 2753 H Total Creatine Kinase 350 H 322 H CK-MB (CK-2) 29.5 H 28.7 H CK-MB (CK-2) % 8.4 H 8.9 H Troponin I 4.35 H* 3.76 H* NT-Pro-B Natriuret Pep Total Protein 5.0 L Albumin 2.1 L Globulin 2.9 Albumin/Globulin Ratio 0.7 L Free T4 TSH 3rd Generation Venous Blood Potassium 3.9 Urine Osmolality Stool Occult Blood 02/18/17 02/18/17 06:00 07:39 WBC 10.9 RBC 2.65 L Hgb 7.6 L Hct 23.7 L MCV 89.4 MCH 28.7 MCHC 32.1 RDW 17.8 H Plt Count 346 MPV 8.6 Gran % Lymph % (Auto) [place] % (Auto) Eos % (Auto) Baso % (Auto) Gran # Lymph # [place] # Eos # Baso # Neutrophils % (Manual) 90 H Band Neutrophils % 1 Lymphocytes % (Manual) 5 L Monocytes % (Manual) 4 Platelet Evaluation Normal Polychromasia Slight Hypochromasia 2+ Poikilocytosis (manual Slight Anisocytosis (manual) 2+ Ovalocytes Slight Jonathan Cells Slight pO2 VBG pH VBG pCO2 VBG HCO3 VBG Total CO2 VBG O2 Sat (Calc) VBG Base Excess VBG Potassium Sodium Chloride Glucose Lactate FiO2 Potassium Carbon Dioxide Anion Gap BUN Creatinine Est GFR ( Amer) Est GFR (Non-Af Amer) POC Glucose (mg/dL) 254 H Random Glucose Serum Osmolality Calcium Phosphorus Magnesium Total Bilirubin AST ALT Alkaline Phosphatase Lactate Dehydrogenase Total Creatine Kinase CK-MB (CK-2) CK-MB (CK-2) % Troponin I NT-Pro-B Natriuret Pep Total Protein Albumin Globulin Albumin/Globulin Ratio Free T4 TSH 3rd Generation Venous Blood Potassium Urine Osmolality Stool Occult Blood EKG/Cardiology Studies: Cardiology / EKG Studies 02/17/17 09:35 EKG [ELECTROCARDIOGRAM] Stat Comment: Reason For Exam: elevated trop 02/17/17 11:56 ELECTROCARDIOGRAM Stat Comment: Reason For Exam: troponin increasing 02/17/17 18:15 EKG [ELECTROCARDIOGRAM] DAILY Comment: Reason For Exam: NSTEMI Fingerstick Blood Sugar Results: 254 Review of Systems - Review of Systems Systems not reviewed;Unavailable: Altered Mental Status Critical Care Progress Note - Ventilator Checklist Head of Bed 30 Degrees: Yes Daily Sedation Vacation: Yes PUD Prophalyxis: Yes DVT Prophylaxis: Yes - Nutrition Nutrition: Nutrition Category Date Time Status NPO Diet [DIET] Diets 02/17/17 Lunch Ordered Assessment/Plan - Assessment and Plan (Free Text) Assessment: 81 y/o F w/ MODS w/ Septic shock Septic shock Secondary to multiple decubitus ulcers and Lower ext gangrene / possible OSTEO. On empiric abx w/ Meropenum and Vancomycin. CX pending. Gen Surgery and Podiatry following the patient in case of emergent surgery, although patient's daughter does not want surgery and wants conservative measures. IV fluids continued and Levophed to keep MAP>65. NSTEMI on Lovenox, likely type 2 in the setting of sepsis. Cardiology aware but no aggressive measures as of yet. TUBE feeds continued DVT p w/ Heparin although HGB 7.6 and Jehovah's. IROn needed Family and PCP aware Poor prognosis cc time 65 min
[2017-02-18 10:48] LABS: CHLORIDE URINE 129 mmol/L (32-290)
--- NOTE | 2017-02-18 11:06 | RAD ---
PROCEDURE: Right Foot Radiographs. HISTORY: rule out gangrene COMPARISON: Right foot radiographs performed 02/20/13 FINDINGS: Suboptimal lateral view due to motion. BONES: Status post amputation at the level of the distal 2nd and 3rd metatarsals. Degenerative changes evident particularly at the 1st MTP joint. No acute displaced fracture. JOINTS: No dislocation. SOFT TISSUES: Probable subcutaneous emphysema at the level of the distal 1st digit. Soft tissue swelling. No evidence of radiopaque foreign body. Dense vascular calcifications. OTHER FINDINGS: None. IMPRESSION: Limited study. Probable subcutaneous emphysema at the level of the distal 1st digit. Soft tissue swelling. Status post amputation at the level of the 2nd and 3rd metatarsals. Degenerative changes. Please note that MRI without and with IV contrast is most sensitive study in detection of acute osteomyelitis.
[2017-02-18 12:21] LABS: BLOOD UREA NITROGEN 13 mg/dL (7-21); CARBON DIOXIDE 18 mmol/L (21-33); CHLORIDE 118 mmol/L (98-107); GFR AFRICAN-AMERICAN > 60; GLUCOSE,RANDOM 165 mg/dL (70-110); MAGNESIUM 2.2 mg/dL (1.7-2.2); PHOSPHOROUS 2.4 mg/dL (2.5-4.5); POTASSIUM 3.9 mmol/L (3.6-5.0); SODIUM 147 mmol/L (132-148)
[2017-02-18 12:26] LABS: INR 1.71 (0.93-1.08); PARTIAL THROMBOPLASTIN TIME 50.5 Seconds (23.7-30.8)
[2017-02-18 12:28] LABS: VENOUS BLOOD PH 7.25 (7.32-7.43)
[2017-02-18 12:32] LABS: CALCIUM 6.7 mg/dL (8.4-10.5)
[2017-02-18] MEDS ORDERED: Sodium Chloride 0.9% 2,000 ML IV STA (12:37)
[2017-02-18] MEDS: Vancomycin 750mg 750 MG/250 ML BAG IVPB SCH ×2 (12:48→22:21)
--- NOTE | 2017-02-18 13:06 | CP.PCM.PN ---
Subjective - Date & Time of Evaluation Date of Evaluation: 02/18/17 Time of Evaluation: 10:40 - Subjective Subjective: Comfortable in bed, afebrile, not in distress. Objective - Vital Signs/Intake and Output Vital Signs (last 24 hours): Temp Pulse Resp BP Pulse Ox 98.6 F 77 17 118/59 L 94 L 02/17/17 20:00 02/18/17 05:00 02/18/17 05:00 02/18/17 05:00 02/18/17 05:00 Intake and Output: 02/18/17 02/18/17 06:59 18:59 Intake Total 3101.5 Output Total 200 Balance 2901.5 - Medications Medications: Current Medications Acetaminophen (Tylenol 325mg Tab) 650 mg PO Q6H PRN PRN Reason: Fever >100.4 F Amiodarone HCl (Cordarone) 200 mg PO DAILY [facility] Last Admin: 02/17/17 11:53 Dose: 200 mg Aspirin (Aspirin Chewable) 81 mg PO DAILY [facility] Last Admin: 02/17/17 11:53 Dose: 81 mg Atorvastatin Calcium (Lipitor) 10 mg PO DIN [facility] Last Admin: 02/17/17 17:43 Dose: 10 mg Collagenase (Santyl) 0 gm TOP DAILY [facility] Last Admin: 02/17/17 10:14 Dose: 1 applic Enoxaparin Sodium (Lovenox) 50 mg SC Q12H [facility] PRN Reason: Protocol Last Admin: 02/17/17 21:16 Dose: 50 mg Folic Acid (Folic Acid) 1 mg PO DAILY [facility] Last Admin: 02/17/17 11:52 Dose: 1 mg Vancomycin HCl (Vancomycin 750 Mg In Ns) 750 mg in 250 mls @ 167 mls/hr IVPB Q12H [facility] PRN Reason: Protocol Last Admin: 02/17/17 23:43 Dose: 167 mls/hr Sodium Chloride (Sodium Chloride 0.9%) 1,000 mls @ 100 mls/hr IV .Q10H [facility] Last Admin: 02/18/17 04:13 Dose: 100 mls/hr NOREPINEPHRINE BIT/0.9 % NACL (Levophed 4 Mg/ 250 Ml Ns Premixed) 4 mg in 250 mls @ 15 mls/hr IV .[id number] PRN; Protocol; 4 MCG/MIN PRN Reason: TITRATE PER MD ORDER Last Titration: 02/18/17 06:38 Dose: 8 mcg/min, 30 mls/hr Meropenem 1g/NS 100mL IVPB (Meropenem 1g/Ns 100ml Ivpb) 1 gm in 100 mls @ 100 mls/hr IVPB Q8 [facility] PRN Reason: Protocol Stop: 02/24/17 06:16 Last Admin: 02/18/17 05:25 Dose: 100 mls/hr Sodium Chloride (Sodium Chloride 0.9%) 1,000 mls @ 999 mls/hr IV .Q1H1M STA Stop: 02/18/17 08:30 Last Admin: 02/18/17 07:38 Dose: 999 mls/hr Insulin Human Lispro (Humalog Low) 0 units SC ACHS [facility] PRN Reason: Protocol Last Admin: 02/17/17 22:26 Dose: Not Given Metoprolol Tartrate (Lopressor) 25 mg PO Q12 [facility] Last Admin: 02/17/17 21:28 Dose: Not Given Ondansetron HCl (Zofran Inj) 4 mg IVP Q6H PRN PRN Reason: Nausea/Vomiting Pantoprazole Sodium (Protonix Ec Tab) 40 mg PO 0630 [facility] Last Admin: 02/17/17 08:00 Dose: Not Given Sertraline HCl (Zoloft) 50 mg PO DAILY [facility] Last Admin: 02/17/17 11:58 Dose: 50 mg Tramadol HCl (Ultram) 50 mg PO TID PRN PRN Reason: Pain, moderate (4-7) Last Admin: 02/17/17 21:06 Dose: 50 mg - Labs Labs: 02/18/17 06:00 02/18/17 06:00 PT 14.1 Seconds (9.9-11.8) H 02/16/17 23:35 INR 1.31 (0.93-1.08) H 02/16/17 23:35 APTT 27.1 Seconds (23.7-30.8) 02/16/17 23:35 - Constitutional Appears: Non-toxic, No Acute Distress - Head Exam Head Exam: NORMAL INSPECTION - Neck Exam Neck Exam: absent: Meningismus - Respiratory Exam Respiratory Exam: Decreased Breath Sounds - Cardiovascular Exam Cardiovascular Exam: +S1, +S2 - GI/Abdominal Exam GI & Abdominal Exam: Soft. absent: Tenderness - Extremities Exam Additional comments: left leg with dressings in place Assessment and Plan - Assessment and Plan (Free Text) Plan: Assessment Consider right foot / hallux gangrene with probable osteomyelitis with leg ischemia history of bilateral HCAP right foot skin and skin structure infection, clinically improved - possible osteomyelitis of the right hallux on MRI CAD S/P CABG history of left hallux osteomyelitis S/P left BKA Insulin-Dependent Diabetes Mellitus HTN degenerative disc disease chronic Atrial fibrillation severe Peripheral Vascular Disease (PVD) Plan on Vancomycin and Merrem pending wound cx, blood cx, Podiatry and surgery evaluation will continue to follow clinically
--- NOTE | 2017-02-18 13:47 | PN ---
DATE: 02/18/2017 SUBJECTIVE: The patient is a 81-year-old, seen and examined, lying in bed, lethargic, not very commu nicative. PHYSICAL EXAMINATION: VITAL SIGNS: The patient is afebrile, pulse 80, respirations 17, blood pressure 116/60. LUNGS: Bilateral poor respiratory effort. HEART: S1, S2 audible. ABDOMEN: Soft, nontender. NEUROLOGIC: She is lethargic and minimally communicative. EXTREMITIES: Her right big toe has dry gangrene. LABORATORY EXAMINATION: WBC is 10.9, hemoglobin 7.6, hematocrit 23.7, platelets 346. Chemistry: So dium 143, potassium 3.7, chloride 116, CO2 of 16, BUN 13, creatinine 0.6, blood sugar of 254, AST 345 , ALT 106. Alkaline phosphatase is 178. LDH is 2753, troponin 3.76. Blood culture and urine cultur e are negative. X-ray of the foot shows subcutaneous emphysema at the level of distal first digit, s tatus post amputation at the level of 2nd and 3rd metatarsal and DJD changes. ASSESSMENT AND PLAN: 1. Sepsis. The source is multiple. She has right big toe ____, also she has a stage III sacral dec ubitus ulcer. 2. Anemia and the patient is a Bahai. 3. Coronary artery disease, status post open heart surgery earlier this year. 4. Non-insulin dependent diabetes. 5. Chronic atrial fibrillation. PLAN: I discussed with the patient's daughter, Nunu, who is by the bedside. They do not want any agg ressive measures. She has been made DNR. Give a dose of Venofer and continue on antibiotics. I dis cussed about the possibility of putting PEG tube for her better nutrition because the patient recentl y has been refusing to eat and that is why she was malnourished and dehydrated. If they agree, we mi ght proceed or she might be a candidate for hospice care. Swathi Frazier MD cc: [phone] TT: 02/18/2017 13:47:08 Confirmation # [id number] Dictation # [id number] jn
--- NOTE | 2017-02-18 14:29 | PN ---
DATE: 02/18/2017 The patient is hypotensive and at times bradycardic. PHYSICAL EXAMINATION: VITAL SIGNS: Most recent systolic blood pressure is in the 50s and heart rate in the lower 60s, toda y's temperature 98.6, respirations 24. HEENT: Pale conjunctivae. CHEST: Very poor air entry. HEART: S1, S2 regular. EXTREMITIES: Left below knee amputation and dry gangrene of the right big toe with right heel ulcer. LABORATORIES: Hemoglobin and hematocrit 7.6 and 23.7, white count and platelet count are within norm al limits. SMA-7: Sodium 147, potassium 3.9, chloride 118, CO2 18, glucose 164, BUN 15, creatinine 0.7. Potassium is within normal at 6.7. Today's troponin is 3.76. Echocardiographic study report r evealed borderline concentric LVH with severely impaired systolic function and severe septal hypokine sis. Ejection fraction was measured at around 30%. Hemodynamically significant valvular stenosis ca nnot be excluded. Moderate to severe pulmonary hypertension. Head CT scan without contrast: No acu te hemorrhage, no significant interval change. ASSESSMENT: 1. Cardiomyopathy. 2. Septic shock. 3. Hypotension and oliguria. 4. Aortic stenosis. 5. Stage III sacral decubitus. 6. Peripheral vascular disease, status post left below-knee amputation with gangrenous right big toe . 7. Worsening anemia. 8. Consider non-ST elevation myocardial infarction. RECOMMENDATIONS: Case was discussed at length with the patient's son and the patient's daughter who decided to sign DNR/DNI. In the meantime, continue current conservative medical approach including a spirin 81 mg once a day, amiodarone 200 mg daily, Levophed infusion was resumed for hypotension. Con tinue Lipitor 10 mg once a day. Lopressor will be withheld. Continue IV meropenem at 1 gram q. 8 ho urs and adequate normal saline hydration as well as IV vancomycin 750 mg q. 12 hours. The prognosis is grave and was conveyed to the patient's family. Jad Carrillo MD cc: [phone] TT: 02/18/2017 14:28:23 Confirmation # [id number] Dictation # [id number] jn
[2017-02-18 15:37] LABS: ALB/GLOB RATIO 0.7 (1.1-1.8); ALKALINE PHOSPHATASE 257 U/L (38-133); ALT/SGPT 231 U/L (7-56); BILIRUBIN,TOTAL 1.1 mg/dL (0.2-1.3); BLOOD UREA NITROGEN 13 mg/dL (7-21); CALCIUM 7.7 mg/dL (8.4-10.5); CARBON DIOXIDE 13 mmol/L (21-33); CHLORIDE 118 mmol/L (98-107); GFR AFRICAN-AMERICAN > 60; GLUCOSE,RANDOM 136 mg/dL (70-110); MAGNESIUM 2.2 mg/dL (1.7-2.2); POTASSIUM 4.2 mmol/L (3.6-5.0); SODIUM 145 mmol/L (132-148); TOTAL PROTEIN 4.9 g/dL (5.8-8.3)
[2017-02-18 15:47] LABS: AST/SGOT 1113 U/L (15-39)
--- NOTE | 2017-02-18 15:52 | CP.PCM.PCO ---
Physician Communication Note - Physician Communication Note Physician Communication Note: Cond Deteriorating(20micLevophed)Family OK-Grave Prognosis now
--- NOTE | 2017-02-18 16:08 | CARD ---
APPROVED REPORT EKG Measurement Heart [id number] <Conclusion> Atrial fibrillation Low voltage QRS Septal infarct, age undetermined Abnormal ECG
--- NOTE | 2017-02-18 16:10 | CARD ---
APPROVED REPORT EKG Measurement Heart [id number] <Conclusion> Atrial fibrillation with premature ventricular or aberrantly conducted complexes Septal infarct, age undetermined Abnormal ECG
--- NOTE | 2017-02-18 16:19 | CARD ---
APPROVED REPORT EKG Measurement Heart [id number] [place] 112P [id number] <Conclusion> Sinus rhythm with premature atrial complexes with junctional escape complexes ST & T wave abnormality, consider anterior ischemia Prolonged QT Abnormal ECG
--- NOTE | 2017-02-18 19:02 | US ---
PROCEDURE: Lower extremity JOSE exam HISTORY: Peripheral vascular disease with ischemic pain. Previous left BKA. PHYSICIAN(S): Neftali Nick MD. FINDINGS: The vessels the calcified at all levels. The right resting JOSE is not obtainable. The brachial systolic pressures are symmetric. The low thigh PVR waveforms are severely blunted bilaterally. This is consistent with bilateral aortoiliac disease. . The right calf, ankle, and metatarsal waveforms are severely blunted and nearly flat. IMPRESSION: 1. Severe aortoiliac disease. 2. The right PVR waveforms are severely blunted and nearly flat. This is consistent with severe multilevel occlusive disease.
--- NOTE | 2017-02-18 19:50 | CP.PCM.PN ---
Subjective - Date & Time of Evaluation Date of Evaluation: 02/18/17 Time of Evaluation: 10:00 - Subjective Subjective: Surgery for Dr. Gonzalez Pt s&e w attending. Pt is on pressors and arouasable but doesn't response to verbal commands. Spoke to family about poor prognosis. Family understands. Objective - Vital Signs/Intake and Output Vital Signs (last 24 hours): Temp Pulse Resp BP Pulse Ox 97 F L 55 L 24 97/50 L 82 L 02/18/17 16:38 02/18/17 18:35 02/18/17 18:00 02/18/17 17:25 02/18/17 18:00 Intake and Output: 02/18/17 02/19/17 18:59 06:59 Intake Total 5426.5 Output Total 5 Balance 5421.5 - Medications Medications: Current Medications Acetaminophen (Tylenol 325mg Tab) 650 mg PO Q6H PRN PRN Reason: Fever >100.4 F Amiodarone HCl (Cordarone) 200 mg PO DAILY [facility] Last Admin: 02/18/17 09:44 Dose: 200 mg Aspirin (Aspirin Chewable) 81 mg PO DAILY [facility] Last Admin: 02/18/17 09:44 Dose: 81 mg Atorvastatin Calcium (Lipitor) 10 mg PO DIN [facility] Last Admin: 02/18/17 17:30 Dose: 10 mg Collagenase (Santyl) 0 gm TOP DAILY [facility] Last Admin: 02/18/17 09:46 Dose: 1 applic Enoxaparin Sodium (Lovenox) 50 mg SC Q12H [facility] PRN Reason: Protocol Last Admin: 02/18/17 09:47 Dose: 50 mg Folic Acid (Folic Acid) 1 mg PO DAILY [facility] Last Admin: 02/18/17 09:44 Dose: 1 mg Vancomycin HCl (Vancomycin 750 Mg In Ns) 750 mg in 250 mls @ 167 mls/hr IVPB Q12H [facility] PRN Reason: Protocol Last Admin: 02/18/17 12:48 Dose: 167 mls/hr Sodium Chloride (Sodium Chloride 0.9%) 1,000 mls @ 100 mls/hr IV .Q10H [facility] Last Admin: 02/18/17 09:47 Dose: 100 mls/hr NOREPINEPHRINE BIT/0.9 % NACL (Levophed 4 Mg/ 250 Ml Ns Premixed) 4 mg in 250 mls @ 15 mls/hr IV .[id number] PRN; Protocol; 4 MCG/MIN PRN Reason: TITRATE PER MD ORDER Last Titration: 02/18/17 18:12 Dose: 20 mcg/min, 75 mls/hr Meropenem 1g/NS 100mL IVPB (Meropenem 1g/Ns 100ml Ivpb) 1 gm in 100 mls @ 100 mls/hr IVPB Q8 [facility] PRN Reason: Protocol Stop: 02/24/17 06:16 Last Admin: 02/18/17 13:24 Dose: 100 mls/hr Insulin Human Lispro (Humalog Low) 0 units SC ACHS [facility] PRN Reason: Protocol Last Admin: 02/18/17 17:31 Dose: Not Given Metoprolol Tartrate (Lopressor) 25 mg PO Q12 [facility] Last Admin: 02/18/17 09:45 Dose: 25 mg Mupirocin (Bactroban Ointment) 0 gm NS BID [facility] Stop: 02/23/17 10:01 Last Admin: 02/18/17 17:30 Dose: 1 applic Ondansetron HCl (Zofran Inj) 4 mg IVP Q6H PRN PRN Reason: Nausea/Vomiting Pantoprazole Sodium (Protonix Ec Tab) 40 mg PO 0630 [facility] Last Admin: 02/18/17 08:18 Dose: 40 mg Sertraline HCl (Zoloft) 50 mg PO DAILY [facility] Last Admin: 02/18/17 09:44 Dose: 50 mg Tramadol HCl (Ultram) 50 mg PO TID [facility] Last Admin: 02/18/17 17:50 Dose: Not Given - Labs Labs: 02/18/17 06:00 02/18/17 14:30 PT 18.5 Seconds (9.9-11.8) H 02/18/17 12:05 INR 1.71 (0.93-1.08) H 02/18/17 12:05 APTT 50.5 Seconds (23.7-30.8) H 02/18/17 12:05 - Constitutional Appears: Chronically Ill - Head Exam Head Exam: ATRAUMATIC, NORMAL INSPECTION, NORMOCEPHALIC - Eye Exam Eye Exam: EOMI, Normal appearance, PERRL Pupil Exam: NORMAL ACCOMODATION, PERRL - ENT Exam ENT Exam: Mucous Membranes Moist - Respiratory Exam Respiratory Exam: Decreased Breath Sounds - Cardiovascular Exam Cardiovascular Exam: REGULAR RHYTHM - GI/Abdominal Exam GI & Abdominal Exam: Soft. absent: Distended, Tenderness - Extremities Exam Extremities Exam: absent: Full ROM, Normal Inspection Additional comments: BKA L - Back Exam Additional comments: L hip wounds : eschar 5x5cm. TTP - Neurological Exam Neurological Exam: absent: Alert, Oriented x3 - Skin Skin Exam: Erythema. absent: Normal Color Assessment and Plan - Assessment and Plan (Free Text) Assessment: 81 y/o female w/ septic shock most likely 2/2 gangrenous right great toe, however multiple wounds could be source Plan: -IV abx -f/u melo culture -medical management per ICU team -recommend wound care eval -santyl to left hip -medihoney to sacrum w/ optifoam overlying dressing -recommend podiatry consult for great toe -IVF hydration -strict IsOs -d/w Dr. Gonzalez
[2017-02-19] MEDS ORDERED: Dextrose 50% SYRINGE Inj (50 ml) IVP ONE (00:48)
[2017-02-19] MEDS ORDERED: Albuterol-Ipratrop 3 mg / 0.5 (3 ml) UD IH STA (02:13)
[2017-02-19] MEDS ORDERED: Morphine 2 mg/ml ISec IVP STA (02:14)
[2017-02-19 04:34] VITALS: RESP 19
[2017-02-19] MEDS: NOREPINEPHRINE BIT/0.9 % NACL 4 MG/250 ML BAG IV PRN (04:57)
[2017-02-19 05:43] LABS: HEMATOCRIT 24.7 % (36.0-48.0); MEAN CELL VOLUME 93.6 fL (80.0-105.0); MEAN CORPUSCULAR HEMOGLOBIN 28.4 pg (25.0-35.0); MEAN CORPUSCULAR HGB CONC 30.4 g/dl (31.0-37.0); MEAN PLATELET VOLUME 8.8 fl (7.0-11.0); PLATELET COUNT 280 10^3/uL (120.0-450.0); RED CELL DISTRIBUTION WIDTH 19.2 % (11.5-14.5); WHITE BLOOD COUNT 13.1 10^3/ul (4.5-11.0)
[2017-02-19 05:46] LABS: ADD MANUAL DIFF? YES
[2017-02-19 05:48] LABS: INR 2.69 (0.93-1.08); PARTIAL THROMBOPLASTIN TIME 51.9 Seconds (23.7-30.8)
[2017-02-19 05:51] LABS: ALB/GLOB RATIO 0.7 (1.1-1.8); ALKALINE PHOSPHATASE 265 U/L (38-133); ALT/SGPT 735 U/L (7-56); BILIRUBIN,TOTAL 1.4 mg/dL (0.2-1.3); BLOOD UREA NITROGEN 14 mg/dL (7-21); CALCIUM 7.6 mg/dL (8.4-10.5); CARBON DIOXIDE 6 mmol/L (21-33); CHLORIDE 122 mmol/L (98-107); GFR AFRICAN-AMERICAN > 60; GLUCOSE,RANDOM 113 mg/dL (70-110); MAGNESIUM 2.1 mg/dL (1.7-2.2); PHOSPHOROUS 4.5 mg/dL (2.5-4.5); POTASSIUM 4.3 mmol/L (3.6-5.0); SODIUM 150 mmol/L (132-148); TOTAL PROTEIN 4.6 g/dL (5.8-8.3)
[2017-02-19] MEDS: Pantoprazole 40 mg EC Tab PO SCH (05:54)
[2017-02-19] MEDS: Sodium Chloride 0.9% 1,000 ML IV SCH (06:10)
[2017-02-19] MEDS: Meropenem 1g/NS 100mL IVPB 1 GM/100 ML PIGGYBACK IVPB SCH (06:12)
[2017-02-19 06:38] LABS: AST/SGOT 5888 U/L (15-39)
[2017-02-19 06:47] LABS: ANISOCYTOSIS 1+; BAND 8 % (0-2); NEUTROPHIL 85 % (50.0-70.0); PLATELET ESTIMATE NORMAL (NORMAL); POLYCHROMASIA SLIGHT
[2017-02-19 06:48] LABS: BURR CELLS 2+; HYPOCHROMIA 1+
[2017-02-19] MEDS ORDERED: Sodium Bicarbonate (8.4%) 50 Meq Syringe IVP ONE (06:56)
--- NOTE | 2017-02-19 08:02 | CP.PCM.PCO ---
Physician Communication Note - Physician Communication Note Physician Communication Note: MSOF:Prognosis GRAVE
[2017-02-19] MEDS: Insulin Lispro (humaLOG) LOW Coverage SC SCH (08:14)
--- NOTE | 2017-02-19 09:47 | CP.PCM.PN ---
Subjective - Date & Time of Evaluation Date of Evaluation: 02/19/17 Time of Evaluation: 09:43 - Subjective Subjective: ICU Progress Note Patient seen and examined at bedside. Overnight patient had a poor urine output. Her mentation has decreased. Family is at bedside. Decided on doing comfort care. Objective - Vital Signs/Intake and Output Vital Signs (last 24 hours): Temp Pulse Resp BP Pulse Ox 97.7 F 80 19 149/102 H 98 02/19/17 04:00 02/19/17 04:07 02/19/17 04:07 02/19/17 04:07 02/19/17 04:07 Intake and Output: 02/19/17 02/19/17 06:59 18:59 Intake Total 2958 0 Output Total 5 Balance 2953 0 - Medications Medications: Current Medications Acetaminophen (Tylenol 325mg Tab) 650 mg PO Q6H PRN PRN Reason: Fever >100.4 F Collagenase (Santyl) 0 gm TOP DAILY [facility] Last Admin: 02/18/17 09:46 Dose: 1 applic NOREPINEPHRINE BIT/0.9 % NACL (Levophed 4 Mg/ 250 Ml Ns Premixed) 4 mg in 250 mls @ 15 mls/hr IV .[id number] PRN; Protocol; 4 MCG/MIN PRN Reason: TITRATE PER MD ORDER Last Titration: 02/19/17 07:05 Dose: 20 mcg/min, 75 mls/hr Lorazepam (Ativan) 1 mg IVP Q6H [facility] PRN Reason: Protocol Mupirocin (Bactroban Ointment) 0 gm NS BID [facility] Stop: 02/23/17 10:01 Last Admin: 02/18/17 17:30 Dose: 1 applic Ondansetron HCl (Zofran Inj) 4 mg IVP Q6H PRN PRN Reason: Nausea/Vomiting - Labs Labs: 02/19/17 05:00 02/19/17 05:00 PT 29.1 Seconds (9.9-11.8) H 02/19/17 05:00 INR 2.69 (0.93-1.08) H 02/19/17 05:00 APTT 51.9 Seconds (23.7-30.8) H 02/19/17 05:00 - Constitutional Appears: Chronically Ill - Head Exam Head Exam: ATRAUMATIC, NORMAL INSPECTION, NORMOCEPHALIC - Eye Exam Eye Exam: Normal appearance, PERRL Pupil Exam: NORMAL ACCOMODATION, PERRL - ENT Exam ENT Exam: Mucous Membranes Moist - Respiratory Exam Respiratory Exam: Rales, Rhonchi, NORMAL BREATHING PATTERN. absent: Wheezes Additional comments: chest wall abscess- dressing in place - Cardiovascular Exam Cardiovascular Exam: REGULAR RHYTHM, +S1, +S2. absent: Gallop, Rubs, Murmur - GI/Abdominal Exam GI & Abdominal Exam: Soft, Normal Bowel Sounds. absent: Rigid, Tenderness, Mass , Rebound - Extremities Exam Extremities Exam: absent: Pedal Edema Additional comments: L BKA, dressing on R toe and heel in place - Neurological Exam Neurological Exam: CN II-XII Intact. absent: Alert, Awake - Skin Skin Exam: Normal Color, Warm Assessment and Plan - Assessment and Plan (Free Text) Assessment: This is 81y F with PMH end stage dementia, decubitus ulcers, L BKA who is here for septic shock with MODS. Plan: Neuro: Lethargic Resp: Pt DNI On Ventimask Maintain SpO2>90% CV: On Levophed- will be d/c Pt on comfort care
[2017-02-19] MEDS ORDERED: HYDROmorphone 1 mg/ml PCA 25 ML IV PRN ×2 (10:22→10:51)
[2017-02-19] MEDS: Collagenase 250 Units/gm Ointment(30 gm) TOP SCH (11:17)
[2017-02-19 11:19] VITALS: BP 83/61; O2SAT 85
[2017-02-19 11:20] VITALS: TEMP 96.6
[2017-02-19 11:27] VITALS: PULSE 32
--- NOTE | 2017-02-19 11:47 | CP.PCM.PRO ---
Pronouncement of Note - Clinical Findings Physical Exam: No Response Verbal/Painful Stimuli, Absent Heart & Breath Sounds , No Pupillary Light Reflex, No Corneal Reflex, Absence of Vital Signs - Pronouncement Time Time of Pronouncement of : 11:25 - Notifications Pronouncement Notifications: Family Notified Clerical Dentist Assistant Notified: Yes - Autopsy Autopsy Requested: No - [place] [id number]
--- NOTE | 2017-02-19 12:10 | CP.CCUPN ---
CCU Subjective - Physician Review Events Since Last Encounter (Free Text): 02/19/17 12:00 overnight remained hypotensive and w/ difficulty to breath. Mentation poor. Family this morning planning to make patient Comfort care. CCU Objective - Vital Signs / Intake & Output Vital Signs (Last 4 hours): Vital Signs Pulse Resp Pulse Ox 02/19/17 11:20 32 L 02/19/17 11:00 57 L 19 85 L 02/19/17 10:00 67 20 88 L 02/19/17 09:00 67 22 85 L Intake and Output (Last 8hrs): Intake & Output 02/18/17 02/19/17 02/19/17 22:59 06:59 14:59 Intake Total 5298 2718 0 Output Total 5 5 Balance 5293 2713 0 Intake: IV 5058 2688 0 Right Antecubital 2438 Right Internal Jugular 4568 Oral 240 30 Output: Urine 5 5 Urethral (Leyva) 5 5 Other: Voiding Method Indwelling Catheter - Physical Exam Physical Exam Limitations: Positive for: Altered Mental Status Head: Positive for: Atraumatic, Normocephalic Pupils: Positive for: PERRL Extroacular Muscles: Positive for: EOMI Conjunctiva: Positive for: Normal. Negative for: Injected, Icteric Mouth: Positive for: Moist Mucous Membranes, Dry Nose (Internal): Positive for: Normal Inspection Respiratory/Chest: Positive for: Clear to Auscultation, Good Air Exchange. Negative for: Rales, Rhonchi Cardiovascular: Positive for: Regular Rate and Rhythm, Normal S1, S2. Negative for: Tachycardic Abdomen: Positive for: Normal Bowel Sounds. Negative for: Distention Upper Extremity: Positive for: Normal Inspection, Edema (L) Lower Extremity: Positive for: Normal Inspection, Other (L BKA. R toe gangrene, heel ulcer, scaral ulcer stage 4, unstagable hip) Skin: Positive for: Warm, Dry Psychiatric: Positive for: Alert - Medications Active Medications: Active Medications Generic Name Dose Route Start Last Admin Trade Name Freq PRN Reason Stop Dose Admin Acetaminophen 650 mg 02/16/17 22:58 Tylenol 325mg Tab PO Q6H PRN Fever >100.4 F Collagenase 0 gm 02/17/17 10:00 02/19/17 11:17 Santyl TOP Not Given DAILY AMANUEL NOREPINEPHRINE BIT/0.9 % NACL 4 mg in 250 mls @ 15 mls/hr 02/17/17 00:00 07:05 Levophed 4 Mg/ 250 Ml Ns Premixed IV 20 mcg/min .[id number] PRN 75 mls/hr TITRATE PER MD ORDER Titration Protocol 4 MCG/MIN Hydromorphone HCl 25 mls @ 1 mls/hr 02/19/17 10:51 02/19/17 11:03 Dilaudid-Hp 1 Mg/Ml File System Installer IV 1 mls/hr PRN PRN Administration MEDICAL RECORD CONSULTANT PER MD ORDER Protocol 1 MG/HR Lorazepam 1 mg 02/19/17 09:45 02/19/17 11:17 Ativan IVP Not Given Q6H [facility] Protocol Mupirocin 0 gm 02/18/17 18:00 02/19/17 11:17 Bactroban Ointment NS 02/23/17 10:01 Not Given BID AMANUEL Ondansetron HCl 4 mg 02/16/17 22:58 Zofran Inj IVP Q6H PRN Nausea/Vomiting - Patient Studies Lab Studies: Microbiology Studies 02/17/17 11:40 Gram Stain - Final Other: Please Indicate Wound Culture - Final Pseudomonas Aeruginosa Vancomycin Res E.faecalis 02/17/17 11:40 Gram Stain - Final Other: Please Indicate Wound Culture - Final Pseudomonas Aeruginosa Methicillin Resistant S Aureus 02/17/17 11:40 Gram Stain - Final Other: Please Indicate Wound Culture - Final Pseudomonas Aeruginosa Corynebacterium Species 02/17/17 11:40 Gram Stain - Final Other: Please Indicate Wound Culture - Final Staphylococcus Aureus 02/17/17 00:15 Blood Culture - Preliminary Blood-Venous NO GROWTH AFTER 48 HOURS 02/16/17 23:39 Blood Culture - Preliminary Blood-Venous NO GROWTH AFTER 48 HOURS 02/17/17 03:00 MRSA Culture (Admit) - Final Naris MRSA DETECTED Lab Studies 02/19/17 02/19/17 02/19/17 Range/Units 05:00 05:00 05:00 WBC 13.1 H D (4.5-11.0) 10^3/ul RBC 2.64 L (3.5-6.1) 10^6/uL Hgb 7.5 L (12.0-16.0) gm/dL Hct 24.7 L (36.0-48.0) % MCV 93.6 (80.0-105.0) fL MCH 28.4 (25.0-35.0) pg MCHC 30.4 L (31.0-37.0) g/dl RDW 19.2 H (11.5-14.5) % Plt Count 280 (120.0-450.0) 10^3/uL MPV 8.8 (7.0-11.0) fl Neutrophils % (Manual) 85 H (50.0-70.0) % Band Neutrophils % 8 H (0-2) % Lymphocytes % (Manual) 4 L (22.0-35.0) % Monocytes % (Manual) 3 (1.0-6.0) % Platelet Evaluation Normal (NORMAL) Polychromasia Slight Hypochromasia 1+ Anisocytosis (manual) 1+ Spurgeon Cells 2+ Acanthocytes (Spur) Slight PT 29.1 H (9.9-11.8) Seconds INR 2.69 H (0.93-1.08) APTT 51.9 H (23.7-30.8) Seconds pO2 (30-55) mm/Hg VBG pH (7.32-7.43) VBG pCO2 (40-60) VBG HCO3 (21-28) mmol/l VBG Total CO2 (22-28) mmol.L VBG O2 Sat (Calc) (40-65) % VBG Base Excess (0.0-2.0) mmol/L VBG Potassium (3.6-5.2) mmol/L Glucose (65-105) mg/dl Lactate (0.7-2.1) mmol/L FiO2 % Sodium 150 H (132-148) mmol/L Potassium 4.3 (3.6-5.0) mmol/L Chloride 122 H (98-107) mmol/L Carbon Dioxide 6 L D (21-33) mmol/L Anion Gap 26 H (10-20) BUN 14 (7-21) mg/dL Creatinine 0.9 (0.5-1.4) mg/dL Est GFR ( Amer) > 60 Est GFR (Non-Af Amer) > 60 POC Glucose (mg/dL) (65-110) mg/dL Random Glucose 113 H (70-110) mg/dL Calcium 7.6 L (8.4-10.5) mg/dL Phosphorus 4.5 (2.5-4.5) mg/dL Magnesium 2.1 (1.7-2.2) mg/dL Total Bilirubin 1.4 H (0.2-1.3) mg/dL AST 5888 H (15-39) U/L ALT 735 H (7-56) U/L Alkaline Phosphatase 265 H (38-133) U/L Total Protein 4.6 L (5.8-8.3) g/dL Albumin 1.9 L (3.0-4.8) g/dL Globulin 2.7 gm/dL Albumin/Globulin Ratio 0.7 L (1.1-1.8) Venous Blood Potassium (3.6-5.2) mmol/L 02/19/17 02/19/17 02/18/17 Range/Units 02:33 00:43 21:51 WBC (4.5-11.0) 10^3/ul RBC (3.5-6.1) 10^6/uL Hgb (12.0-16.0) gm/dL Hct (36.0-48.0) % MCV (80.0-105.0) fL MCH (25.0-35.0) pg MCHC (31.0-37.0) g/dl RDW (11.5-14.5) % Plt Count (120.0-450.0) 10^3/uL MPV (7.0-11.0) fl Neutrophils % (Manual) (50.0-70.0) % Band Neutrophils % (0-2) % Lymphocytes % (Manual) (22.0-35.0) % Monocytes % (Manual) (1.0-6.0) % Platelet Evaluation (NORMAL) Polychromasia Hypochromasia Anisocytosis (manual) Jonathan Cells Acanthocytes (Spur) PT (9.9-11.8) Seconds INR (0.93-1.08) APTT (23.7-30.8) Seconds pO2 (30-55) mm/Hg VBG pH (7.32-7.43) VBG pCO2 (40-60) VBG HCO3 (21-28) mmol/l VBG Total CO2 (22-28) mmol.L VBG O2 Sat (Calc) (40-65) % VBG Base Excess (0.0-2.0) mmol/L VBG Potassium (3.6-5.2) mmol/L Glucose (65-105) mg/dl Lactate (0.7-2.1) mmol/L FiO2 % Sodium (132-148) mmol/L Potassium (3.6-5.0) mmol/L Chloride (98-107) mmol/L Carbon Dioxide (21-33) mmol/L Anion Gap (10-20) BUN (7-21) mg/dL Creatinine (0.5-1.4) mg/dL Est GFR ( Amer) Est GFR (Non-Af Amer) POC Glucose (mg/dL) 118 H 64 L 72 (65-110) mg/dL Random Glucose (70-110) mg/dL Calcium (8.4-10.5) mg/dL Phosphorus (2.5-4.5) mg/dL Magnesium (1.7-2.2) mg/dL Total Bilirubin (0.2-1.3) mg/dL AST (15-39) U/L ALT (7-56) U/L Alkaline Phosphatase (38-133) U/L Total Protein (5.8-8.3) g/dL Albumin (3.0-4.8) g/dL Globulin gm/dL Albumin/Globulin Ratio (1.1-1.8) Venous Blood Potassium (3.6-5.2) mmol/L 02/18/17 02/18/17 02/18/17 Range/Units 16:35 14:30 12:23 WBC (4.5-11.0) 10^3/ul RBC (3.5-6.1) 10^6/uL Hgb (12.0-16.0) gm/dL Hct (36.0-48.0) % MCV (80.0-105.0) fL MCH (25.0-35.0) pg MCHC (31.0-37.0) g/dl RDW (11.5-14.5) % Plt Count (120.0-450.0) 10^3/uL MPV (7.0-11.0) fl Neutrophils % (Manual) (50.0-70.0) % Band Neutrophils % (0-2) % Lymphocytes % (Manual) (22.0-35.0) % Monocytes % (Manual) (1.0-6.0) % Platelet Evaluation (NORMAL) Polychromasia Hypochromasia Anisocytosis (manual) Spurgeon Cells Acanthocytes (Spur) PT (9.9-11.8) Seconds INR (0.93-1.08) APTT (23.7-30.8) Seconds pO2 36 (30-55) mm/Hg VBG pH 7.25 L (7.32-7.43) VBG pCO2 35.0 L (40-60) VBG HCO3 15.3 L (21-28) mmol/l VBG Total CO2 16.4 L (22-28) mmol.L VBG O2 Sat (Calc) 60.3 (40-65) % VBG Base Excess -11.0 L (0.0-2.0) mmol/L VBG Potassium 3.9 (3.6-5.2) mmol/L Glucose 171 H (65-105) mg/dl Lactate 7.7 H* (0.7-2.1) mmol/L FiO2 21.0 % Sodium 145 148.0 (132-148) mmol/L Potassium 4.2 (3.6-5.0) mmol/L Chloride 118 H 121.0 H (98-107) mmol/L Carbon Dioxide 13 L (21-33) mmol/L Anion Gap 18 (10-20) BUN 13 (7-21) mg/dL Creatinine 0.7 (0.5-1.4) mg/dL Est GFR ( Amer) > 60 Est GFR (Non-Af Amer) > 60 POC Glucose (mg/dL) 155 H (65-110) mg/dL Random Glucose 136 H (70-110) mg/dL Calcium 7.7 L (8.4-10.5) mg/dL Phosphorus 3.0 (2.5-4.5) mg/dL Magnesium 2.2 (1.7-2.2) mg/dL Total Bilirubin 1.1 (0.2-1.3) mg/dL AST 1113 H (15-39) U/L ALT 231 H (7-56) U/L Alkaline Phosphatase 257 H (38-133) U/L Total Protein 4.9 L (5.8-8.3) g/dL Albumin 2.0 L (3.0-4.8) g/dL Globulin 2.9 gm/dL Albumin/Globulin Ratio 0.7 L (1.1-1.8) Venous Blood Potassium 3.9 (3.6-5.2) mmol/L 02/18/17 02/18/17 02/18/17 Range/Units 12:09 12:05 11:35 WBC (4.5-11.0) 10^3/ul RBC (3.5-6.1) 10^6/uL Hgb (12.0-16.0) gm/dL Hct (36.0-48.0) % MCV (80.0-105.0) fL MCH (25.0-35.0) pg MCHC (31.0-37.0) g/dl RDW (11.5-14.5) % Plt Count (120.0-450.0) 10^3/uL MPV (7.0-11.0) fl Neutrophils % (Manual) (50.0-70.0) % Band Neutrophils % (0-2) % Lymphocytes % (Manual) (22.0-35.0) % Monocytes % (Manual) (1.0-6.0) % Platelet Evaluation (NORMAL) Polychromasia Hypochromasia Anisocytosis (manual) Spurgeon Cells Acanthocytes (Spur) PT 18.5 H (9.9-11.8) Seconds INR 1.71 H (0.93-1.08) APTT 50.5 H (23.7-30.8) Seconds pO2 (30-55) mm/Hg VBG pH (7.32-7.43) VBG pCO2 (40-60) VBG HCO3 (21-28) mmol/l VBG Total CO2 (22-28) mmol.L VBG O2 Sat (Calc) (40-65) % VBG Base Excess (0.0-2.0) mmol/L VBG Potassium (3.6-5.2) mmol/L Glucose (65-105) mg/dl Lactate (0.7-2.1) mmol/L FiO2 % Sodium 147 (132-148) mmol/L Potassium 3.9 (3.6-5.0) mmol/L Chloride 118 H (98-107) mmol/L Carbon Dioxide 18 L (21-33) mmol/L Anion Gap 15 (10-20) BUN 13 (7-21) mg/dL Creatinine 0.7 (0.5-1.4) mg/dL Est GFR ( Amer) > 60 Est GFR (Non-Af Amer) > 60 POC Glucose (mg/dL) 222 H (65-110) mg/dL Random Glucose 165 H (70-110) mg/dL Calcium 6.7 L* (8.4-10.5) mg/dL Phosphorus 2.4 L (2.5-4.5) mg/dL Magnesium 2.2 (1.7-2.2) mg/dL Total Bilirubin (0.2-1.3) mg/dL AST (15-39) U/L ALT (7-56) U/L Alkaline Phosphatase (38-133) U/L Total Protein (5.8-8.3) g/dL Albumin (3.0-4.8) g/dL Globulin gm/dL Albumin/Globulin Ratio (1.1-1.8) Venous Blood Potassium (3.6-5.2) mmol/L Laboratory Results - last 24 hr 02/18/17 02/18/17 02/18/17 11:35 12:05 12:09 WBC RBC Hgb Hct MCV MCH MCHC RDW Plt Count MPV Neutrophils % (Manual) Band Neutrophils % Lymphocytes % (Manual) Monocytes % (Manual) Platelet Evaluation Polychromasia Hypochromasia Anisocytosis (manual) Spurgeon Cells Acanthocytes (Spur) PT 18.5 H INR 1.71 H APTT 50.5 H pO2 VBG pH VBG pCO2 VBG HCO3 VBG Total CO2 VBG O2 Sat (Calc) VBG Base Excess VBG Potassium Glucose Lactate FiO2 Sodium 147 Potassium 3.9 Chloride 118 H Carbon Dioxide 18 L Anion Gap 15 BUN 13 Creatinine 0.7 Est GFR ( Amer) > 60 Est GFR (Non-Af Amer) > 60 POC Glucose (mg/dL) 222 H Random Glucose 165 H Calcium 6.7 L* Phosphorus 2.4 L Magnesium 2.2 Total Bilirubin AST ALT Alkaline Phosphatase Total Protein Albumin Globulin Albumin/Globulin Ratio Venous Blood Potassium 02/18/17 02/18/17 02/18/17 12:23 14:30 16:35 WBC RBC Hgb Hct MCV MCH MCHC RDW Plt Count MPV Neutrophils % (Manual) Band Neutrophils % Lymphocytes % (Manual) Monocytes % (Manual) Platelet Evaluation Polychromasia Hypochromasia Anisocytosis (manual) Jonathan Cells Acanthocytes (Spur) PT INR APTT pO2 36 VBG pH 7.25 L VBG pCO2 35.0 L VBG HCO3 15.3 L VBG Total CO2 16.4 L VBG O2 Sat (Calc) 60.3 VBG Base Excess -11.0 L VBG Potassium 3.9 Glucose 171 H Lactate 7.7 H* FiO2 21.0 Sodium 148.0 145 Potassium 4.2 Chloride 121.0 H 118 H Carbon Dioxide 13 L Anion Gap 18 BUN 13 Creatinine 0.7 Est GFR ( Amer) > 60 Est GFR (Non-Af Amer) > 60 POC Glucose (mg/dL) 155 H Random Glucose 136 H Calcium 7.7 L Phosphorus 3.0 Magnesium 2.2 Total Bilirubin 1.1 AST 1113 H ALT 231 H Alkaline Phosphatase 257 H Total Protein 4.9 L Albumin 2.0 L Globulin 2.9 Albumin/Globulin Ratio 0.7 L Venous Blood Potassium 3.9 02/18/17 02/19/17 02/19/17 21:51 00:43 02:33 WBC RBC Hgb Hct MCV MCH MCHC RDW Plt Count MPV Neutrophils % (Manual) Band Neutrophils % Lymphocytes % (Manual) Monocytes % (Manual) Platelet Evaluation Polychromasia Hypochromasia Anisocytosis (manual) Spurgeon Cells Acanthocytes (Spur) PT INR APTT pO2 VBG pH VBG pCO2 VBG HCO3 VBG Total CO2 VBG O2 Sat (Calc) VBG Base Excess VBG Potassium Glucose Lactate FiO2 Sodium Potassium Chloride Carbon Dioxide Anion Gap BUN Creatinine Est GFR ( Amer) Est GFR (Non-Af Amer) POC Glucose (mg/dL) 72 64 L 118 H Random Glucose Calcium Phosphorus Magnesium Total Bilirubin AST ALT Alkaline Phosphatase Total Protein Albumin Globulin Albumin/Globulin Ratio Venous Blood Potassium 02/19/17 02/19/17 02/19/17 05:00 05:00 05:00 WBC 13.1 H D RBC 2.64 L Hgb 7.5 L Hct 24.7 L MCV 93.6 MCH 28.4 MCHC 30.4 L RDW 19.2 H Plt Count 280 MPV 8.8 Neutrophils % (Manual) 85 H Band Neutrophils % 8 H Lymphocytes % (Manual) 4 L Monocytes % (Manual) 3 Platelet Evaluation Normal Polychromasia Slight Hypochromasia 1+ Anisocytosis (manual) 1+ Spurgeon Cells 2+ Acanthocytes (Spur) Slight PT 29.1 H INR 2.69 H APTT 51.9 H pO2 VBG pH VBG pCO2 VBG HCO3 VBG Total CO2 VBG O2 Sat (Calc) VBG Base Excess VBG Potassium Glucose Lactate FiO2 Sodium 150 H Potassium 4.3 Chloride 122 H Carbon Dioxide 6 L D Anion Gap 26 H BUN 14 Creatinine 0.9 Est GFR ( Amer) > 60 Est GFR (Non-Af Amer) > 60 POC Glucose (mg/dL) Random Glucose 113 H Calcium 7.6 L Phosphorus 4.5 Magnesium 2.1 Total Bilirubin 1.4 H AST 5888 H ALT 735 H Alkaline Phosphatase 265 H Total Protein 4.6 L Albumin 1.9 L Globulin 2.7 Albumin/Globulin Ratio 0.7 L Venous Blood Potassium Fingerstick Blood Sugar Results: 113 Review of Systems - Review of Systems Systems not reviewed;Unavailable: Altered Mental Status Critical Care Progress Note - Nutrition Nutrition: Nutrition Category Date Time Status NPO Diet [DIET] Diets 02/17/17 Lunch Ordered Assessment/Plan - Assessment and Plan (Free Text) Assessment: 81 y/o F w /MODS/ Septic shock/ BLUE/ Metabolic acidosis/Gangrene/Osteomylitis On abx for gram + and Gram - coverage. Wound cx positive. Blood cx neg. BP low despite 7L NS and LEvophed for 24 hrs. DNR/DNI now comfort care measures, PCP added Dilaudid . Overwhelming infection in the setting of MODS and end stage dementia. Comfort care. Patient passed on 1125 am.Family aware and at bedside. cc time 45 min
--- NOTE | 2017-02-19 18:55 | DS ---
The patient is 81 years old, seen and examined. The patient is minimally responsive. She has gurgli ng on her secretion. She is lethargic. Family by the bedside. They have decided DO NOT RESUSCITATE and DO NOT INTUBATE. Discussed with patient's daughter, Nunu, who is by the bedside to start her on Dilaudid SHIPPING LEAD PERSON to keep her comfortable. PHYSICAL EXAMINATION: VITAL SIGNS: Afebrile, pulse 57, respirations 19, blood pressure 83/61. LUNGS: Bilateral coarse crackles bilaterally. HEART: S1, S2 audible, bradycardia. ABDOMEN: Soft. NEUROLOGIC: She is lethargic. She has multiple wound in her back, on feet and right big toe and yolanda l. LABORATORY EXAM: WBC 13, hemoglobin 7.5, hematocrit 24.7, platelet 280. PTT 29.1. INR 2.69. Chemi stry: Sodium 150, potassium 4.3, chloride 122, CO2 of 26, BUN 26, creatinine 0.9. Blood sugar of 11 3. ASSESSMENT AND PLAN: 1. Sepsis. 2. Acute renal failure. 3. Multiple wound including right big toe sacral decubitus. 4. Coronary artery disease, status post bypass. PLAN: Prognosis is very poor. Discussed with family at length. We will discontinue all aggressive measures including blood work and antibiotics. Will be started on Dilaudid SHIPPING LEAD PERSON and Ativan ____ clock to keep her comfortable. I got a call around 12:45 that patient . Family was by the bed side and body will be released. DISCHARGE DIAGNOSES: 1. Sepsis, acute renal failure. 2. Dehydration and malnutrition. 3. Coronary artery disease. Swathi Frazier MD cc: [id number] TT: 02/19/2017 18:54:44 sn
== END 2017-02-19 11:25 | DRG 871 ==
LOC: ED 18:23 → ERH 22:54 → CCU 02-17 02:46
PROVIDERS: ADMIT Internal Medicine; ATTEND Internal Medicine
PROC: 05HM33Z Insertion of Infusion Device into Right Internal Jugular Vein, Percutaneous Approach (ICD-10-PCS; principal; 2017-02-17)
DX: A41.9 Sepsis, unspecified organism (principal); L89.153 Pressure ulcer of sacral region, stage 3; I21.4 Non-ST elevation (NSTEMI) myocardial infarction; R65.21 Severe sepsis with septic shock; N17.9 Acute kidney failure, unspecified; E11.52 Type 2 diabetes mellitus with diabetic peripheral angiopathy with gangrene; E46 Unspecified protein-calorie malnutrition; I42.9 Cardiomyopathy, unspecified; E83.42 Hypomagnesemia; E87.2 Acidosis; L97.419 Non-pressure chronic ulcer of right heel and midfoot with unspecified severity; M86.8X7 Other osteomyelitis, ankle and foot; F03.90 Unspecified dementia, unspecified severity, without behavioral disturbance, psychotic disturbance, mood disturbance, and anxiety; E11.621 Type 2 diabetes mellitus with foot ulcer; E11.69 Type 2 diabetes mellitus with other specified complication; D64.9 Anemia, unspecified; E87.6 Hypokalemia; I25.10 Atherosclerotic heart disease of native coronary artery without angina pectoris; I10 Essential (primary) hypertension; I48.2 Chronic atrial fibrillation; I35.0 Nonrheumatic aortic (valve) stenosis; E86.0 Dehydration; Z74.01 Bed confinement status; Z66 Do not resuscitate; Z51.5 Encounter for palliative care; Z68.24 Body mass index [BMI] 24.0-24.9, adult; Z79.4 Long term (current) use of insulin; Z79.84 Long term (current) use of oral hypoglycemic drugs; Z95.1 Presence of aortocoronary bypass graft; Z95.5 Presence of coronary angioplasty implant and graft; Z89.512 Acquired absence of left leg below knee; Z87.891 Personal history of nicotine dependence